=== PATIENT | female | born 1935 | race African-American/Black ===

== ENCOUNTER 2016-11-02 11:40 | Emergency (ER) | payer MEDICARE ==
[~2016-11-02] VITALS: Ht 167.6 cm; Wt 65.0 kg
[~2016-11-02 11:40] MED LIST: CALTTAB PO; CARB0.5D16 EACH EYE; CLON.1 PO; DOCU1CAP39 PO; FERR324T4 PO; FURO20 PO; GABA600T PO; K-TA10TA5 PO; LEXA10TA PO; LISI-591 PO; OXYB5TAB33 PO; PERC5TAB12 PO; PRIL20CA PO
[2016-11-02 11:50] VITALS: BP 150/80; RESP 22; TEMP 99; O2SAT 94
[2016-11-02] MEDS ORDERED: SODIUM CHLORIDE 0.9% FLUSH 5 ML FLUSH IVF PRN (12:00)
--- NOTE | 2016-11-02 12:02 | PD ---
HPI Chief Complaint: Respiratory Symptoms Time Seen by Provider: 11:57 Travel History International Travel<30 days: No Contact w/Intl Traveler<30days: No Traveled to known affect area: No History of Present Illness HPI 81-year-old elderly female presents to the emergency department for evaluation of coughing and shortness of breath. The patient states she lives with her daughter. She arrived via EMS. The patient stated she started coughing this morning around 4:30 AM. She started coughing so hard that it made her short of breath. She denies any shortness of breath at this time. She states that she feels tired, but otherwise okay at this time. She denies any chest pain. No abdominal pain. She reports one episode of vomiting. No diarrhea or constipation. Patient states she saw her doctor this morning and stated her temperature was 99.5. She does not have a history of COPD or asthma. She denies any previous smoking history. No recent travel or surgeries. Patient has a PMH of HTN, SIL, diastolic dysfunction. PFSH Past Medical History Arthritis: Yes Asthma: No Anxiety: Yes Depression: No Heart Rhythm Problems: No Cancer: No Cardiovascular Problems: Yes High Cholesterol: No Chemotherapy: No Chest Pain: No Congestive Heart Failure: No COPD: No Cerebrovascular Accident: No Diabetes: No Diminished Hearing: Yes Endocrine: No Gastrointestinal Disorders: Yes GERD: Yes Genitourinary: Yes (INCONTINENCE) Headaches: No Hepatitis: No Hiatal Hernia: Yes Hypertension: Yes Immune Disorder: No Implanted Vascular Access Dvce: Yes Kidney Stones: No Musculoskeletal: Yes (SPINAL STENOSIS, OSTEOPOROSIS) Neurologic: Yes ("TIA'S") Psychiatric: Yes (CLAUSTROPHOBIA) Reproductive: No Respiratory: Yes Migraines: No Radiation Therapy: No Renal Failure: No Seizures: No Sickle Cell Disease: No Sleep Apnea: Yes (does not use cpap at home currently ) Thyroid Disease: No Ulcer: Yes : 6 Para: 6 Past Surgical History Abdominal Surgery: Yes (CHOLECYSTECTOMY, INSERTION NERVE STIMULATOR) AICD: No Arteriovenous Shunt: No Body Medical Devices: RT. ABD NERVE STIM, HARDWARE LEFT ARM/ RIGHT FEMUR, LEFT COCHLEAR IMPL. Cardiac Surgery: No Cholecystectomy: Yes Ear Surgery: Yes (COCHLEAR IMPLANT LEFT EAR) Endocrine Surgery: No Eye Surgery: No Gynecologic Surgery: Yes (HYSTERECTOMY) Hysterectomy: Yes Insulin Pump: No Joint Replacement: No Neurologic Surgery: No Oral Surgery: No Pacemaker: No Thoracic Surgery: No Other Surgery: Yes Social History Alcohol Use: No Tobacco Use: No Substance Use: No Allergies-Medications (Allergen,Severity, Reaction): Coded Allergies: Cymbalta (Unverified Adverse Reaction, Severe, NAUSEA, 03/26/16) Sinemet 10/100 (Unverified Adverse Reaction, Severe, HYPERTENSIOIN, LETHARGY, 03/26/16) Reported Meds & Prescriptions Reported Meds & Active Scripts Active Percocet 5-325 mg (Oxycodone/Acetaminophen) Oxycodone 5/325 Acetaminophen Tab 1 Tab PO Q6HR PRN hold for sedation Reported Prilosec 20 mg (Omeprazole) 20 Mg Cap 20 Mg PO BID K-Tabs (Potassium Chloride) 10 Meq Tab 10 Meq PO DAILY Catapres 0.1 mg (Clonidine HCl) 0.1 Mg Tab 1 Tab PO SBP>170 Colace 100 Mg Cap (Docusate Sodium) 100 Mg Cap 100 Mg PO DAILY Tears Naturale (Artificial Tears) 15 Ml Soln 1 Drop EACH EYE DAILY Gabapentin 600 Mg Tab 600 Mg PO QID Ferrous Sulfate 325 Mg Tab 325 Mg PO DAILY Lasix 20 Mg Tab (Furosemide) 20 Mg Tab 20 Mg PO DAILY Ditropan (Oxybutynin Chloride) 5 Mg Tab 5 Mg PO DAILY Caltrate 600+D (Calcium Carbonate/Cholecalciferol) + Tab 1 Tab PO DAILY Zestril 20 mg (Lisinopril) 20 Mg Tab 20 Mg PO DAILY Lexapro (Escitalopram Oxalate) 10 Mg Tab 10 Mg PO DAILY Review of Systems Except as stated in HPI: all other systems reviewed are Neg Physical Exam Narrative GENERAL: Well-developed well-nourished elderly female patient, afebrile. SKIN: Warm and dry. HEAD: Normocephalic. Atraumatic. EYES: No scleral icterus. No injection or drainage. NECK: Supple, trachea midline. No JVD or lymphadenopathy. CARDIOVASCULAR: Regular rate and rhythm without murmurs, gallops, or rubs. RESPIRATORY: Breath sounds equal bilaterally. No accessory muscle use. Lungs sounds clear to auscultation. GASTROINTESTINAL: Abdomen soft, non-tender, nondistended. MUSCULOSKELETAL: No cyanosis, or edema. BACK: Nontender without obvious deformity. No CVA tenderness. Data Data Last Documented VS Vital Signs Date Time Temp Pulse Resp B/P Pulse Ox O2 Delivery O2 Flow Rate FiO2 11/02/16 13:38 89 164/73 11/02/16 13:38 97 Room Air 11/02/16 11:54 2 11/02/16 11:50 99.0 22 Orders Complete Blood Count With Diff (11/02/16 11:52) Basic Metabolic Panel (Bmp) (11/02/16 11:52) B-Type Natriuretic Peptide (11/02/16 11:52) Magnesium (Mg) (11/02/16 11:52) Influenzae A/B Antigen (11/02/16 11:52) Iv Access Insert/Monitor (11/02/16 11:52) Electrocardiogram (11/02/16 11:52) Ecg Monitoring (11/02/16 11:52) Oximetry (11/02/16 11:52) Oxygen Administration (11/02/16 11:52) Chest, Single Ap (11/02/16 11:52) Sodium Chloride 0.9% Flush (Ns Flush) (11/02/16 12:00) Creatine Kinase (Cpk) (11/02/16 13:39) Troponin I (11/02/16 13:39) Labs Laboratory Tests Test 11/02/16 12:20 White Blood Count 14.4 TH/MM3 Red Blood Count 3.95 MIL/MM3 Hemoglobin 12.4 GM/DL Hematocrit 36.6 % Mean Corpuscular Volume 92.7 FL Mean Corpuscular Hemoglobin 31.4 PG Mean Corpuscular Hemoglobin 33.9 % Concent Red Cell Distribution Width 14.4 % Platelet Count 261 TH/MM3 Mean Platelet Volume 9.9 FL Neutrophils (%) (Auto) 78.3 % Lymphocytes (%) (Auto) 11.9 % Monocytes (%) (Auto) 8.0 % Eosinophils (%) (Auto) 1.2 % Basophils (%) (Auto) 0.6 % Neutrophils # (Auto) 11.3 TH/MM3 Lymphocytes # (Auto) 1.7 TH/MM3 Monocytes # (Auto) 1.2 TH/MM3 Eosinophils # (Auto) 0.2 TH/MM3 Basophils # (Auto) 0.1 TH/MM3 CBC Comment DIFF FINAL Differential Comment Sodium Level 139 MEQ/L Potassium Level 4.0 MEQ/L Chloride Level 105 MEQ/L Carbon Dioxide Level 24.8 MEQ/L Anion Gap 9 MEQ/L Blood Urea Nitrogen 8 MG/DL Creatinine 0.74 MG/DL Estimat Glomerular Filtration 91 ML/MIN Rate Random Glucose 99 MG/DL Calcium Level 8.2 MG/DL Magnesium Level 2.0 MG/DL Total Creatine Kinase 65 U/L Troponin I 0.02 NG/ML B-Type Natriuretic Peptide 86 PG/ML MDM Medical Decision Making Medical Screen Exam Complete: Yes Emergency Medical Condition: Yes Medical Record Reviewed: Yes Interpretation(s) chest x-ray - CONCLUSION: 1. No acute cardiopulmonary disease. Differential Diagnosis URI versus influenza versus pneumonia versus CHF Narrative Course 81-year-old elderly female presents to the emergency department for evaluation of cough and shortness of breath that started this morning. Patient does appear well on exam. EKG, CBC, BMP, CK, Troponin, BNP, magnesium, influenza, chest x-ray ordered and pending. EKG shows sinus rhythm, heart rate 95, no acute ST changes. CBC shows leukocytosis of 14.4, neutrophilia 78.3. BMP shows no acute abnormality. CK is 65. Troponin is 0.02. BNP is 86. Magnesium is 2. all. Influenza is negative. Chest x-ray shows no acute cardiopulmonary disease. Upon reexamination, patient states that she feels "pretty good". She states she was recently on a Z-Chris approximately 1-2 weeks ago for a URI. Therefore, patient will be started on Levaquin. She is instructed to follow-up with her primary care physician. She is instructed to return immediately for any acute worsening of symptoms. Patient is agreeable to this plan. Diagnosis Primary Impression: Upper respiratory infection Qualified Code: J06.9 - Upper respiratory tract infection, unspecified type Referrals: Primary Care Physician call for appointment Patient Instructions: General Instructions, Upper Respiratory Infection (ED) Additional Instructions: Take antibiotic as directed until gone. Take benzonatate capsules as needed as directed for cough. Follow up with your primary care physician. Return to the emergency department for any acute, worsening of symptoms. Med/Other Pt SpecificInfo: Prescription(s) given Scripts Benzonatate 200 Mg [id number] Mg PO TID PRN (COUGH) #21 CAP Ref 0 Prov:Leanna Manrique 11/02/16 Levofloxacin (Levaquin)500 Mg [id number] Mg PO DAILY 7 Days Ref 0 Prov:Leanna Manrique 11/02/16 Disposition: 01 DISCHARGE HOME Condition: Stable Burton,Leanna NATHAN Nov 02, 2016 12:02
[2016-11-02 12:42] LABS: AUTOMATED NEUTROPHIL # 11.3 TH/MM3 (1.8-7.7); BASOPHIL # 0.1 TH/MM3 (0-0.2); BASOPHIL % 0.6 % (0.0-2.0); EOSINOPHIL # 0.2 TH/MM3 (0-0.4); EOSINOPHIL % 1.2 % (0.0-4.0); HEMATOCRIT 36.6 % (35.0-46.0); HEMO FLAGS DIFF FINAL; LYMPH % 11.9 % (9.0-44.0); LYMPHOCYTE # 1.7 TH/MM3 (1.0-4.8); MEAN CELL VOLUME 92.7 FL (80.0-100.0); MEAN CORPUSCULAR HEMOGLOBIN 31.4 PG (27.0-34.0); MEAN CORPUSCULAR HGB CONC 33.9 % (32.0-36.0); NEUT % 78.3 % (16.0-70.0); PLATELET COUNT 261 TH/MM3 (150-450); RED BLOOD COUNT 3.95 MIL/MM3 (4.00-5.30); RED CELL DISTRIBUTION WIDTH 14.4 % (11.6-17.2); WHITE BLOOD COUNT 14.4 TH/MM3 (4.0-11.0)
[2016-11-02 13:12] LABS: BICARBONATE 24.8 MEQ/L (21.0-32.0)
--- NOTE | 2016-11-02 13:36 | RADRPT ---
EXAM DATE/TIME: 11/02/2016 13:08 [facility] COMPARISON: CHEST SINGLE AP, August 23, 2015, 13:02. INDICATIONS : Short of breath. Cough. MEDICAL HISTORY : Hypertension. Cerebrovascular disease. Sleep apnea. SURGICAL HISTORY : Left shoulder repair. Spinal stimulator. ENCOUNTER: Initial ACUITY: 2 weeks PAIN SCORE: 0/10 LOCATION: Bilateral chest FINDINGS: The heart and mediastinal structures are stable. The pulmonary vascular pattern is normal. The lung s are clear. Spinal stimulator is noted within the mid thoracic spine. Degenerative changes are not ed throughout the thoracic and upper lumbar spine. Hardware is noted within the left proximal humeru s. The heart is stable. CONCLUSION: 1. No acute cardiopulmonary disease. Guicho Garcia MD on November 02, 2016 at 13:28 Board Certified Radiologist. This report was verified electronically.
[2016-11-02 13:38] VITALS: BP 164/73; PULSE 89
[2016-11-02] MEDS ORDERED: LEVA500T PO (14:20)
[2016-11-02] MEDS ORDERED: BENZ1CAP34 PO (14:20)
[2016-11-02 14:27] VITALS: BP_SYST 145; BP_SYST 164; BP_DIAS 69; BP_DIAS 79
[2016-11-02] MEDS ORDERED: LEXA10TA PO (20:19)
[2016-11-02] MEDS ORDERED: CLON0.1T PO (20:19)
[2016-11-02] MEDS ORDERED: GABA600T PO (20:19)
[2016-11-02] MEDS ORDERED: OXYB5TAB10 PO (20:19)
[2016-11-02] MEDS ORDERED: FURO1TAB62 PO (20:19)
[2016-11-02] MEDS ORDERED: LISI-515 PO (20:19)
[2016-11-02] MEDS ORDERED: ARTI1SOL3 EACH EYE (20:19)
[2016-11-02] MEDS ORDERED: OXYC1TAB63 PO (20:19)
[2016-11-02] MEDS ORDERED: OMEP20TA PO (20:19)
[2016-11-02] MEDS ORDERED: POTA10TA8 PO (20:19)
--- NOTE | 2016-11-03 10:25 | EKG ---
Date Performed: 11/02/2016 Time Performed: 12:55:37 PTAGE: 81 years EKG: Sinus rhythm NONSPECIFIC T-WAVE ABNORMALITY BORDERLINE ECG PREVIOUS TRACING : 08/26/2015 19.10 DOCTOR: Good Ramirez Interpretating Date/Time 11/03/2016 10:21:17
== END 2016-11-02 14:56 | disposition home or self-care (01) ==
LOC: NEPA 11:40
DX: J06.9 Acute upper respiratory infection, unspecified (principal); I10 Essential (primary) hypertension; R94.31 Abnormal electrocardiogram [ECG] [EKG]; R05 Cough
CPT/HCPCS: 71010; 80048; 82550; 83735; 83880; 84484; 85025; 87804; 93005

== ENCOUNTER 2016-11-02 19:25 | Inpatient (IN) | payer MEDICARE ==
[~2016-11-02] VITALS: Ht 167.6 cm; Wt 61.0 kg
[~2016-11-02 19:25] MED LIST changes: +BENZ1CAP34 PO; +LEVA500T PO
[2016-11-02 19:28] VITALS: BP 144/80; PULSE 130; RESP 30; TEMP 98.5; O2SAT 98
[2016-11-02 19:37] VITALS: O2SAT 100
[2016-11-02] MEDS: NITROGLYCERIN 0.4 MG SL 25 TABS/BTL SL SCH ×3 (19:43→19:55)
[2016-11-02] MEDS ORDERED: ASPIRIN 325 MG TAB PO ONE (19:45)
[2016-11-02] MEDS: METOPROLOL TARTRATE 5 MG/5 ML VIAL IVS SCH ×3 (19:45→19:55)
--- NOTE | 2016-11-02 19:46 | PD ---
HPI Chief Complaint: Respiratory Distress Time Seen by Provider: 19:34 Travel History International Travel<30 days: No Contact w/Intl Traveler<30days: No Traveled to known affect area: No History of Present Illness HPI The patient is 81 years old and arrives by EMS due to shortness of breath. EMS reports wheezing and retraction on scene. Patient was able to speak in very short sentences on scene. The O2 sat was 96%. They gave 2 rounds of albuterol and 125 mg of Zofran. EMS reports wheezing improved after treatments. She has no history of asthma COPD. She denies history of CHF. She does take Lasix. In the ER she denies chest pain. She also denies fever. The patient has been short of breath throughout the course of the day. She was seen here earlier today and diagnosed with a URI and discharged with Levaquin which she took aspirin prescribed. She reports coughing quite a bit over the past few days and completed a Z-maria elena prescribed last week. On scene EMS reports a blood pressure of 160/96, heart rate 123 and tachypnea at 30 breaths per minute. The daughter provides additional information noting that the nausea and vomiting started prior to EMS arrival. She was also diaphoretic prior to EMS arrival. Coughing up white phlegm was observed at home prior to EMS arrival. PFSH Past Medical History Arthritis: Yes Asthma: No Anxiety: Yes Depression: No Heart Rhythm Problems: No Cancer: No Cardiovascular Problems: Yes High Cholesterol: No Chemotherapy: No Chest Pain: No Congestive Heart Failure: No COPD: No Cerebrovascular Accident: No Diabetes: No Diminished Hearing: Yes Endocrine: No Gastrointestinal Disorders: Yes (ESOPHAGEAL DIL/ BOTOX, GERD, CONSTIPATION) GERD: Yes Genitourinary: Yes (INCONTINENCE) Headaches: No Hepatitis: No Hiatal Hernia: Yes Heparin Induced Thrombocytopen: No Hypertension: Yes Immune Disorder: No Implanted Vascular Access Dvce: Yes Kidney Stones: No Musculoskeletal: Yes (SPINAL STENOSIS, OSTEOPOROSIS) Neurologic: Yes ("TIA'S") Psychiatric: Yes (CLAUSTROPHOBIA) Reproductive: No Respiratory: Yes Migraines: No Radiation Therapy: No Renal Failure: No Seizures: No Sickle Cell Disease: No Sleep Apnea: Yes (does not use cpap at home currently ) Thyroid Disease: No Ulcer: Yes Influenza Vaccination: No : 6 Para: 6 Past Surgical History Abdominal Surgery: Yes (CHOLECYSTECTOMY, INSERTION NERVE STIMULATOR) AICD: No Arteriovenous Shunt: No Body Medical Devices: RT. ABD NERVE STIM, HARDWARE LEFT ARM/ RIGHT FEMUR, LEFT COCHLEAR IMPL. Cardiac Surgery: No Cholecystectomy: Yes Ear Surgery: Yes (COCHLEAR IMPLANT LEFT EAR) Endocrine Surgery: No Eye Surgery: No Gynecologic Surgery: Yes (HYSTERECTOMY) Hysterectomy: Yes Insulin Pump: No Joint Replacement: No Neurologic Surgery: No Oral Surgery: No Pacemaker: No Thoracic Surgery: No Other Surgery: Yes Social History Alcohol Use: No Tobacco Use: No Substance Use: No Allergies-Medications (Allergen,Severity, Reaction): Coded Allergies: Cymbalta (Unverified Adverse Reaction, Severe, NAUSEA, 11/02/16) Sinemet 10/100 (Unverified Adverse Reaction, Severe, HYPERTENSIOIN, LETHARGY, 11/02/16) Reported Meds & Prescriptions Reported Meds & Active Scripts Active Benzonatate 200 Mg Cap 200 Mg PO TID PRN Levaquin (Levofloxacin) 500 Mg Tab 500 Mg PO DAILY 7 Days Reported Potassium Chloride CR (Potassium Chloride) 10 Meq Tab 10 Meq PO DAILY Oxycodone-Acetaminophen 5-325 mg Tab 1 Tab PO Q6H PRN Ditropan (Oxybutynin Chloride) 5 Mg Tab 5 Mg PO DAILY Omeprazole 20 Mg Tab 20 Mg PO BID Lisinopril 20 Mg Tab 20 Mg PO DAILY Gabapentin 600 Mg Tab 600 Mg PO QID Lasix (Furosemide) 20 Mg Tab 20 Mg PO DAILY Lexapro (Escitalopram Oxalate) 10 Mg Tab 10 Mg PO DAILY Clonidine (Clonidine HCl) 0.1 Mg Tab 0.1 Mg PO DAILY PRN Genteal Tears Opth Drops (Artificial Tears Opth Drops) 0.1-0.2-0.3% Soln 1 Drop EACH EYE DAILY Review of Systems Except as stated in HPI: all other systems reviewed are Neg Physical Exam Narrative GENERAL: 81-year-old female pleasant well-nourished well-developed speaking in short sentences mild to moderate distress SKIN: Warm and dry. HEAD: Atraumatic. Normocephalic. EYES: Pupils equal and round. No scleral icterus. No injection or drainage. ENT: No nasal bleeding or discharge. Mucous membranes pink and moist. NECK: Trachea midline. No JVD. CARDIOVASCULAR: Tachycardia. Regular rhythm. RESPIRATORY: Minimal dyspnea. Expiratory wheezes present. GASTROINTESTINAL: Abdomen soft, non-tender, nondistended. Hepatic and splenic margins not palpable. MUSCULOSKELETAL: No obvious deformities. No clubbing. No cyanosis. No edema. NEUROLOGICAL: Awake and alert. No obvious cranial nerve deficits. Motor grossly within normal limits. Normal speech. PSYCHIATRIC: Appropriate mood and affect; insight and judgment normal. Data Data Last Documented VS Vital Signs Date Time Temp Pulse Resp B/P Pulse Ox O2 Delivery O2 Flow Rate FiO2 11/02/16 19:37 100 Nasal Cannula 2 11/02/16 19:28 98.5 130 30 144/80 Orders Complete Blood Count With Diff (11/02/16 19:34) Basic Metabolic Panel (Bmp) (11/02/16 19:34) B-Type Natriuretic Peptide (11/02/16 19:34) Act Partial Throm Time (Ptt) (11/02/16 19:34) Prothrombin Time / Inr (Pt) (11/02/16 19:34) Magnesium (Mg) (11/02/16 19:34) Ckmb (Isoenzyme) Profile (11/02/16 19:34) Troponin I (11/02/16 19:34) Urinalysis - C+S If Indicated (11/02/16 19:34) Iv Access Insert/Monitor (11/02/16 19:34) Electrocardiogram (11/02/16 19:34) Ecg Monitoring (11/02/16 19:34) Oximetry (11/02/16 19:34) Oxygen Administration (11/02/16 19:34) Chest, Single Ap (11/02/16 19:34) Sodium Chloride 0.9% Flush (Ns Flush) (11/02/16 19:45) Aspirin (Aspirin) (11/02/16 19:45) Nitroglycerin Sl (Nitrostat Sl) (11/02/16 19:45) Metoprolol Tartrate Inj (Lopressor Inj) (11/02/16 19:45) Electrocardiogram (11/02/16 ) Urine Culture (11/02/16 19:45) Albuterol-Ipratropium Neb (Duoneb Neb) (11/03/16 08:00) Troponin I (11/02/16 20:33) Troponin I (11/03/16 04:33) Troponin I (11/03/16 12:33) Troponin I (11/03/16 20:33) Electrocardiogram (11/03/16 06:00) Ceftriaxone Inj (Rocephin Inj) (11/02/16 20:45) Heparin Infusion FLORECITA.Q1H (11/02/16 20:47) Heparin Inj (Heparin Inj) (11/02/16 21:00) Heparin-D5w Inj (Heparin-D5w Inj) (11/02/16 21:00) Cbc No Diff, Includes Plts (11/05/16 06:00) Act Partial Throm Time (Ptt) (11/03/16 03:47) Occult Blood (Hemoccult) Stool (11/02/16 20:47) Admit Order (Ed Use Only) (11/02/16 21:03) Labs Laboratory Tests Test 11/02/16 19:45 White Blood Count 15.0 TH/MM3 Red Blood Count 4.19 MIL/MM3 Hemoglobin 12.7 GM/DL Hematocrit 39.4 % Mean Corpuscular Volume 93.9 FL Mean Corpuscular Hemoglobin 30.3 PG Mean Corpuscular Hemoglobin 32.2 % Concent Red Cell Distribution Width 14.2 % Platelet Count 288 TH/MM3 Mean Platelet Volume 10.0 FL Neutrophils (%) (Auto) 64.1 % Lymphocytes (%) (Auto) 26.6 % Monocytes (%) (Auto) 8.1 % Eosinophils (%) (Auto) 0.7 % Basophils (%) (Auto) 0.5 % Neutrophils # (Auto) 9.6 TH/MM3 Lymphocytes # (Auto) 4.0 TH/MM3 Monocytes # (Auto) 1.2 TH/MM3 Eosinophils # (Auto) 0.1 TH/MM3 Basophils # (Auto) 0.1 TH/MM3 CBC Comment DIFF FINAL Differential Comment Prothrombin Time 11.5 SEC Prothromb Time International 1.0 RATIO Ratio Activated Partial 24.3 SEC Thromboplast Time Urine Color YELLOW Urine Turbidity HAZY Urine pH 6.0 Urine Specific [place] 1.013 Urine Protein 30 mg/dL Urine Glucose (UA) NEG mg/dL Urine Ketones NEG mg/dL Urine Occult Blood SMALL Urine Nitrite POS Urine Bilirubin NEG Urine Urobilinogen LESS THAN 2.0 MG/DL Urine Leukocyte Esterase LARGE Urine RBC 2 /hpf Urine WBC 97 /hpf Urine Squamous Epithelial 1 /hpf Cells Urine Bacteria RARE /hpf Urine Mucus FEW /lpf Microscopic Urinalysis Comment CULTURE INDICATED Sodium Level 141 MEQ/L Potassium Level 3.5 MEQ/L Chloride Level 105 MEQ/L Carbon Dioxide Level 26.4 MEQ/L Anion Gap 10 MEQ/L Blood Urea Nitrogen 7 MG/DL Creatinine 0.80 MG/DL Estimat Glomerular Filtration 83 ML/MIN Rate Random Glucose 120 MG/DL Calcium Level 8.5 MG/DL Magnesium Level 2.0 MG/DL Total Creatine Kinase 56 U/L Troponin I 0.16 NG/ML B-Type Natriuretic Peptide 130 PG/ML MDM Medical Decision Making Medical Screen Exam Complete: Yes Emergency Medical Condition: Yes Differential Diagnosis NSTEMI, unstable angina, coronary vasospasm, PE, PTX, aortic dissection, pericarditis, myocarditis, endocarditis, PNA, esophageal disease, aneurysm, musculoskeletal etiologies, anxiety, cocaine/sympathomimetic abuse Narrative Course EKG reveals a left bundle branch block pattern with a rate of 130 which appears new Second EKG reveals a sinus rhythm at a rate of about 85 with normal axis intervals The patient received metoprolol in the interval between EKGs. CBC & BMP Diagram 11/02/16 19:45 Troponin is 0.16 BNP 130 Urinalysis reveals a UTI INR 1.0 CXR: NACPD Patient reassessed just prior to admission and reports feeling better. She does appear somewhat weak. VS normal. O2 sat 100% on 2L without dyspnea/ tachypnea. Case discussed with Dr. Gusman evaluated the patient at the bedside. Serial enzymes. Elevated initial troponin is of some concern especially with a bundle- branch block. Heparin started. Case discussed Dr Fernandez for [facility], admission to [facility]. Diagnosis Primary Impression: Dyspnea Qualified Code: R06.00 - Dyspnea, unspecified type Additional Impressions: Cystitis LBBB (left bundle branch block) Elevated troponin I level Admitting Information Admitting Physician Requests: Admit Jh Ott MD Nov 02, 2016 19:46
[2016-11-02] MEDS: SODIUM CHLORIDE 0.9% FLUSH 5 ML FLUSH IVF PRN (19:47)
[2016-11-02 20:00] VITALS: BP 139/63; PULSE 91; RESP 22; O2SAT 97
--- NOTE | 2016-11-02 20:07 | RADRPT ---
EXAM DATE/TIME: 11/02/2016 19:43 [facility] COMPARISON: CHEST SINGLE AP, November 02, 2016, 13:08. INDICATIONS : Short of breath. Cough. MEDICAL HISTORY : Hypertension. Cerebrovascular disease. Sleep apnea. SURGICAL HISTORY : Left shoulder repair. Spinal stimulator. ENCOUNTER: Subsequent ACUITY: 1 day PAIN SCORE: Non-responsive. LOCATION: Bilateral chest FINDINGS: A single view of the chest demonstrates the lungs to be symmetrically aerated without evidence of mas s, infiltrate or effusion. The cardiomediastinal contours are unremarkable. Osseous structures are intact and stable. There is a spinal stimulator along the midthoracic spine area. This is unchanged i n position compared to the prior study.. CONCLUSION: No acute disease. No significant change has occurred. Alex White MD on November 02, 2016 at 20:05 Board Certified Radiologist. This report was verified electronically.
[2016-11-02 20:19] LABS: AUTOMATED NEUTROPHIL # 9.6 TH/MM3 (1.8-7.7); BASOPHIL # 0.1 TH/MM3 (0-0.2); BASOPHIL % 0.5 % (0.0-2.0); EOSINOPHIL # 0.1 TH/MM3 (0-0.4); EOSINOPHIL % 0.7 % (0.0-4.0); HEMATOCRIT 39.4 % (35.0-46.0); HEMO FLAGS DIFF FINAL; LYMPH % 26.6 % (9.0-44.0); MEAN CELL VOLUME 93.9 FL (80.0-100.0); MEAN CORPUSCULAR HEMOGLOBIN 30.3 PG (27.0-34.0); MEAN CORPUSCULAR HGB CONC 32.2 % (32.0-36.0); MONO % 8.1 % (0.0-8.0); NEUT % 64.1 % (16.0-70.0); PLATELET COUNT 288 TH/MM3 (150-450); RED BLOOD COUNT 4.19 MIL/MM3 (4.00-5.30); RED CELL DISTRIBUTION WIDTH 14.2 % (11.6-17.2)
[2016-11-02] MEDS ORDERED: CLON0.1T PO (20:19)
[2016-11-02] MEDS ORDERED: POTA10TA8 PO (20:19)
[2016-11-02] MEDS ORDERED: OXYB5TAB10 PO (20:19)
[2016-11-02] MEDS ORDERED: GABA600T PO (20:19)
[2016-11-02] MEDS ORDERED: OMEP20TA PO (20:19)
[2016-11-02] MEDS ORDERED: FURO1TAB62 PO (20:19)
[2016-11-02] MEDS ORDERED: LEXA10TA PO (20:19)
[2016-11-02] MEDS ORDERED: LISI-515 PO (20:19)
[2016-11-02] MEDS ORDERED: OXYC1TAB63 PO (20:19)
[2016-11-02] MEDS ORDERED: ARTI1SOL3 EACH EYE (20:19)
[2016-11-02 20:22] LABS: BACTERIA, URINE RARE /hpf; BLOOD, URINE SMALL (NEG); COMMENT (UR) CULTURE INDICATED; CULTURE IF INDICATED CULTURE INDICATED; GLUCOSE,URINE NEG (NEG); KETONE, URINE NEG (NEG); MUCUS URINE FEW /lpf (OCC); SQUAMOUS EPITHELIAL CELL URINE 1 /hpf (0-5); URINE COLOR YELLOW (YELLW/STRAW)
[2016-11-02 20:23] LABS: NITRITE,URINE POS (NEG)
[2016-11-02 20:29] LABS: APTT (PATIENT) 24.3 SEC (24.3-30.1); PROTHROMBIN TIME - PATIENT 11.5 SEC (9.8-11.6)
[2016-11-02 20:33] LABS: BICARBONATE 26.4 MEQ/L (21.0-32.0); POTASSIUM 3.5 MEQ/L (3.5-5.1)
[2016-11-02] MEDS ORDERED: cefTRIAXone INJ 1,000 MG in SODIUM CHLORIDE 0.9% INJ 100 ML IV ONE (20:45)
[2016-11-02] MEDS ORDERED: HEPARIN SODIUM - IV 10,000 UNITS/10 ML VIAL IV ONE (21:00)
[2016-11-02 22:14] VITALS: O2SAT 98
[2016-11-02] MEDS: RESP: ALBUTEROL 2.5 MG/IPRATROPIUM 0.5 MG NEB (PRN) NEB (22:14)
--- NOTE | 2016-11-02 22:16 | HHI.HP ---
HPI Service [facility] Hospitalists Primary Care Physician Rosendo Dougherty Admission Diagnosis Dyspnea, Elevated Tn, UTI, N/V Chief Complaint: Shortness of breath, cough, elevated heart rate Travel History International Travel<30 Days: No Contact w/Intl Traveler <30 Da: No Traveled to Known Affected Are: No Sepsis Criteria SIRS Criteria (2 or more): Heart rate over 90, WBC > 20610, < 4000 or > 10% bands Criteria Outcome: Meets SIRS criteria History of Present Illness The patient is 81 years old and arrives by EMS due to shortness of breath. EMS reports wheezing and retraction on scene. Patient was able to speak in very short sentences on scene. The O2 sat was 96%. They gave 2 rounds of albuterol and 125 mg of Solu-Medrol. EMS reports wheezing improved after treatments. She has no history of asthma or COPD per family report. She denies history of CHF. She does take Lasix. In the ER she denies chest pain. She also denies fever. The patient has been short of breath throughout the course of the day. She was seen here in the ER earlier today and diagnosed with a URI and discharged with Levaquin which she took as prescribed. She reports coughing quite a bit over the past few days and completed a Z-maria elena prescribed last week. Cough has been generally nonproductive with the exception of some white frothy discharge earlier today per family member. On scene EMS reports a blood pressure of 160/96, heart rate 123 and tachypnea at 30 breaths per minute. The daughter provides additional information noting that the nausea and vomiting started prior to EMS arrival. She was also diaphoretic prior to EMS arrival. No hemoptysis or hematemesis. She was noted to have a left bundle branch block initially per ER physician which resolved with metoprolol administration. She has been evaluated by Dr. Gusman from cardiology and serial enzymes have been ordered. Review of Systems Constitutional: COMPLAINS OF: Fatigue Ears, nose, mouth, throat: COMPLAINS OF: Hearing loss Respiratory: COMPLAINS OF: Cough, Wheezing, Sputum production, Shortness of breath Cardiovascular: DENIES: Chest pain, Palpitations, Syncope, Dyspnea on Exertion , PND, Lower Extremity Edema, Orthopnea, Claudication Gastrointestinal: COMPLAINS OF: Nausea, Vomiting, DENIES: Abdominal pain, Black stools, Bloody stools, BRB per rectum, Constipation, Diarrhea, GERD, Reflux, Difficulty Swallowing, Anorexia, See HPI Musculoskeletal: COMPLAINS OF: Joint pain Neurologic: COMPLAINS OF: Abnormal gait Psychiatric: COMPLAINS OF: Anxiety Past Family Social History Past Medical History HTN Spinal stenosis GERD LVH SIL on CPAP at night Depression Chronic back pain 2D echo (03/09/2011): - LV with mild concentric hypertrophy - EF 55-60% - Diastolic dysfunction - Mild thickening of the aortic valve leaflets and mitral valve leaflets Past Surgical History ORIF of left arm fracture 04/27/15 Cholecystectomy BRIAN with BSO L3-5 laminectomy/microdiskectomy Cochlear implant EGD with dilatation Reported Medications Benzonatate 200 Mg Cap 200 Mg PO TID PRN Levaquin (Levofloxacin) 500 Mg Tab 500 Mg PO DAILY 7 Days- started today. Potassium Chloride CR (Potassium Chloride) 10 Meq Tab 10 Meq PO DAILY Oxycodone-Acetaminophen 5-325 mg Tab 1 Tab PO Q6H PRN Ditropan (Oxybutynin Chloride) 5 Mg Tab 5 Mg PO DAILY Omeprazole 20 Mg Tab 20 Mg PO BID Lisinopril 20 Mg Tab 20 Mg PO DAILY Gabapentin 600 Mg Tab 600 Mg PO QID Lasix (Furosemide) 20 Mg Tab 20 Mg PO DAILY Lexapro (Escitalopram Oxalate) 10 Mg Tab 10 Mg PO DAILY Clonidine (Clonidine HCl) 0.1 Mg Tab 0.1 Mg PO DAILY PRN Genteal Tears Opth Drops (Artificial Tears Opth Drops) 0.1-0.2-0.3% Soln 1 Drop EACH EYE DAILY Allergies: Coded Allergies: Cymbalta (Unverified Adverse Reaction, Severe, NAUSEA, 11/02/16) Sinemet 10/100 (Unverified Adverse Reaction, Severe, HYPERTENSIOIN, LETHARGY, 11/02/16) Family History Noncontributory Social History Denies alcohol, tobacco or illicit drugs Her daughter lives with her and has done so for the last 1-1/2 years due to her general decline in patient's health 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 Physical Exam Vital Signs Vital Signs Date Time Temp Pulse Resp B/P Pulse Ox O2 Delivery O2 Flow Rate FiO2 11/02/16 19:37 100 Nasal Cannula 2 11/02/16 19:37 100 Nasal Cannula 2 11/02/16 19:32 100 Nasal Cannula 2 11/02/16 19:28 98.5 130 30 144/80 98 Physical Exam GENERAL: This is a well-nourished, well-developed patient, in no apparent distress. Somewhat hard of hearing. SKIN: Slightly xerotic.. Cool and dry. HEAD: Atraumatic. Normocephalic. No temporal or scalp tenderness. EYES: Pupils equal round and reactive. Extraocular motions intact. No scleral icterus. No injection or drainage. ENT: Nose without bleeding, purulent drainage or septal hematoma. Airway patent. NECK: Trachea midline. No JVD or lymphadenopathy. Supple, nontender, no meningeal signs. CARDIOVASCULAR: Regular rate and rhythm, 2/6 systolic ejection murmur best heard in aortic space. No gallop or rub. RESPIRATORY: Coarse breath sounds bilaterally with occasional expiratory wheeze particularly in right mid lung. No fine crackles. Fair air movement. GASTROINTESTINAL: Abdomen soft, non-tender, nondistended. No hepato-splenomegaly , or palpable masses. No guarding. MUSCULOSKELETAL: Extremities without clubbing, cyanosis, or edema. No calf tenderness. Moves all extremities. NEUROLOGICAL: Awake and alert. Cranial nerves II through XII intact. Five out of 4.5-5/5 muscle strength in all muscle groups. Normal speech. Laboratory Laboratory Tests Test 11/02/16 19:45 White Blood Count 15.0 Red Blood Count 4.19 Hemoglobin 12.7 Hematocrit 39.4 Mean Corpuscular Volume 93.9 Mean Corpuscular Hemoglobin 30.3 Mean Corpuscular Hemoglobin 32.2 Concent Red Cell Distribution Width 14.2 Platelet Count 288 Mean Platelet Volume 10.0 Neutrophils (%) (Auto) 64.1 Lymphocytes (%) (Auto) 26.6 Monocytes (%) (Auto) 8.1 Eosinophils (%) (Auto) 0.7 Basophils (%) (Auto) 0.5 Neutrophils # (Auto) 9.6 Lymphocytes # (Auto) 4.0 Monocytes # (Auto) 1.2 Eosinophils # (Auto) 0.1 Basophils # (Auto) 0.1 CBC Comment DIFF FINAL Differential Comment Prothrombin Time 11.5 Prothromb Time International 1.0 Ratio Activated Partial 24.3 Thromboplast Time Urine Color YELLOW Urine Turbidity HAZY Urine pH 6.0 Urine Specific [place] 1.013 Urine Protein 30 Urine Glucose (UA) NEG Urine Ketones NEG Urine Occult Blood SMALL Urine Nitrite POS Urine Bilirubin NEG Urine Urobilinogen LESS THAN 2.0 Urine Leukocyte Esterase LARGE Urine RBC 2 Urine WBC 97 Urine Squamous Epithelial 1 Cells Urine Bacteria RARE Urine Mucus FEW Microscopic Urinalysis Comment CULTURE INDICATED Sodium Level 141 Potassium Level 3.5 Chloride Level 105 Carbon Dioxide Level 26.4 Anion Gap 10 Blood Urea Nitrogen 7 Creatinine 0.80 Estimat Glomerular Filtration 83 Rate Random Glucose 120 Calcium Level 8.5 Magnesium Level 2.0 Total Creatine Kinase 56 Troponin I 0.16 B-Type Natriuretic Peptide 130 Date/Time Procedure Status Source Growth 11/02/16 19:45 Urine Culture Received Urine Clean Catch Pending Result Diagram: 11/02/16194411/02/161944 Imaging Last 72 hours Impressions Chest X-Ray 11/02/161933 Signed Impressions: Service Date/Time: Wednesday, November 02, 2016 19:43 - CONCLUSION: No acute disease. No significant change has occurred. Alex White MD Assessment and Plan Problem List: (1) Dyspnea Status: Acute Plan: Questionable etiology. She does have some evidence of reactive airway with some spasm noted. He also has some ongoing rhonchi does it appears. We'll provide ceftriaxone, DuoNeb and Solu-Medrol. She may have some underlying coronary disease given her left bundle branch and slightly elevated troponin. Dr. Gusman has seen the patient and given some orders. (2) Hypertension Status: Chronic Plan: Relatively well controlled currently. We'll continue to follow. (3) Elevated troponin I level Status: Acute Plan: Possibly demand mediated due to the elevated heart rate and dyspnea. As noted above, cardiology has seen the patient. Code Status Full Discussed Condition With Patient, her daughter, ER physician. Physician Certification 2 Midnight Certification Type: Admission for Inpatient Services Order for Inpatient Services The services are ordered in accordance with Medicare regulations or non- Medicare payer requirements, as applicable. In the case of services not specified as inpatient-only, they are appropriately provided as inpatient services in accordance with the 2-midnight benchmark. Estimated LOS (days): 2 days is the estimated time the patient will need to remain in the hospital, assuming treatment plan goals are met and no additional complications. Post-Hospital Plan: Not yet determined Problem Qualifiers (1) Dyspnea: Qualified Code: R06.00 - Dyspnea, unspecified type Mitchell Fernandez MD PhD Nov 02, 2016 22:16
[2016-11-02] MEDS: HEPARIN-D5W INJ 250 ML IV SCH (22:36)
[2016-11-02 23:00] VITALS: BP 158/69; PULSE 96; RESP 22; O2SAT 99
[2016-11-03] VITALS (26 sets, daily range): BP systolic 112–152; BP diastolic 62–74; PULSE 84–118; RESP 14–18; TEMP 97–99; O2SAT 97–100
[2016-11-03] MEDS ORDERED: GABAPENTIN 300 MG CAP PO ONE (00:15)
[2016-11-03] MEDS: oxyCODONE/ACETAMINOPHEN 5 MG/325 MG TAB PO SCH ×4 (00:33→18:13)
[2016-11-03 05:54] LABS: APTT (PATIENT) 68.5 SEC (24.3-30.1)
[2016-11-03 06:06] LABS: ALT (GPT) 11 U/L (10-53); AST (GOT) 10 U/L (15-37); BICARBONATE 24.7 MEQ/L (21.0-32.0); BLOOD UREA NITROGEN 8 MG/DL (7-18); CHLORIDE 106 MEQ/L (98-107); GLOMERULAR FILTRATION RATE 95 ML/MIN (>89); POTASSIUM 3.8 MEQ/L (3.5-5.1); SODIUM (NA) 140 MEQ/L (136-145)
[2016-11-03 06:07] LABS: ANION GAP 9 MEQ/L (5-15)
[2016-11-03 06:10] LABS: ALKALINE PHOSPHATASE 100 U/L (45-117); TOTAL BILIRUBIN ADULT 0.2 MG/DL (0.2-1.0)
--- NOTE | 2016-11-03 08:09 | MB ---
cc: ANN KILLIAN MD DATE OF CONSULTATION 11/02/2016 HISTORY OF PRESENT ILLNESS This is an 81-year-old woman who presents to the hospital with shortness of breath which actually began this morning at 4:30 with production of white phlegm. She came to the emergency department where she was seen, given an initial DuoNeb treatment and Levaquin and discharged. At home she became more short of breath with some nausea and vomiting and came back to the emergency department. On presentation to the emergency department her heart rate was quite elevated at 130 with a presentation of a new onset of a left bundle branch block. We have been asked to see her for that. Since she has been in the hospital her breathing has improved, heart rate has returned to normal and electrocardiogram now shows normal conduction with no acute ST or T-wave changes. She still has some shortness of breath, although it has been improved, no change in sputum production has been present. She has noted over the past two weeks, according to her daughter, chest discomfort which started in her anterior chest with radiation into her right side. This lasts for approximately 10-20 minutes, some onset is at rest and relieves spontaneously. No exertional discomfort has been present. She has had no prior history of heart problems. Denies any orthopnea, PND or ankle edema. RISK FACTORS FOR CORONARY DISEASE History of hypertension. She is a never smoker. She has no history of diabetes or hyperlipidemia. PAST MEDICAL HISTORY 1. Otherwise has been significant for some GERD and constipation in the past. 2. She has had problems with us spinal stenosis. 3. She has a history of sleep apnea but does not use her C-PAP at home. SOCIAL HISTORY The patient does not smoke, drink or use recreational drugs. ALLERGIES 1. Cymbalta. 2. Sinemet. CURRENT MEDICATIONS Levaquin 500 mg daily. REVIEW OF SYSTEMS Apart from above, is significant only for problems hearing and has a cochlear implant. PHYSICAL EXAMINATION GENERAL: On physical exam she is awake and alert and in no acute distress. VITAL SIGNS: Her blood pressure is 140/80, pulse is 80 and regular. NECK: There is no neck vein distension. LUNGS: Scattered rhonchi with coarse breath sounds. Expiratory wheezes are noted. CARDIOVASCULAR: Exam reveals a regular rate and rhythm. There is a 1/6 systolic murmur heard best at the left sternal border. No diastolic murmur is present. ABDOMEN: Soft without tenderness. EXTREMITIES: Reveal no edema. ELECTROCARDIOGRAM Sinus rhythm with nonspecific T-wave flattening but no acute ST or T-wave changes are noted. ASSESSMENT The patient has evidence probably for acute exacerbation of URI or COPD. Chest x-ray reveals no evidence for heart failure and there is no evidence to suggest acute infarct or ischemia at this point in time. PLAN We will get a follow-up troponin in view of her complaints of chest pain over the past two weeks and institute DuoNeb treatments. MD KIERSTEN Otto/LUIS /8:38 PM /7:57 AM
--- NOTE | 2016-11-03 08:17 | HHI.PR ---
Subjective Remarks feels better. hard of hearing. Objective Vitals heart lung improved air entry some rhonci bilaterally abd s/nt ext no edema Vital Signs Date Time Temp Pulse Resp B/P Pulse Ox O2 Delivery O2 Flow Rate FiO2 11/03/16 08:08 84 11/03/16 08:08 84 11/03/16 06:20 92 11/03/16 05:01 89 11/03/16 04:01 99.0 85 18 152/74 100 11/03/16 04:01 84 11/03/16 03:01 95 11/03/16 02:01 88 11/03/16 02:01 95 11/02/16 23:00 96 22 158/69 99 Nasal Cannula 11/02/16 22:14 98 Nasal Cannula 2.00 11/02/16 20:00 91 22 139/63 97 Nasal Cannula 2 11/02/16 19:37 100 Nasal Cannula 2 11/02/16 19:37 100 Nasal Cannula 2 11/02/16 19:32 100 Nasal Cannula 2 11/02/16 19:28 98.5 130 30 144/80 98 11/02/16 11/02/16 11/03/16 15:00 23:00 07:00 Intake Total 59 ml Balance 59 ml Intake Oral 0 ml IV Total 59 ml # Voids 2 # Bowel Movements 0 Result Diagram: 11/02/16194411/03/16 0440 Imaging Last 72 hours Impressions Chest X-Ray 11/02/161933 Signed Impressions: Service Date/Time: Wednesday, November 02, 2016 19:43 - CONCLUSION: No acute disease. No significant change has occurred. Alex White MD A/P Problem List: (1) Dyspnea Status: Acute Plan: Pt admitted for reactive airways and respiratory infection/bronchitis. There was concern for elevated troponin and lbbb in ED last night. cardiology was consulted echo pending bb given last night and ED started heparin await cardiology reccs. cont abx/nebs/steroids (2) Hypertension Status: Chronic Plan: cont current rx (3) Elevated troponin I level Status: Acute Plan: see above Problem Qualifiers (1) Dyspnea: Qualified Code: R06.00 - Dyspnea, unspecified type Sanford Vee MD Nov 03, 2016 08:17
[2016-11-03] MEDS ORDERED: [UNRECOGNIZED DRUG - OTHER] EACH EYE SCH (09:00)
[2016-11-03] MEDS ORDERED: NON-FORMULARY DRUG (Omeprazole 20 MG) PO SCH (09:00)
[2016-11-03] MEDS: ESCITALOPRAM OXALATE 10 MG TAB PO SCH (09:00)
[2016-11-03] MEDS: CARBOXYMETHYLCELLULOSE EACH EYE SCH (09:00)
[2016-11-03] MEDS: HYPROMELLOSE EACH EYE SCH (09:00)
[2016-11-03] MEDS: RESP: ALBUTEROL 2.5 MG/IPRATROPIUM 0.5 MG NEB (SCH) NEB ×3 (09:31→20:16)
[2016-11-03] MEDS: OXYBUTYNIN CHLORIDE 5 MG TAB PO SCH (09:32)
[2016-11-03] MEDS: PANTOPRAZOLE SOD 20 MG DELAYED RELEASE TAB PO SCH ×2 (09:32→21:02)
[2016-11-03] MEDS: GABAPENTIN 300 MG CAP PO SCH ×4 (09:32→21:03)
[2016-11-03] MEDS: methylPREDNISolone SOD SUCC 40 MG/1 ML VIAL IV PUSH SCH ×2 (09:32→21:02)
--- NOTE | 2016-11-03 10:06 | EKG ---
Date Performed: 11/02/2016 Time Performed: 20:14:30 PTAGE: 81 years EKG: Sinus rhythm NONSPECIFIC T-WAVE ABNORMALITY BORDERLINE ECG PREVIOUS TRACING : 11/02/2016 19.32 DOCTOR: Good Ramirez Interpretating Date/Time 11/03/2016 10:04:57
--- NOTE | 2016-11-03 10:08 | EKG ---
Date Performed: 11/02/2016 Time Performed: 19:32:10 PTAGE: 81 years EKG: SINUS TACHYCARDIA LEFT BUNDLE BRANCH BLOCK ABNORMAL ECG INTERPRETATION BASED ON A DEFAULT A GE OF 40 YEARS PREVIOUS TRACING : 11/02/2016 12.55 DOCTOR: Good Ramirez Interpretating Date/Time 11/03/2016 10:06:16
--- NOTE | 2016-11-03 10:46 | EC ---
Study Study Date:11/03/2016 STUDY CONCLUSIONS SUMMARY - Procedure narrative: Transthoracic echocardiography. Image quality was poor. Scanning was performed from the parasternal, apical, and subcostal acoustic windows. - Left ventricle: The cavity size was normal. Wall thickness was normal. Systolic function was normal. The estimated ejection fraction was in the range of 50% to 55%. Regional wall motion abnormalities cannot be excluded. - Mitral valve: Mild regurgitation. - Tricuspid valve: Mild regurgitation. - Pulmonary arteries: PA peak pressure: 45mm Hg (S). If LV function is below 40, please consider prescribing an ACEI or ARB or document rationale for non-use. PROCEDURE DATA STUDY STATUS: Elective. Procedure: Transthoracic echocardiography. Image quality was poor. Scanning was performed from the parasternal, apical, and subcostal acoustic windows. Study completion: The patient tolerated the procedure well. Transthoracic echocardiography. M-mode, complete 2D, complete spectral Doppler, and color Doppler. Weight: Weight: 142.7lb. Patient status: Inpatient. CARDIAC ANATOMY LEFT VENTRICLE: The cavity size was normal. Wall thickness was normal. Systolic function was normal. The estimated ejection fraction was in the range of 50% to 55%. Regional wall motion abnormalities cannot be excluded. AORTIC VALVE: Trileaflet; normal thickness leaflets. Doppler: Transvalvular velocity was within the normal range. There was no stenosis. No regurgitation. Valve area: 2.14cm^2 (Vmax). Peak gradient: 11mm Hg (S). AORTA: Aortic root: The aortic root was normal in size. MITRAL VALVE: Structurally normal valve. Doppler: Transvalvular velocity was within the normal range. There was no evidence for stenosis. Mild regurgitation. Peak gradient: 2mm Hg (D). LEFT ATRIUM: The atrium was normal in size. RIGHT VENTRICLE: The cavity size was normal. Wall thickness was normal. PULMONIC VALVE: Doppler: Transvalvular velocity was within the normal range. There was no evidence for stenosis. No regurgitation. TRICUSPID VALVE: Structurally normal valve. Doppler: Transvalvular velocity was within the normal range. Mild regurgitation. PULMONARY ARTERY: The main pulmonary artery was normal-sized. Systolic pressure was within the normal range. RIGHT ATRIUM: The atrium was normal in size. PERICARDIUM: There was no pericardial effusion. SYSTEMIC VEINS: Inferior vena cava: The vessel was normal in size. Patient weight: 142.7lb _Ejection fraction:_ 65-75% _Fractional shortening:_ 32% up to 5Kg 5-11.5Kg 11.6-22.9Kg 23-45Kg 45-57Kg Aortic Root 7-13 <17 13-22 17-27 17-27 LA diam 6-13 <23 24-38 33-47 37-40 RVID 10-17 7-15 7-15 7-18 8-17 LVIDd 12-22 <32 24-38 33-47 37-40 LVPW 2-4 3-6 5-7 6-8 7-8 IVS 2-4 3-6 5-7 6-8 7-8 BASIC MEASUREMENTS ADULT NORMAL Left ventricle LV internal dimension, ED, chordal level, *35.6 mm 43-52 PLAX LV internal dimension, ES, chordal level, 29.2 mm 23-38 PLAX Fractional shortening, chordal level, PLAX *18 % >29 LV posterior wall thickness, ED 11.2 mm IVS/LVPW ratio, ED 1.06 <1.3 Ventricular septum Septal thickness, ED 11.9 mm Aortic valve Leaflet separation 16 mm 15-26 BASIC MEASUREMENTS ADULT NORMAL Aortic valve Leaflet separation 16 mm 15-26 Aorta Root diameter, ED 27 mm 20-37 Left atrium Anterior-posterior dimension, ES 40 mm 19-40 LA/aortic root ratio 1.48 DOPPLER MEASUREMENTS ADULT NORMAL Main pulmonary artery Pressure, S *45 mm Hg =30 Aortic valve Peak velocity, S 167 cm/s Peak gradient, S 11 mm Hg Valve area, Vmax 2.14 cm^2 Mitral valve Peak E-wave velocity 78.4 cm/s Peak A-wave velocity 164 cm/s Deceleration time *141 ms 150-230 Peak gradient, D 2 mm Hg Peak E/A ratio 0.5 Maximal regurgitant velocity 251 cm/s Tricuspid valve Regurgitant peak velocity 262 cm/s Peak RV-RA gradient, S 27 mm Hg Maximal regurgitant velocity 262 cm/s Systemic veins Estimated CVP 10 mm Hg Right ventricle RV pressure, S *60 mm Hg <30 Pulmonic valve Peak velocity, S 194 cm/s LEGEND: Mean values are shown as u=mean value. Asterisk (*) ford values outside specified normal range. Amended [place] [id number]
[2016-11-03 12:44] LABS: APTT (PATIENT) 59.5 SEC (24.3-30.1)
--- NOTE | 2016-11-03 14:32 | PD.CARD.PN ---
Subjective Subjective Remarks Feels better. Breathing much improved. No chest pain Objective Vital Signs / I&O Vital Signs Date Time Temp Pulse Resp B/P Pulse Ox O2 Delivery O2 Flow Rate FiO2 11/03/16 13:17 99 11/03/16 12:14 97.0 92 18 112/70 97 11/03/16 12:13 90 11/03/16 11:08 106 11/03/16 10:34 106 11/03/16 09:59 98.0 85 18 118/74 98 11/03/16 09:37 98 21 11/03/16 09:19 84 11/03/16 08:08 84 11/03/16 08:08 84 11/03/16 06:20 92 11/03/16 05:01 89 11/03/16 04:01 99.0 85 18 152/74 100 11/03/16 04:01 84 11/03/16 03:01 95 11/03/16 02:01 88 11/03/16 02:01 95 11/02/16 23:00 96 22 158/69 99 Nasal Cannula 11/02/16 22:14 98 Nasal Cannula 2.00 11/02/16 20:00 91 22 139/63 97 Nasal Cannula 2 11/02/16 19:37 100 Nasal Cannula 2 11/02/16 19:37 100 Nasal Cannula 2 11/02/16 19:32 100 Nasal Cannula 2 11/02/16 19:28 98.5 130 30 144/80 98 I/O 11/02/16 11/02/16 11/02/16 11/03/16 11/03/16 11/03/16 07:00 15:00 23:00 07:00 15:00 23:00 Intake Total 59 ml Balance 59 ml Intake Oral 0 ml IV Total 59 ml # Voids 2 # Bowel Movements 0 Physical Exam Lungs clear RRR no murmur Laboratory Laboratory Tests Test 11/02/16 11/02/16 11/03/16 11/03/16 19:45 22:42 04:40 12:18 Prothrombin Time 11.5 SEC Prothromb Time International 1.0 RATIO Ratio Activated Partial 24.3 SEC 68.5 SEC 59.5 SEC Thromboplast Time Sodium Level 141 MEQ/L 140 MEQ/L Potassium Level 3.5 MEQ/L 3.8 MEQ/L Chloride Level 105 MEQ/L 106 MEQ/L Carbon Dioxide Level 26.4 MEQ/L 24.7 MEQ/L Anion Gap 10 MEQ/L 9 MEQ/L Blood Urea Nitrogen 7 MG/DL 8 MG/DL Creatinine 0.80 MG/DL 0.71 MG/DL Estimat Glomerular Filtration 83 ML/MIN 95 ML/MIN Rate Random Glucose 120 MG/DL 137 MG/DL Calcium Level 8.5 MG/DL 8.9 MG/DL Magnesium Level 2.0 MG/DL Total Creatine Kinase 56 U/L Troponin I 0.16 NG/ML 0.24 NG/ML 0.24 NG/ML 0.18 NG/ML B-Type Natriuretic Peptide 130 PG/ML White Blood Count 15.0 TH/MM3 Red Blood Count 4.19 MIL/MM3 Hemoglobin 12.7 GM/DL Hematocrit 39.4 % Mean Corpuscular Volume 93.9 FL Mean Corpuscular Hemoglobin 30.3 PG Mean Corpuscular Hemoglobin 32.2 % Concent Red Cell Distribution Width 14.2 % Platelet Count 288 TH/MM3 Mean Platelet Volume 10.0 FL Neutrophils (%) (Auto) 64.1 % Lymphocytes (%) (Auto) 26.6 % Monocytes (%) (Auto) 8.1 % Eosinophils (%) (Auto) 0.7 % Basophils (%) (Auto) 0.5 % Neutrophils # (Auto) 9.6 TH/MM3 Lymphocytes # (Auto) 4.0 TH/MM3 Monocytes # (Auto) 1.2 TH/MM3 Eosinophils # (Auto) 0.1 TH/MM3 Basophils # (Auto) 0.1 TH/MM3 CBC Comment DIFF FINAL Differential Comment Urine Color YELLOW Urine Turbidity HAZY Urine pH 6.0 Urine Specific [place] 1.013 Urine Protein 30 mg/dL Urine Glucose (UA) NEG mg/dL Urine Ketones NEG mg/dL Urine Occult Blood SMALL Urine Nitrite POS Urine Bilirubin NEG Urine Urobilinogen LESS THAN 2.0 MG/DL Urine Leukocyte Esterase LARGE Urine RBC 2 /hpf Urine WBC 97 /hpf Urine Squamous Epithelial 1 /hpf Cells Urine Bacteria RARE /hpf Urine Mucus FEW /lpf Microscopic Urinalysis Comment CULTURE INDICATED Total Bilirubin 0.2 MG/DL Aspartate Amino Transf 10 U/L (AST/SGOT) Alanine Aminotransferase 11 U/L (ALT/SGPT) Alkaline Phosphatase 100 U/L Total Protein 7.3 GM/DL Albumin 2.7 GM/DL Assessment and Plan Assessment and Plan Bronchospasm resolved. Troponin elevation likely demand mediated. Await echo and consider lexiscan in AM. LBB resolved- likely rate related Seferino Gusman MD Nov 03, 2016 14:32
--- NOTE | 2016-11-03 15:49 | PD.CONS ---
HPI History of Present Illness This is a 81 year old female with a hx of achalasia who came to the ER for evaluation of shortness of breath and was admitted for evaluation of dyspnea, elevated troponin I and hypertension. She is being followed by cardiology, who feels that her elevated troponin I is most likely demand mediated and have ordered a 2D echo and a lexiscan in the am. Of note, she was started on a Heparin Gtt. GI has been consulted for her dysphagia. She has a hx of achalasia and underwent EGD with botox injection (08/27/15)----> spastic distal esophagus/GE junction s/p Botox injection 100 units, 25 units in every quadrants , retroflexed views revealed no abnormalities. She and her daughter report that she did very well with this and has not had any further issues with swallowing up until 1.5-2 weeks ago, when solids seemed to start getting lodged in her upper esophagus. She tried drinking to push this down, but states she started bringing up a large amount of "foam." She has had more frequent symptoms of heartburn. She has continued her prilosec and tried Tums, Faye Rosalia, and Gas- x but has not had any improvement. She is not having any nausea, vomiting, abdominal pain, or bowel changes. She is hoping to be able to have the botox injections again during this hospitalization. (Haritha Saab) PFSH Past Medical History HTN Spinal stenosis GERD LVH SIL on CPAP at night Depression Chronic back pain Achalasia Past Surgical History ORIF of left arm fracture 04/27/15 Cholecystectomy BRIAN with BSO L3-5 laminectomy/microdiskectomy Cochlear implant EGD with botox injections (Haritha Saab) Coded Allergies: Cymbalta (Unverified Adverse Reaction, Severe, NAUSEA, 11/02/16) Sinemet 10/100 (Unverified Adverse Reaction, Severe, HYPERTENSIOIN, LETHARGY, 11/02/16) Medications Allergies Coded Allergies Type Severity Reaction Last Updated Verified Cymbalta Adverse Reaction Severe NAUSEA 11/02/16 No Sinemet 10/100 Adverse Reaction Severe HYPERTENSIOIN, LETHARGY 11/02/16 No Active Scripts Medications Dose Route/Sig Days Date Category Potassium Chloride CR (Potassium Chloride) 10 Meq Tab 10 Meq PO DAILY 11/02/16 Reported Oxycodone-Acetaminophen 5-325 mg Tab 1 Tab PO Q6H PRN 11/02/16 Reported Ditropan (Oxybutynin Chloride) 5 Mg Tab 5 Mg PO DAILY 11/02/16 Reported Omeprazole 20 Mg Tab 20 Mg PO BID 11/02/16 Reported Lisinopril 20 Mg Tab 20 Mg PO DAILY 11/02/16 Reported Gabapentin 600 Mg Tab 600 Mg PO QID 11/02/16 Reported Lasix (Furosemide) 20 Mg Tab 20 Mg PO DAILY 11/02/16 Reported Lexapro (Escitalopram Oxalate) 10 Mg Tab 10 Mg PO DAILY 11/02/16 Reported Clonidine (Clonidine HCl) 0.1 Mg Tab 0.1 Mg PO DAILY PRN 11/02/16 Reported Genteal Tears Opth Drops (Artificial Tears Opth Drops) 0.1-0.2-0.3% Soln 1 Drop EACH EYE DAILY 11/02/16 Reported Benzonatate 200 Mg Cap 200 Mg PO TID PRN 11/02/16 Rx Levaquin (Levofloxacin) 500 Mg Tab 500 Mg PO DAILY 7 11/02/16 Rx Family History Noncontributory Social History Denies alcohol, tobacco or illicit drugs (Haritha Saab) Review of Systems Constitutional: COMPLAINS OF: Fatigue, Weight loss (over the past few weeks, can't quantify) Respiratory: COMPLAINS OF: Shortness of breath, DENIES: Cough Cardiovascular: DENIES: Chest pain Gastrointestinal: COMPLAINS OF: Difficulty Swallowing, Odynophagia, Heartburn, DENIES: Abdominal pain, Black stools, Bloody stools, Constipation, Diarrhea, Nausea, Vomiting Hematologic/lymphatic: DENIES: Bruising Psychiatric: DENIES: Confusion (Haritha Saab) GI Exam Vitals I&O Vital Signs Date Time Temp Pulse Resp B/P Pulse Ox O2 Delivery O2 Flow Rate FiO2 11/03/16 14:39 90 11/03/16 13:17 99 11/03/16 12:14 97.0 92 18 112/70 97 11/03/16 12:13 90 11/03/16 11:08 106 11/03/16 10:34 106 11/03/16 09:59 98.0 85 18 118/74 98 11/03/16 09:37 98 21 11/03/16 09:19 84 11/03/16 08:08 84 11/03/16 08:08 84 11/03/16 06:20 92 11/03/16 05:01 89 11/03/16 04:01 99.0 85 18 152/74 100 11/03/16 04:01 84 11/03/16 03:01 95 11/03/16 02:01 88 11/03/16 02:01 95 11/02/16 23:00 96 22 158/69 99 Nasal Cannula 11/02/16 22:14 98 Nasal Cannula 2.00 11/02/16 20:00 91 22 139/63 97 Nasal Cannula 2 11/02/16 19:37 100 Nasal Cannula 2 11/02/16 19:37 100 Nasal Cannula 2 11/02/16 19:32 100 Nasal Cannula 2 11/02/16 19:28 98.5 130 30 144/80 98 I/O 11/02/16 11/02/16 11/02/16 11/03/16 11/03/16 11/03/16 07:00 15:00 23:00 07:00 15:00 23:00 Intake Total 59 ml Balance 59 ml Intake Oral 0 ml IV Total 59 ml # Voids 2 # Bowel Movements 0 Imaging Last Impressions Chest X-Ray 11/02/161933 Signed Impressions: Service Date/Time: Wednesday, November 02, 2016 19:43 - CONCLUSION: No acute disease. No significant change has occurred. Alex White MD Laboratory Test 11/02/16 11/02/16 11/03/16 11/03/16 19:45 22:42 04:40 12:18 Prothrombin Time 11.5 SEC Prothromb Time International 1.0 RATIO Ratio Activated Partial 24.3 SEC 68.5 SEC 59.5 SEC Thromboplast Time Sodium Level 141 MEQ/L 140 MEQ/L Potassium Level 3.5 MEQ/L 3.8 MEQ/L Chloride Level 105 MEQ/L 106 MEQ/L Carbon Dioxide Level 26.4 MEQ/L 24.7 MEQ/L Anion Gap 10 MEQ/L 9 MEQ/L Blood Urea Nitrogen 7 MG/DL 8 MG/DL Creatinine 0.80 MG/DL 0.71 MG/DL Estimat Glomerular Filtration 83 ML/MIN 95 ML/MIN Rate Random Glucose 120 MG/DL 137 MG/DL Calcium Level 8.5 MG/DL 8.9 MG/DL Magnesium Level 2.0 MG/DL Total Creatine Kinase 56 U/L Troponin I 0.16 NG/ML 0.24 NG/ML 0.24 NG/ML 0.18 NG/ML B-Type Natriuretic Peptide 130 PG/ML White Blood Count 15.0 TH/MM3 Red Blood Count 4.19 MIL/MM3 Hemoglobin 12.7 GM/DL Hematocrit 39.4 % Mean Corpuscular Volume 93.9 FL Mean Corpuscular Hemoglobin 30.3 PG Mean Corpuscular Hemoglobin 32.2 % Concent Red Cell Distribution Width 14.2 % Platelet Count 288 TH/MM3 Mean Platelet Volume 10.0 FL Neutrophils (%) (Auto) 64.1 % Lymphocytes (%) (Auto) 26.6 % Monocytes (%) (Auto) 8.1 % Eosinophils (%) (Auto) 0.7 % Basophils (%) (Auto) 0.5 % Neutrophils # (Auto) 9.6 TH/MM3 Lymphocytes # (Auto) 4.0 TH/MM3 Monocytes # (Auto) 1.2 TH/MM3 Eosinophils # (Auto) 0.1 TH/MM3 Basophils # (Auto) 0.1 TH/MM3 CBC Comment DIFF FINAL Differential Comment Urine Color YELLOW Urine Turbidity HAZY Urine pH 6.0 Urine Specific [place] 1.013 Urine Protein 30 mg/dL Urine Glucose (UA) NEG mg/dL Urine Ketones NEG mg/dL Urine Occult Blood SMALL Urine Nitrite POS Urine Bilirubin NEG Urine Urobilinogen LESS THAN 2.0 MG/DL Urine Leukocyte Esterase LARGE Urine RBC 2 /hpf Urine WBC 97 /hpf Urine Squamous Epithelial 1 /hpf Cells Urine Bacteria RARE /hpf Urine Mucus FEW /lpf Microscopic Urinalysis Comment CULTURE INDICATED Total Bilirubin 0.2 MG/DL Aspartate Amino Transf 10 U/L (AST/SGOT) Alanine Aminotransferase 11 U/L (ALT/SGPT) Alkaline Phosphatase 100 U/L Total Protein 7.3 GM/DL Albumin 2.7 GM/DL Date/Time Procedure Status Source Growth 11/02/16 19:45 Urine Culture - Preliminary Resulted Urine Clean Catch Gram Negative Te Physical Examination HEENT: Normocephalic; atraumatic; no jaundice. CHEST: CTA CARDIAC: Regular, mildly tachycardic 102 ABDOMEN: Soft, nondistended, nontender; no hepatosplenomegaly; bowel sounds are present in all four quadrants. EXTREMITIES: No clubbing, cyanosis, or edema. SKIN: Normal; no rash; no jaundice. [employer]ER: No focal deficits; alert and oriented times three. (Haritha Saab) Assessment and Plan Plan ASSESSMENT: - Dysphagia with hx of achalasia. 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 She and her daughter report that she did very well with this and has not had any further issues with swallowing up until 1.5- 2 weeks ago, when solids seemed to start getting lodged in her upper esophagus/bringing up foam/increased heartburn. No improvement with PPI, TUMS, Faye Rosalia, Gas x. She and her daughter would like to repeat the botox during this hospitalization if possible. Soft diet. PPI. - Elevated troponin. On heparin gtt. Cardiology, who feels that her elevated troponin I is most likely demand mediated and have ordered a 2D echo and a lexiscan in the am - Shortness of breath, improved. Per primary. PLAN: - Possible EGD with botox once cleared from cardiology standpoint. - Obtain consents - NPO after MN - PPI - Pt is scheduled for Lexiscan tomorrow am. If this is negative and the heparin gtt is stopped and she is cleared from cardiology standpoint, her EGD could possibly be done tomorrow. Otherwise we will need to wait until cleared by cardiology - Pt seen and examined by Dr. Madera and myself and this note is written on her behalf (Haritha Saab) Physician Comments seen, examined agree with above (Milena Madera MD) Haritha Saab Nov 03, 2016 15:49 Milena Madera MD Nov 03, 2016 16:10
[2016-11-03] MEDS: SODIUM CHLORIDE 0.9% FLUSH 5 ML FLUSH IVF PRN (21:03)
[2016-11-03] MEDS ORDERED: cefTRIAXone INJ 1,000 MG in SODIUM CHLORIDE 0.9% INJ 100 ML IV SCH (22:00)
[2016-11-04] VITALS (27 sets, daily range): BP systolic 168–205; BP diastolic 77–104; PULSE 90–136; RESP 16–20; TEMP 98.6–99.2; O2SAT 94–100
[2016-11-04] MEDS: HEPARIN-D5W INJ 250 ML IV SCH (02:39)
[2016-11-04] MEDS: oxyCODONE/ACETAMINOPHEN 5 MG/325 MG TAB PO SCH ×3 (04:19→08:59)
[2016-11-04] MEDS: RESP: ALBUTEROL 2.5 MG/IPRATROPIUM 0.5 MG NEB (PRN) NEB (04:45)
[2016-11-04 06:32] LABS: APTT (PATIENT) 46.6 SEC (24.3-30.1)
--- NOTE | 2016-11-04 07:50 | PD.CARD.PN ---
Subjective Subjective Remarks Had dysphagia last night. no chest pain. Breathing OK. Troponin flat Objective Vital Signs / I&O Vital Signs Date Time Temp Pulse Resp B/P Pulse Ox O2 Delivery O2 Flow Rate FiO2 11/04/16 07:40 98.8 113 18 185/91 100 11/04/16 07:30 113 11/04/16 06:00 114 11/04/16 05:00 110 11/04/16 04:45 100 11/04/16 04:18 98.7 11/04/16 04:09 98 18 168/79 94 11/04/16 04:00 95 11/04/16 03:00 94 11/04/16 02:02 94 169/77 11/04/16 02:00 98 11/04/16 01:53 99.0 98 16 172/79 98 11/04/16 01:00 112 11/04/16 00:00 99 11/03/16 23:00 102 11/03/16 22:00 112 11/03/16 21:00 118 11/03/16 20:54 98.9 112 14 142/62 98 11/03/16 20:00 96 11/03/16 19:00 102 11/03/16 18:42 103 11/03/16 17:15 95 11/03/16 16:22 97 11/03/16 15:43 98.0 94 18 120/74 98 11/03/16 15:39 94 11/03/16 15:39 94 11/03/16 14:39 90 11/03/16 13:17 99 11/03/16 12:14 97.0 92 18 112/70 97 11/03/16 12:13 90 11/03/16 11:08 106 11/03/16 10:34 106 11/03/16 09:59 98.0 85 18 118/74 98 11/03/16 09:37 98 21 11/03/16 09:19 84 11/03/16 08:08 84 11/03/16 08:08 84 I/O 11/03/16 11/03/16 11/03/16 11/04/16 11/04/16 11/04/16 07:00 15:00 23:00 07:00 15:00 23:00 Intake Total 59 ml 800 ml Balance 59 ml 800 ml Intake Oral 0 ml 720 ml IV Total 59 ml 80 ml # Voids 2 3 # Bowel Movements 0 Physical Exam Lungs clear RRR no murmur Laboratory Laboratory Tests Test 11/03/16 11/03/16 11/04/16 12:18 20:31 05:48 Activated Partial 59.5 SEC 46.6 SEC Thromboplast Time Troponin I 0.18 NG/ML 0.14 NG/ML Assessment and Plan Assessment and Plan Bronchospasm resolved. Troponin elevation likely demand mediated. Will get Seferino Santos MD Nov 04, 2016 07:50
[2016-11-04] MEDS: RESP: ALBUTEROL 2.5 MG/IPRATROPIUM 0.5 MG NEB (SCH) NEB ×3 (08:23→20:51)
--- NOTE | 2016-11-04 08:55 | HHI.PR ---
Subjective Remarks breathing better. c/o alot of phlegm in mouth and dysphagia. Objective Vitals heart reg lung diminished air entry abd s/nt ext no edema Vital Signs Date Time Temp Pulse Resp B/P Pulse Ox O2 Delivery O2 Flow Rate FiO2 11/04/16 08:24 98 21 11/04/16 08:20 110 11/04/16 07:40 98.8 113 18 185/91 100 11/04/16 07:30 113 11/04/16 06:00 114 11/04/16 05:00 110 11/04/16 04:45 100 11/04/16 04:18 98.7 11/04/16 04:09 98 18 168/79 94 11/04/16 04:00 95 11/04/16 03:00 94 11/04/16 02:02 94 169/77 11/04/16 02:00 98 11/04/16 01:53 99.0 98 16 172/79 98 11/04/16 01:00 112 11/04/16 00:00 99 11/03/16 23:00 102 11/03/16 22:00 112 11/03/16 21:00 118 11/03/16 20:54 98.9 112 14 142/62 98 11/03/16 20:00 96 11/03/16 19:00 102 11/03/16 18:42 103 11/03/16 17:15 95 11/03/16 16:22 97 11/03/16 15:43 98.0 94 18 120/74 98 11/03/16 15:39 94 11/03/16 15:39 94 11/03/16 14:39 90 11/03/16 13:17 99 11/03/16 12:14 97.0 92 18 112/70 97 11/03/16 12:13 90 11/03/16 11:08 106 11/03/16 10:34 106 11/03/16 09:59 98.0 85 18 118/74 98 11/03/16 09:37 98 21 11/03/16 09:19 84 11/03/16 11/03/16 11/04/16 15:00 23:00 07:00 Intake Total 800 ml Balance 800 ml Intake Oral 720 ml IV Total 80 ml # Voids 3 Result Diagram: 11/02/16 1945 11/03/16 0440 Imaging Last 72 hours Impressions Chest X-Ray 11/02/16 1934 Signed Impressions: Service Date/Time: Wednesday, November 02, 2016 19:43 - CONCLUSION: No acute disease. No significant change has occurred. Alex White MD A/P Problem List: (1) Dyspnea Status: Acute Plan: Pt admitted for reactive airways and respiratory infection/bronchitis. It is possible that her acute respiratory sx's may be aspiration related to her dysphagia and ?aspiration. There was concern for elevated troponin and lbbb in ED She also has chronic intermittent problems with esophageal stricture and dysphagia htn. bp elevated today. cardiology to do fermin today GI to do egd/dilation once cardiac testing completed cont abx/nebs/steroids..convert to po taper. family says at home she uses lisinipril/norvasc and prn clonidine for bp. check with ID for esbl klebsiella urine. (2) Hypertension Status: Chronic Plan: cont current rx (3) Elevated troponin I level Status: Acute Plan: see above Problem Qualifiers (1) Dyspnea: Qualified Code: R06.00 - Dyspnea, unspecified type Sanford Vee MD Nov 04, 2016 08:55
[2016-11-04] MEDS: GABAPENTIN 300 MG CAP PO SCH ×4 (08:57→21:00)
[2016-11-04] MEDS: ESCITALOPRAM OXALATE 10 MG TAB PO SCH (08:58)
[2016-11-04] MEDS: OXYBUTYNIN CHLORIDE 5 MG TAB PO SCH ×2 (08:59→09:00)
[2016-11-04] MEDS: PANTOPRAZOLE SOD 20 MG DELAYED RELEASE TAB PO SCH ×3 (08:59→21:00)
[2016-11-04] MEDS: SODIUM CHLORIDE 0.9% FLUSH 5 ML FLUSH IVF PRN (09:00)
[2016-11-04] MEDS: predniSONE 20 MG TAB PO SCH ×2 (09:00→21:00)
[2016-11-04] MEDS: LISINOPRIL 10 MG TAB PO SCH ×2 (09:00→21:00)
[2016-11-04] MEDS ORDERED: PNEUMOCOCCAL POLYVALENT INJ 25 MCG/0.5 ML SYR IM ONE (10:00)
[2016-11-04] MEDS: ENALAPRILAT 1.25 MG/ML VIAL IV PUSH PRN ×3 (10:08→21:00)
--- NOTE | 2016-11-04 10:55 | PD.CONS ---
History of Present Illness Service Infectious disease Consult Requested By Dr Adrián Meier Reason for Consult Evaluate patient with E coli ESBL+ UTI Primary Care Physician Rosendo oDugherty Diagnoses: History of Present Illness Patient seen and examined. Records reviewed. Patient is an 81-year-old female brought into the hospital for further evaluation of severe shortness of breath. Earlier on the day of admission she was brought into the hospital for shortness of breath. She had some wheezing and now significant breathing difficulty. Patient apparently has been having some cough and was given a prescription for Z-Chris which she completed. Her cough has been fairly dry. In the emergency room she was given Levaquin and she was discharged, but came back later that day with worsening symptoms. She had some nausea and vomiting prior to coming into the hospital. There is no fever or chills. On evaluation her chest x-ray was normal. She's afebrile. Her CBC was normal. Patient was seen by cardiology and has been undergoing cardiac workup. A urinalysis was done on admission it and it was abnormal. Urine culture is now reported as growing Escherichia coli ESBL positive. Patient has occasional urinary incontinence. She states she has some burning. No abdominal pain or any back pain. She's had previous episode of urinary tract infection. She has not had any urological evaluation. She is also haviong dyspagia and GI evaluating her. Patient has Hx of achalasia and has received botox injections in the past which helped her symptoms. Infectious disease consultations be requested to evaluate the patient. Review of Systems Constitutional: DENIES: Fever, Chills Eyes: DENIES: Eye pain Ears, nose, mouth, throat: DENIES: Nasal discharge, Oral lesions, Throat pain, Sinus Pain Respiratory: COMPLAINS OF: Cough, Wheezing, Shortness of breath Cardiovascular: DENIES: Chest pain, Syncope Gastrointestinal: COMPLAINS OF: Difficulty Swallowing, DENIES: Abdominal pain , Nausea, Vomiting Genitourinary: COMPLAINS OF: Urinary incontinence, Urgency, Dysuria Musculoskeletal: DENIES: Joint pain, Joint Swelling Integumentary: DENIES: Rash Neurologic: DENIES: Headache Psychiatric: DENIES: Confusion, Hallucinations Past Family Social History Allergies: Coded Allergies: Cymbalta (Unverified Adverse Reaction, Severe, NAUSEA, 11/02/16) Sinemet 10/100 (Unverified Adverse Reaction, Severe, HYPERTENSIOIN, LETHARGY, 3/20/17) Past Medical History HTN Spinal stenosis GERD LVH SIL on CPAP at night Depression Chronic back pain 2D echo (03/09/2011): - LV with mild concentric hypertrophy - EF 55-60% - Diastolic dysfunction - Mild thickening of the aortic valve leaflets and mitral valve leaflets Achalasia, previous botox injection Rx R meur fracture, and treatment Past Surgical History ORIF of left arm fracture 04/27/15 Cholecystectomy BRIAN with BSO L3-5 laminectomy/microdiskectomy Cochlear implant EGD with dilatation ORIF R femur fracture 07/2015 Active Ordered Medications Albuterol Rocephin Clonidine Vasotec Lexapro Neurontin Heparin Prinivil Ditropan Percocet Protonix Prednisone Social History Lives with daughter Walks using a walker No smoking No alcohol abuse No illicit drugs Physical Exam Vital Signs Vital Signs Date Time Temp Pulse Resp B/P Pulse Ox O2 Delivery O2 Flow Rate FiO2 11/04/16 09:17 136 11/04/16 08:24 98 21 11/04/16 08:20 110 11/04/16 07:40 98.8 113 18 185/91 100 11/04/16 07:30 113 11/04/16 06:00 114 11/04/16 05:00 110 11/04/16 04:45 100 11/04/16 04:18 98.7 11/04/16 04:09 98 18 168/79 94 11/04/16 04:00 95 11/04/16 03:00 94 11/04/16 02:02 94 169/77 11/04/16 02:00 98 11/04/16 01:53 99.0 98 16 172/79 98 11/04/16 01:00 112 11/04/16 00:00 99 11/03/16 23:00 102 11/03/16 22:00 112 11/03/16 21:00 118 11/03/16 20:54 98.9 112 14 142/62 98 11/03/16 20:00 96 11/03/16 19:00 102 11/03/16 18:42 103 11/03/16 17:15 95 11/03/16 16:22 97 11/03/16 15:43 98.0 94 18 120/74 98 11/03/16 15:39 94 11/03/16 15:39 94 11/03/16 14:39 90 11/03/16 13:17 99 11/03/16 12:14 97.0 92 18 112/70 97 11/03/16 12:13 90 11/03/16 11:08 106 Physical Exam GENERAL: This is a thin, frail looking, well-developed female, awake and alert, not in any distress. SKIN: Cool and dry. No generalized rash or ecchymoses HEAD: Atraumatic. Normocephalic. No temporal or scalp tenderness. EYES: Blyn conjunctiva. Pupils equal round and reactive. Extraocular motions intact. No scleral icterus. No injection or drainage. ENT: Nose without bleeding, or purulent drainage. Moist oral mucosa. Throat without erythema, or exudate. Uvula midline. Airway patent. NECK: Trachea midline. No JVD or lymphadenopathy. Supple, nontender, no meningeal signs. CARDIOVASCULAR: Regular rate and rhythm without murmurs, gallops, or rubs. RESPIRATORY: Clear to auscultation. Breath sounds equal bilaterally. No wheezes , rales, or rhonchi. GASTROINTESTINAL: Abdomen soft, nondistended. Has mild discomfort in suprapubic area. Bowel sounds are present and normoactive. No hepato- splenomegaly, or palpable masses. No guarding. MUSCULOSKELETAL: Extremities without clubbing, cyanosis, or edema. No joint tenderness, effusion, or edema noted. No calf tenderness. Negative Homans sign bilaterally. NEUROLOGICAL: Awake and alert. Cranial nerves II through XII intact. Five out of 5 muscle strength in all muscle groups. Normal speech. PSYCH: Calm and cooperative LINE: PIV with no evidence of infection Laboratory Laboratory Tests Test 11/03/16 11/03/16 11/04/16 12:18 20:31 05:48 Activated Partial 59.5 46.6 Thromboplast Time Troponin I 0.18 0.14 Date/Time Procedure Status Source Growth 11/02/16 19:45 Urine Culture - Final Complete Urine Clean Catch Klebsiella Pneumoniae Esbl Pos Result Diagram: 11/02/16194411/03/16 0440 Imaging RADIOLOGY STUDIES/FILMS REVIEWED Chest X-Ray 11/02/161933 Signed Impressions: Service Date/Time: Wednesday, November 02, 2016 19:43 - CONCLUSION: No acute disease. No significant change has occurred. Alex White MD Assessment and Plan Assessment and Plan IMPRESSION UTI with E coli ESBL + - ?not emptying bladder well SOB, CXR clear, due to COPD Hx achalasia, causing dysphagia RECOMMENDATION Straight cath to check volume and get urine specimen Will repeat UA and C/S before starting new Abx Stop Rocephin IV INvanz I will determine course of Abx icne repeat urine studies available I will follow along with you Thank you for this consultation Discussed Condition With D/W RN Explained plan to family members Amaya Goldberg MD Nov 04, 2016 10:55
[2016-11-04] MEDS ORDERED: ONABOTULINUMTOXINA INJ 100 UNITS/VIAL PRN (11:00)
[2016-11-04] MEDS ORDERED: REGADENOSON INJ 0.4 MG/5 ML SYR ONE (11:34)
--- NOTE | 2016-11-04 15:04 | RADRPT ---
EXAM DATE/TIME: 11/04/2016 11:59 [facility] COMPARISON: CT PULMONARY ANGIOGRAM, August 17, 2015, 17:04. LUNG VENTILATION & PERFUSION SCAN, October 04 5, 12:08. INDICATIONS : Anterior chest pain with dyspnea radiating to the right side. Coronary artery disease. DOSE: 27.1 mCi Tc99m Myoview at stress. 8.6 mCi Tc99m Myoview at rest. 0.4 mg Lexiscan STRESS SYMPTOMS: Dyspnea and Headache. EJECTION FRACTION: > 70% MEDICAL HISTORY : Hypertension. Hernia, hiatal. SURGICAL HISTORY : Hysterectomy. Cholecystectomy. ENCOUNTER: Initial ACUITY: 1 day PAIN SCALE: 4/10 LOCATION: chest TECHNIQUE: The patient underwent pharmacologic stress with infusion of prescribed dose. Continuous ECG tracing was monitored during stress. Gated SPECT imaging was performed after stress and conventional SPECT i maging was performed at rest. The examination was performed on a SPECT/CT scanner, both attenuation and non-corrected datasets were reviewed. FINDINGS: DISTRIBUTION: The maximum perfused segment at stress is in the septal wall. PERFUSION STUDY: The pattern of perfusion at stress is within normal limits. GATED STUDY: There is intact wall motion and thickening without hypokinetic or dyskinetic segments. CONCLUSION: 1. No reversible perfusion defect to suggest stress-induced myocardial ischemia. 2. Normal wall motion with normal ejection fraction. RISK CATEGORY: Low (<1% Annual Mortality Rate) Jh Ortiz MD on November 04, 2016 at 15:02 Board Certified Radiologist. This report was verified electronically.
[2016-11-04] MEDS ORDERED: ASP: Documented ESBL, MDR A baumannii or P. aeruginosa XX PRN (16:30)
[2016-11-04] MEDS ORDERED: MISCELLANEOUS PHARMACY INFORMATION XX PRN (16:30)
[2016-11-04] MEDS: MORPHINE SULFATE 4 MG/ML INJ IV PUSH PRN (16:36)
--- NOTE | 2016-11-04 16:39 | HHI.GIFU ---
GI Follow-up Note Consult Follow-up Subjective: Patient laying in bed comfortably,still having a lot of phlegm, lexiscan normal, still on heparin drip-cta pending Objective: PHYSICAL EXAMINATION: Vitals signs stable No fever Vital Signs Date Time Temp Pulse Resp B/P Pulse Ox O2 Delivery O2 Flow Rate FiO2 11/04/16 10:00 118 11/04/16 09:17 136 11/04/16 08:45 98.8 113 18 185/91 100 HEENT: Pupils round and reactive to light; normocephalic; atraumatic; no jaundice. Throat is clear. NECK: Neck is supple, no JVD, no lymphadenopathy. CHEST: Chest bilateral crackles CARDIAC: Regular rate and rhythm with no murmur gallop or rubs. ABDOMEN: Soft, nondistended, nontender; no hepatosplenomegaly; bowel sounds are present in all four quadrants. EXTREMITIES: No clubbing, cyanosis, or edema. SKIN: Normal; no rash; no jaundice. 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 Available Data (labs, X- Rays, Procedues) : Laboratory Tests Test 11/02/16 11/02/16 11/03/16 11/03/16 19:45 22:42 04:40 12:18 Prothrombin Time 11.5 SEC Prothromb Time International 1.0 RATIO Ratio Activated Partial 24.3 SEC 68.5 SEC 59.5 SEC Thromboplast Time Sodium Level 141 MEQ/L 140 MEQ/L Potassium Level 3.5 MEQ/L 3.8 MEQ/L Chloride Level 105 MEQ/L 106 MEQ/L Carbon Dioxide Level 26.4 MEQ/L 24.7 MEQ/L Anion Gap 10 MEQ/L 9 MEQ/L Blood Urea Nitrogen 7 MG/DL 8 MG/DL Creatinine 0.80 MG/DL 0.71 MG/DL Estimat Glomerular Filtration 83 ML/MIN 95 ML/MIN Rate Random Glucose 120 MG/DL 137 MG/DL Calcium Level 8.5 MG/DL 8.9 MG/DL Magnesium Level 2.0 MG/DL Total Creatine Kinase 56 U/L Troponin I 0.16 NG/ML 0.24 NG/ML 0.24 NG/ML 0.18 NG/ML B-Type Natriuretic Peptide 130 PG/ML White Blood Count 15.0 TH/MM3 Red Blood Count 4.19 MIL/MM3 Hemoglobin 12.7 GM/DL Hematocrit 39.4 % Mean Corpuscular Volume 93.9 FL Mean Corpuscular Hemoglobin 30.3 PG Mean Corpuscular Hemoglobin 32.2 % Concent Red Cell Distribution Width 14.2 % Platelet Count 288 TH/MM3 Mean Platelet Volume 10.0 FL Neutrophils (%) (Auto) 64.1 % Lymphocytes (%) (Auto) 26.6 % Monocytes (%) (Auto) 8.1 % Eosinophils (%) (Auto) 0.7 % Basophils (%) (Auto) 0.5 % Neutrophils # (Auto) 9.6 TH/MM3 Lymphocytes # (Auto) 4.0 TH/MM3 Monocytes # (Auto) 1.2 TH/MM3 Eosinophils # (Auto) 0.1 TH/MM3 Basophils # (Auto) 0.1 TH/MM3 CBC Comment DIFF FINAL Differential Comment Urine Color YELLOW Urine Turbidity HAZY Urine pH 6.0 Urine Specific [place] 1.013 Urine Protein 30 mg/dL Urine Glucose (UA) NEG mg/dL Urine Ketones NEG mg/dL Urine Occult Blood SMALL Urine Nitrite POS Urine Bilirubin NEG Urine Urobilinogen LESS THAN 2.0 MG/DL Urine Leukocyte Esterase LARGE Urine RBC 2 /hpf Urine WBC 97 /hpf Urine Squamous Epithelial 1 /hpf Cells Urine Bacteria RARE /hpf Urine Mucus FEW /lpf Microscopic Urinalysis Comment CULTURE INDICATED Total Bilirubin 0.2 MG/DL Aspartate Amino Transf 10 U/L (AST/SGOT) Alanine Aminotransferase 11 U/L (ALT/SGPT) Alkaline Phosphatase 100 U/L Total Protein 7.3 GM/DL Albumin 2.7 GM/DL Test 11/03/16 11/04/16 20:31 05:48 Troponin I 0.14 NG/ML Activated Partial 46.6 SEC Thromboplast Time ASSESSMENT/PLAN: dysphagia , patient has a history of achalasia responded well to botox elevated troponin-stress jon negative still on heparin drip, cta in progress Recommendations egd/dil with Botox in am if cleared by cardiology and medical team and off heparin drip discussed with family and patient provide suction catheter It was a pleasure seeing Radha Coronado. Thank you for this consult. Entered by: Milena Barrios MD Nov 04, 2016 16:39
[2016-11-04] MEDS: ERTAPENEM INJ 1,000 MG in SODIUM CHLORIDE 0.9% INJ 100 ML IV SCH (18:00)
[2016-11-04 18:15] LABS: BACTERIA, URINE OCC /hpf; BLOOD, URINE TRACE (NEG); GLUCOSE,URINE NEG (NEG); KETONE, URINE 10 mg/dL (NEG); MUCUS URINE FEW /lpf (OCC); NITRITE,URINE NEG (NEG); PH, URINE 6.5 (5.0-8.5); SQUAMOUS EPITHELIAL CELL URINE 1 /hpf (0-5); URINE COLOR YELLOW (YELLW/STRAW)
[2016-11-04 18:16] LABS: COMMENT (UR) CATH-CULTURE IND; CULTURE IF INDICATED CATH CULTURE IND
[2016-11-04] MEDS ORDERED: IOHEXOL 350 MG/ML 10 ML VIAL (for RAD DIAG) IV ONE (18:20)
--- NOTE | 2016-11-04 18:32 | RADRPT ---
EXAM DATE/TIME: 11/04/2016 17:47 [facility] COMPARISON: CT PULMONARY ANGIOGRAM, August 17, 2015, 17:04. INDICATIONS : Reactive airway disease,dysphagia. IV CONTRAST: 50 cc Omnipaque 350 (iohexol) IV RADIATION DOSE: 9.78 CTDIvol (mGy) MEDICAL HISTORY : Cardiovascular disease. Hypertension. SURGICAL HISTORY : Cholecystectomy. Hysterectomy. ENCOUNTER: Initial ACUITY: 1 day PAIN SCALE: 7/10 LOCATION: chest TECHNIQUE: Volumetric scanning of the chest was performed using a pulmonary embolism protocol MIP images were re constructed. Using automated exposure control and adjustment of the mA and/or kV according to patien t size, radiation dose was kept as low as reasonably achievable to obtain optimal diagnostic quality images. FINDINGS: The lungs are clear without infiltrate, nodule, or mass except for scattered areas of scarring in the lungs. There is no pleural effusion. No appreciable pathological adenopathy is seen within the med iastinum. The esophagus is slightly dilated with ingested material within it not changed. There is a small benign-appearing lymph node in the right hilum and not changed. There are simple cysts in the v isualized liver the largest in the left hepatic lobe measures 4.4 cm in size and present previously. There is no evidence for PE for technique. There are atherosclerotic calcifications of the aorta due to chronic atherosclerotic disease. CONCLUSION: Chronic changes, otherwise unremarkable. Jim Palumbo MD on November 04, 2016 at 18:27 Board Certified Radiologist. This report was verified electronically.
[2016-11-05] VITALS (24 sets, daily range): BP systolic 156–184; BP diastolic 74–89; PULSE 70–104; RESP 16–19; TEMP 98.2–99.1; O2SAT 97–100
[2016-11-05] MEDS: cloNIDine HCL 0.1 MG TAB PO PRN ×2 (00:26→14:54)
[2016-11-05] MEDS: ENALAPRILAT 1.25 MG/ML VIAL IV PUSH PRN (00:27)
[2016-11-05] MEDS: LABETALOL HCL 100 MG/20 ML VIAL IV PRN ×3 (02:51→11:27)
[2016-11-05] MEDS: oxyCODONE/ACETAMINOPHEN 5 MG/325 MG TAB PO SCH ×4 (06:00→17:17)
[2016-11-05 06:46] LABS: HEMATOCRIT 36.9 % (35.0-46.0); MEAN CELL VOLUME 92.5 FL (80.0-100.0); MEAN CORPUSCULAR HEMOGLOBIN 29.7 PG (27.0-34.0); MEAN CORPUSCULAR HGB CONC 32.1 % (32.0-36.0); PLATELET COUNT 253 TH/MM3 (150-450); RED BLOOD COUNT 3.99 MIL/MM3 (4.00-5.30); RED CELL DISTRIBUTION WIDTH 14.3 % (11.6-17.2); REVIEW FLAG FINAL
[2016-11-05 07:04] LABS: APTT (PATIENT) 21.9 SEC (24.3-30.1)
[2016-11-05 07:07] LABS: BICARBONATE 25.3 MEQ/L (21.0-32.0); POTASSIUM 3.8 MEQ/L (3.5-5.1)
--- NOTE | 2016-11-05 07:16 | PD.CARD.PN ---
Subjective Subjective Remarks Feels well. no chest pain or dyspnea. Lexiscan normal. CTA shows no evidence of PE Objective Vital Signs / I&O Vital Signs Date Time Temp Pulse Resp B/P Pulse Ox O2 Delivery O2 Flow Rate FiO2 11/05/16 06:30 95 11/05/16 05:00 86 11/05/16 04:00 81 11/05/16 03:00 98.7 95 16 164/89 100 11/05/16 03:00 94 11/05/16 02:00 88 11/05/16 01:00 104 11/05/16 00:00 90 11/04/16 23:00 96 11/04/16 23:00 98.9 111 18 205/104 98 11/04/16 20:55 97 21 11/04/16 20:00 90 11/04/16 19:00 94 11/04/16 19:00 99.2 96 18 182/86 96 11/04/16 17:00 114 11/04/16 16:00 110 11/04/16 15:15 98.6 110 20 186/84 100 11/04/16 15:00 102 11/04/16 10:00 118 11/04/16 09:17 136 11/04/16 08:45 98.8 113 18 185/91 100 11/04/16 08:24 98 21 11/04/16 08:20 110 11/04/16 07:40 98.8 113 18 185/91 100 11/04/16 07:30 113 I/O 11/04/16 11/04/16 11/04/16 11/05/16 11/05/16 11/05/16 07:00 15:00 23:00 07:00 15:00 23:00 Intake Total 240 ml 240 ml Balance 240 ml 240 ml Intake Oral 240 ml 240 ml # Voids 2 2 # Bowel Movements 0 0 Physical Exam Lungs clear RRR no murmur Laboratory Laboratory Tests Test 11/04/16 11/05/16 17:15 06:26 Urine Color YELLOW Urine Turbidity CLEAR Urine pH 6.5 Urine Specific [place] 1.014 Urine Protein TRACE mg/dL Urine Glucose (UA) NEG mg/dL Urine Ketones 10 mg/dL Urine Occult Blood TRACE Urine Nitrite NEG Urine Bilirubin NEG Urine Urobilinogen LESS THAN 2.0 MG/DL Urine Leukocyte Esterase LARGE Urine RBC 4 /hpf Urine WBC 16 /hpf Urine WBC Clumps OCC Urine Squamous Epithelial 1 /hpf Cells Urine Bacteria OCC /hpf Urine Mucus FEW /lpf Microscopic Urinalysis Comment CATH-CULTURE IND White Blood Count 23.0 TH/MM3 Red Blood Count 3.99 MIL/MM3 Hemoglobin 11.9 GM/DL Hematocrit 36.9 % Mean Corpuscular Volume 92.5 FL Mean Corpuscular Hemoglobin 29.7 PG Mean Corpuscular Hemoglobin 32.1 % Concent Red Cell Distribution Width 14.3 % Platelet Count 253 TH/MM3 Mean Platelet Volume 10.0 FL Activated Partial 21.9 SEC Thromboplast Time Sodium Level 141 MEQ/L Potassium Level 3.8 MEQ/L Chloride Level 107 MEQ/L Carbon Dioxide Level 25.3 MEQ/L Anion Gap 9 MEQ/L Blood Urea Nitrogen 14 MG/DL Creatinine 0.55 MG/DL Estimat Glomerular Filtration 128 ML/MIN Rate Random Glucose 99 MG/DL Calcium Level 9.2 MG/DL Assessment and Plan Assessment and Plan Bronchospasm resolved. Troponin elevation likely demand mediated. Stable CV. OK from my standpoint to D/C home. Seferino Gusman MD Nov 05, 2016 07:16
[2016-11-05] MEDS: RESP: ALBUTEROL 2.5 MG/IPRATROPIUM 0.5 MG NEB (SCH) NEB ×3 (08:12→19:54)
--- NOTE | 2016-11-05 08:19 | HHI.PR ---
Subjective Remarks still with swallowing problems described dysuria Objective Vitals heart reg lung diminished bs cheryle abd s/nt ext no edema Vital Signs Date Time Temp Pulse Resp B/P Pulse Ox O2 Delivery O2 Flow Rate FiO2 11/05/16 08:13 97 21 11/05/16 06:30 95 11/05/16 05:00 86 11/05/16 04:00 81 11/05/16 03:00 98.7 95 16 164/89 100 11/05/16 03:00 94 11/05/16 02:00 88 11/05/16 01:00 104 11/05/16 00:00 90 11/04/16 23:00 96 11/04/16 23:00 98.9 111 18 205/104 98 11/04/16 20:55 97 21 11/04/16 20:00 90 11/04/16 19:00 94 11/04/16 19:00 99.2 96 18 182/86 96 11/04/16 17:00 114 11/04/16 16:00 110 11/04/16 15:15 98.6 110 20 186/84 100 11/04/16 15:00 102 11/04/16 10:00 118 11/04/16 09:17 136 11/04/16 08:45 98.8 113 18 185/91 100 11/04/16 08:24 98 21 11/04/16 08:20 110 11/04/16 11/04/16 11/05/16 15:00 23:00 07:00 Intake Total 240 ml 240 ml Balance 240 ml 240 ml Intake Oral 240 ml 240 ml # Voids 2 2 # Bowel Movements 0 0 Result Diagram: 11/05/1662511/05/16625 Imaging Last 72 hours Impressions Chest X-Ray 11/02/161933 Signed Impressions: Service Date/Time: Wednesday, November 02, 2016 19:43 - CONCLUSION: No acute disease. No significant change has occurred. Alex White MD A/P Problem List: (1) Dyspnea Status: Acute Plan: Pt admitted for reactive airways and respiratory infection It is possible that her acute respiratory sx's may be aspiration related to her dysphagia and ?aspiration. There was concern for elevated troponin and lbbb in ED . lexiscan neg for ischemia. She also has chronic intermittent problems with esophageal stricture and dysphagia htn. bp elevated due to inability to take bp meds and pain. sinus tach related to acute respiratory illness and then nebs/pain esbl klebsella uti stop heparin. ok to proceed with egd today GI to do egd/dilation today cont abx/nebs/steroids..converted to po taper. family says at home she uses lisinipril/norvasc and prn clonidine for bp. ertapenem for esbl klebsiella uti (2) Dysphagia Status: Acute Plan: see above (3) Hypertension Status: Chronic Plan: cont current rx (4) Elevated troponin I level Status: Acute Plan: see above (5) UTI (urinary tract infection) Status: Acute Plan: see above Problem Qualifiers (1) Dyspnea: Qualified Code: R06.00 - Dyspnea, unspecified type Sanford Vee MD Nov 05, 2016 08:19
[2016-11-05] MEDS: MORPHINE SULFATE 4 MG/ML INJ IV PUSH PRN ×3 (08:50→14:54)
[2016-11-05] MEDS: SODIUM CHLORIDE 0.9% FLUSH 5 ML FLUSH IVF PRN (08:50)
[2016-11-05] MEDS: predniSONE 20 MG TAB PO SCH ×2 (08:51→20:57)
[2016-11-05] MEDS: HYPROMELLOSE EACH EYE SCH (08:51)
[2016-11-05] MEDS: CARBOXYMETHYLCELLULOSE EACH EYE SCH (08:51)
[2016-11-05] MEDS: ESCITALOPRAM OXALATE 10 MG TAB PO SCH (08:51)
[2016-11-05] MEDS: LISINOPRIL 10 MG TAB PO SCH ×2 (08:51→20:56)
[2016-11-05] MEDS: GABAPENTIN 300 MG CAP PO SCH ×4 (08:51→20:56)
[2016-11-05] MEDS: PANTOPRAZOLE SOD 20 MG DELAYED RELEASE TAB PO SCH ×2 (08:51→20:56)
[2016-11-05] MEDS: OXYBUTYNIN CHLORIDE 5 MG TAB PO SCH (08:51)
[2016-11-05] MEDS ORDERED: PROPOFOL 200 MG/20 ML AMP IV ONE (12:56)
--- NOTE | 2016-11-05 13:17 | GIPROC ---
[facility] [address] [place] [address] EGD WITH DILATION PROCEDURE REPORT EXAM DATE: 11/05/2016 PATIENT NAME: Radha Coronado MR#: [id number] BIRTHDATE: 1935 ATTENDING: Milena Madera MD ORDER #: [id number] INTERNAL COMBUSTION ENGINEER: Theresa Cannon RN STATUS: inpatient INDICATIONS: The patient is a 81 yr old female here for an EGD with dilation due to achalasia dysphagia PROCEDURE PERFORMED: EGD w/ biopsy EGD w/ dilation of esophagus via guidewire EGD w/ directed submucosal injection(s), any substance MEDICATIONS: None and Per Anesthesia. TOPICAL ANESTHETIC: none CONSENT: The patient understands the risks and benefits of the procedure and understands that these risks include, but are not limited to: sedation, allergic reaction, infection, perforation and/or bleeding. Alternative means of evaluation and treatment include, among others: physical exam, x-rays, and/or surgical intervention. The patient elects to proceed with this endoscopic procedure. medical equipment was checked for proper function. Hand hygiene and appropriate measures for infection prevention was taken. After the risks, benefits and alternatives of the procedure were thoroughly explained, Informed consent was verified, confirmed and timeout was successfully executed by the treatment team. The patient was anesthetized with topical anesthesia and the Pentax [id number] endoscope was introduced through the mouth and advanced to the second portion of the duodenum. The instrument was slowly withdrawn as the mucosa was fully examined. Gastrtis antrum-biopsy esophagitis distal esophagus-biopsy white deposits in esophagus-retained food and jr white deposits in mouth BOTOX injected in diatal esophagus-100 units-25 units in each quadrant. Dilation was performed at gastroesophageal junction. DILATOR: SIZE(S): RESISTANCE: HEME: APPEARANCE: Dilator: Savary over guidewire Size(s): 16 COMMENT: Retroflexed views revealed a hiatal hernia ADVERSE EVENTS: There were no complications. IMPRESSIONS: 1. Gastrtis antrum-biopsy esophagitis distal esophagus-biopsy white deposits in esophagus-retained food and jr white deposits in mouth BOTOX injected in diatal esophagus-100 units-25 units in each quadrant 2. Retroflexed views revealed a hiatal hernia RECOMMENDATIONS: 1. Await biopsy results. Biopsy results will not be ready for 7-10 days. If you don't hear from us in two weeks, call our office for biopsy results. 2. Anti-reflux regimen 3. Continue PPI 4. Dilatations PRN REPEAT EXAM: EGD pending biopsy results Milena Madera MD eSigned: Milena Madera MD 11/05/2016 1:17 PM cc: PATIENT NAME: Radha Coronado MR#: [id number]
[2016-11-05] MEDS: FLUCONAZOLE 100 MG PREMIX BAG 50 ML IV SCH (14:54)
[2016-11-05] MEDS: ERTAPENEM INJ 1,000 MG in SODIUM CHLORIDE 0.9% INJ 100 ML IV SCH (17:17)
[2016-11-06] VITALS (21 sets, daily range): BP systolic 128–206; BP diastolic 70–95; PULSE 64–98; RESP 16–18; TEMP 97.7–99.6; O2SAT 96–99
[2016-11-06] MEDS: LABETALOL HCL 100 MG/20 ML VIAL IV PRN ×2 (00:40→11:52)
[2016-11-06] MEDS: SODIUM CHLORIDE 0.9% FLUSH 5 ML FLUSH IVF PRN ×2 (00:43→08:58)
[2016-11-06] MEDS: MORPHINE SULFATE 4 MG/ML INJ IV PUSH PRN ×3 (00:44→11:51)
[2016-11-06] MEDS: oxyCODONE/ACETAMINOPHEN 5 MG/325 MG TAB PO SCH ×6 (06:00→19:46)
[2016-11-06] MEDS: RESP: ALBUTEROL 2.5 MG/IPRATROPIUM 0.5 MG NEB (SCH) NEB (08:17)
[2016-11-06] MEDS: HYPROMELLOSE EACH EYE SCH (08:53)
[2016-11-06] MEDS: CARBOXYMETHYLCELLULOSE EACH EYE SCH (08:53)
[2016-11-06] MEDS: GABAPENTIN 300 MG CAP PO SCH ×4 (08:58→19:45)
[2016-11-06] MEDS: PANTOPRAZOLE SOD 20 MG DELAYED RELEASE TAB PO SCH ×2 (08:58→19:45)
[2016-11-06] MEDS: OXYBUTYNIN CHLORIDE 5 MG TAB PO SCH (08:58)
[2016-11-06] MEDS: LISINOPRIL 10 MG TAB PO SCH (08:58)
[2016-11-06] MEDS ORDERED: predniSONE 10 MG TAB PO SCH (09:00)
[2016-11-06] MEDS ORDERED: amLODIPine BESYLATE 5 MG TAB PO SCH (09:00)
--- NOTE | 2016-11-06 09:13 | HHI.PR ---
Subjective Remarks seems better. Objective Vitals nad oriented heart reg lung diminished bs abd s/nt ext no edema oral thrush. Vital Signs Date Time Temp Pulse Resp B/P Pulse Ox O2 Delivery O2 Flow Rate FiO2 11/06/16 09:07 18 11/06/16 06:00 67 11/06/16 05:00 68 11/06/16 04:00 66 11/06/16 04:00 99.3 68 18 163/71 99 11/06/16 03:35 64 11/06/16 02:55 64 11/06/16 02:39 99.2 85 18 191/89 99 11/06/16 01:00 73 11/06/16 00:00 64 11/05/16 23:00 91 11/05/16 23:00 72 11/05/16 20:00 82 11/05/16 20:00 99.1 86 18 156/89 99 11/05/16 19:54 99 21 11/05/16 19:00 82 11/05/16 18:19 16 11/05/16 18:00 88 11/05/16 17:00 70 11/05/16 16:00 79 11/05/16 16:00 98.2 79 16 163/74 97 11/05/16 15:00 84 11/05/16 14:00 75 11/05/16 13:30 88 16 173/78 98 11/05/16 13:30 89 11/05/16 13:20 87 16 157/81 99 11/05/16 13:10 98.9 95 16 142/76 100 11/05/16 12:00 88 11/05/16 12:00 98.3 87 16 173/80 99 11/05/16 11:00 86 11/05/16 10:00 88 11/05/16 11/05/16 11/06/16 15:00 23:00 07:00 Intake Total 100 ml 260 ml 150 ml Balance 100 ml 260 ml 150 ml Intake Oral 60 ml 150 ml IV Total 200 ml 0 ml Other 100 ml # Voids 4 2 # Bowel Movements 0 1 Result Diagram: 11/05/1662511/05/16625 Imaging Last 72 hours Impressions Chest X-Ray 11/02/16 1934 Signed Impressions: Service Date/Time: Wednesday, November 02, 2016 19:43 - CONCLUSION: No acute disease. No significant change has occurred. Alex White MD A/P Problem List: (1) Dyspnea Status: Acute Plan: Pt admitted for reactive airways and respiratory infection It is possible that her acute respiratory sx's may be aspiration related to her dysphagia and ?aspiration. There was concern for elevated troponin and lbbb in ED . lexiscan neg for ischemia. She also has chronic intermittent problems with esophageal stricture and dysphagia egd 11/05 shows oral/esophageal jr. botox injected distally. htn. bp elevated due to inability to take bp meds and pain. sinus tach related to acute respiratory illness and then nebs/pain esbl klebsella uti cont nebs. taper steroids quickly abx for uti diflucan for jr titrate bp meds back up advance diet as tolerated PT eval will plan for hhc/pt (2) Dysphagia Status: Acute Plan: see above (3) Hypertension Status: Chronic Plan: cont current rx (4) Elevated troponin I level Status: Acute Plan: see above (5) UTI (urinary tract infection) Status: Acute Plan: see above Problem Qualifiers (1) Dyspnea: Qualified Code: R06.00 - Dyspnea, unspecified type Sanford Vee MD Nov 06, 2016 09:12
--- NOTE | 2016-11-06 10:36 | HHI.IDPN ---
Subjective Subjective Remarks Notes reviewed Temps ok Had EGD and botox injection to distal esophagus Findings of jr esophagitis On Diflucan now Repeat UA with pyuria but UC negative - specimen was before patient got Invanz; was on Rocephin before Antibiotics Invanz Lines PIV Past Medical History HTN Spinal stenosis GERD LVH SIL on CPAP at night Depression Chronic back pain 2D echo (03/09/2011): - LV with mild concentric hypertrophy - EF 55-60% - Diastolic dysfunction - Mild thickening of the aortic valve leaflets and mitral valve leaflets Achalasia, previous botox injection Rx R meur fracture, and treatment Past Surgical History ORIF of left arm fracture 04/27/15 Cholecystectomy BRIAN with BSO L3-5 laminectomy/microdiskectomy Cochlear implant EGD with dilatation ORIF R femur fracture 07/2015 Allergies: Coded Allergies: Cymbalta (Unverified Adverse Reaction, Severe, NAUSEA, 11/02/16) Sinemet 10/100 (Unverified Adverse Reaction, Severe, HYPERTENSIOIN, LETHARGY, 11/02/16) *MDRO Multi-Drug Resistant Organism (Verified Adverse Reaction, Unknown, ) ESBL k.Pneumoniae (urine)-11/02/16 Objective . Vital Signs Date Time Temp Pulse Resp B/P Pulse Ox O2 Delivery O2 Flow Rate FiO2 11/06/16 09:07 18 11/06/16 08:00 98.5 83 16 206/95 99 11/06/16 08:00 80 11/06/16 06:00 67 11/06/16 05:00 68 11/06/16 04:00 66 11/06/16 04:00 99.3 68 18 163/71 99 11/06/16 03:35 64 11/06/16 02:55 64 11/06/16 02:39 99.2 85 18 191/89 99 11/06/16 01:00 73 11/06/16 00:00 64 11/05/16 23:00 91 11/05/16 23:00 72 11/05/16 20:00 82 11/05/16 20:00 99.1 86 18 156/89 99 11/05/16 19:54 99 21 11/05/16 19:00 82 11/05/16 18:19 16 11/05/16 18:00 88 11/05/16 17:00 70 11/05/16 16:00 79 11/05/16 16:00 98.2 79 16 163/74 97 11/05/16 15:00 84 11/05/16 14:00 75 11/05/16 13:30 88 16 173/78 98 11/05/16 13:30 89 11/05/16 13:20 87 16 157/81 99 11/05/16 13:10 98.9 95 16 142/76 100 11/05/16 12:00 88 11/05/16 12:00 98.3 87 16 173/80 99 11/05/16 11:00 86 11/05/16 11/05/16 11/06/16 15:00 23:00 07:00 Intake Total 100 ml 260 ml 150 ml Balance 100 ml 260 ml 150 ml Intake Oral 60 ml 150 ml IV Total 200 ml 0 ml Other 100 ml # Voids 4 2 # Bowel Movements 0 1 . Laboratory Tests Test 11/05/16 06:26 White Blood Count 23.0 TH/MM3 Red Blood Count 3.99 MIL/MM3 Hemoglobin 11.9 GM/DL Hematocrit 36.9 % Mean Corpuscular Volume 92.5 FL Mean Corpuscular Hemoglobin 29.7 PG Mean Corpuscular Hemoglobin 32.1 % Concent Red Cell Distribution Width 14.3 % Platelet Count 253 TH/MM3 Mean Platelet Volume 10.0 FL Laboratory Tests Test 11/05/16 06:26 Sodium Level 141 MEQ/L Potassium Level 3.8 MEQ/L Chloride Level 107 MEQ/L Carbon Dioxide Level 25.3 MEQ/L Anion Gap 9 MEQ/L Blood Urea Nitrogen 14 MG/DL Creatinine 0.55 MG/DL Estimat Glomerular Filtration 128 ML/MIN Rate Random Glucose 99 MG/DL Calcium Level 9.2 MG/DL Microbiology Date/Time Procedure Status Source Growth 11/04/16 17:15 Urine Culture - Final Complete Urine Catheterized Urine NO GROWTH IN 48 HOURS. Imaging Myocardial Perfusion Scan Nuc Med 11/04/16 0000 Signed Impressions: Service Date/Time: Friday, November 04, 2016 11:59 - CONCLUSION: 1. No reversible perfusion defect to suggest stress-induced myocardial ischemia. 2. Normal wall motion with normal ejection fraction. RISK CATEGORY: Low (<1% % Annual Mortality Rate) Jh Ortiz MD CT Angiography 11/04/16 0000 Signed Impressions: Service Date/Time: Friday, November 04, 2016 17:47 - CONCLUSION: Chronic changes, otherwise unremarkable. Jim Palumbo MD Chest X-Ray 11/02/16 1934 Signed Impressions: Service Date/Time: Wednesday, November 02, 2016 19:43 - CONCLUSION: No acute disease. No significant change has occurred. Alex White MD Physical Exam GENERAL: This is a thin, frail looking female, awake and alert, not in any distress. SKIN: Cool and dry. No generalized rash or ecchymoses HEENT: [place] conjunctiva. No scleral icterus. No injection or drainage. Moist oral mucosa. Throat without erythema, or exudate NECK: Trachea midline. No JVD or lymphadenopathy. Supple, nontender, no meningeal signs. CARDIOVASCULAR: Regular rate and rhythm without murmurs, gallops, or rubs. RESPIRATORY: Clear to auscultation. Breath sounds equal bilaterally. No wheezes , rales, or rhonchi. GASTROINTESTINAL: Abdomen soft, nondistended. Not tender. Bowel sounds are present and normoactive. No hepato-splenomegaly, or palpable masses. No guarding. MUSCULOSKELETAL: Extremities without clubbing, cyanosis, or edema. No joint tenderness, effusion, or edema noted. No calf tenderness. Negative Homans sign bilaterally. NEUROLOGICAL: Non-focal. PSYCH: Calm and cooperative LINE: PIV with no evidence of infection Assessment & Plan Remarks IMPRESSION UTI with E coli ESBL + - ?not emptying bladder well - repeat UC negative before Invanz was started SOB, CXR clear, due to COPD Hx achalasia, causing dysphagia Jr esophagitis Leukocytosis, ? RECOMMENDATION Reorder bladder scan - check PVR - D/W RN Will use Cipro to complete Rx of UTI Stop Invanz Plan 10 days Cipro On Diflucan per GI Follow CBC Amaya Goldberg MD Nov 06, 2016 10:36
[2016-11-06] MEDS: CIPROFLOXACIN 500 MG TAB PO SCH ×2 (10:45→19:45)
[2016-11-06] MEDS ORDERED: DEXT 5%-NACL 0.9% 1000 ML INJ 1,000 ML IV ONE (13:30)
[2016-11-06] MEDS: cloNIDine HCL 0.2 MG/24 HR PATCH TD SCH (14:55)
[2016-11-06] MEDS: FLUCONAZOLE 100 MG PREMIX BAG 50 ML IV SCH (14:55)
--- NOTE | 2016-11-06 15:38 | RADRPT ---
EXAM DATE/TIME: 11/06/2016 00:00 [facility] COMPARISON: BA SWALLOW W/SPEECH PATHOLOGY, August 26, 2015, 0:00. INDICATIONS : Dysphagia. FLUORO TIME: 1.6 minutes IMAGE COUNT: 0 CONTRAST: Dose as prescribed by speech pathologist. MEDICAL HISTORY : Hypertension. Hernia, hiatal. SURGICAL HISTORY : Hysterectomy. Cholecystectomy ENCOUNTER: Subsequent ACUITY: 4 - 6 days PAIN SCORE: 0/10 LOCATION: esophagus FINDINGS: A modified barium swallow was performed with speech pathology. Patient was given a variety of liquids to swallow. Patient showed immediate laryngeal penetration and gema aspiration with both the liquid and honey th ick barium contrast. For a full detailed report, see report by the speech pathologist. CONCLUSION: Aspiration with both liquid and honey thick barium contrast consistencies Philip Chaney MD on November 06, 2016 at 15:35 Board Certified Radiologist. This report was verified electronically.
--- NOTE | 2016-11-06 16:26 | HHI.GIFU ---
Subjective Remarks Resting in bed. States she is still having issues swallowing. She states she feels like food is not going down. According to nurse, she failed MBS and was made NPO. (Haritha Saab) Objective Vitals I&O Vital Signs Date Time Temp Pulse Resp B/P Pulse Ox O2 Delivery O2 Flow Rate FiO2 11/06/16 15:00 80 11/06/16 14:00 84 11/06/16 13:00 72 11/06/16 12:00 98.9 80 16 172/85 96 11/06/16 12:00 80 11/06/16 11:59 16 11/06/16 11:00 98 11/06/16 09:00 80 11/06/16 08:00 98.5 83 16 206/95 99 11/06/16 08:00 80 11/06/16 07:00 80 11/06/16 06:00 67 11/06/16 05:00 68 11/06/16 04:00 66 11/06/16 04:00 99.3 68 18 163/71 99 11/06/16 03:35 64 11/06/16 02:55 64 11/06/16 02:39 99.2 85 18 191/89 99 11/06/16 01:00 73 11/06/16 00:00 64 11/05/16 23:00 91 11/05/16 23:00 72 11/05/16 20:00 82 11/05/16 20:00 99.1 86 18 156/89 99 11/05/16 19:54 99 21 11/05/16 19:00 82 11/05/16 18:19 16 11/05/16 18:00 88 11/05/16 17:00 70 I/O 11/05/16 11/05/16 11/05/16 11/06/16 11/06/16 11/06/16 07:00 15:00 23:00 07:00 15:00 23:00 Intake Total 240 ml 100 ml 260 ml 150 ml Balance 240 ml 100 ml 260 ml 150 ml Intake Oral 240 ml 60 ml 150 ml IV Total 200 ml 0 ml Other 100 ml Bladder Scan Volume Amount 147 ml # Voids 2 4 2 # Bowel Movements 0 0 1 Laboratory Date/Time Procedure Status Source Growth 11/04/16 17:15 Urine Culture - Final Complete Urine Catheterized Urine NO GROWTH IN 48 HOURS. Imaging Last Impressions Modified Barium Swallow 11/06/16 0000 Signed Impressions: Service Date/Time: Sunday, November 06, 2016 00:00 - CONCLUSION: Aspiration with both liquid and honey thick barium contrast consistencies Philip Chaney MD Myocardial Perfusion Scan [facility] 11/04/16 0000 Signed Impressions: Service Date/Time: Friday, November 04, 2016 11:59 - CONCLUSION: 1. No reversible perfusion defect to suggest stress-induced myocardial ischemia. 2. Normal wall motion with normal ejection fraction. RISK CATEGORY: Low (<1% % Annual Mortality Rate) Jh Ortiz MD CT Angiography 11/04/16 0000 Signed Impressions: Service Date/Time: Friday, November 04, 2016 17:47 - CONCLUSION: Chronic changes, otherwise unremarkable. Jim Palumbo MD Chest X-Ray 11/02/16 193 Signed Impressions: Service Date/Time: Wednesday, November 02, 2016 19:43 - CONCLUSION: No acute disease. No significant change has occurred. Alex White MD Physical Exam HEENT: Normocephalic; atraumatic; no jaundice. CHEST: CTA CARDIAC: Regular ABDOMEN: Soft, nondistended, nontender; no hepatosplenomegaly; bowel sounds are present in all four quadrants. EXTREMITIES: No clubbing, cyanosis, or edema. SKIN: Normal; no rash; no jaundice. 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 (Haritha Saab [facility]) Assessment and Plan Plan ASSESSMENT: - Dysphagia with hx of achalasia. 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 She and her daughter report that she did very well with this and has not had any further issues with swallowing up until 1.5- 2 weeks ago, when solids seemed to start getting lodged in her upper esophagus/bringing up foam/increased heartburn. No improvement with PPI, TUMS, Faye [place], Gas x. S/P EGD with dilatation, botox injections (11/05/16)----> 1. Gastritis antrum-biopsy, esophagitis distal esophagus- biopsy, white deposits in esophagus-retained food and jr, white deposits in mouth BOTOX injected in diatal esophagus-100 units-25 units in each quadrant, 2. Retroflexed views revealed a hiatal hernia. S/P MBS (11/06/16)---> gema aspiration for all consistencies presented, a chin tuck did not eliminate aspiration. Recommended NPO with consideration for bypass feedings. Soft diet. PPI. - Elevated troponin. On heparin gtt. Cardiology, who feels that her elevated troponin I is most likely demand mediated and have ordered a 2D echo and a lexiscan in the am - Shortness of breath, improved. Per primary. PLAN: - NPO - PPI - ST - ? Need for PEG tube, will see how she does over the weekend with ST - Further recommendations to follow based on results of above - Pt seen and examined by Dr. Madera and myself and this note is written on her behalf (Haritha Saab) Physician Comments seen, examined agree with above (Milena Madera MD) Haritha Saab Nov 06, 2016 16:26 Milena Madera MD Nov 06, 2016 16:42
[2016-11-07] VITALS (17 sets, daily range): BP systolic 158–200; BP diastolic 66–98; PULSE 76–100; RESP 16–18; TEMP 98.2–99.5; O2SAT 99–100
[2016-11-07] MEDS: LABETALOL HCL 100 MG/20 ML VIAL IV PRN (00:15)
[2016-11-07 06:04] LABS: AUTOMATED NEUTROPHIL # 8.5 TH/MM3 (1.8-7.7); BASOPHIL % 0.2 % (0.0-2.0); EOSINOPHIL # 0.1 TH/MM3 (0-0.4); EOSINOPHIL % 0.6 % (0.0-4.0); HEMATOCRIT 38.9 % (35.0-46.0); LYMPH % 17.4 % (9.0-44.0); LYMPHOCYTE # 2.1 TH/MM3 (1.0-4.8); MEAN CELL VOLUME 92.9 FL (80.0-100.0); MEAN CORPUSCULAR HEMOGLOBIN 29.9 PG (27.0-34.0); MEAN CORPUSCULAR HGB CONC 32.2 % (32.0-36.0); MONO % 10.2 % (0.0-8.0); NEUT % 71.6 % (16.0-70.0); PLATELET COUNT 194 TH/MM3 (150-450); RED BLOOD COUNT 4.19 MIL/MM3 (4.00-5.30); RED CELL DISTRIBUTION WIDTH 14.1 % (11.6-17.2); WHITE BLOOD COUNT 11.9 TH/MM3 (4.0-11.0)
[2016-11-07 06:07] LABS: HEMO FLAGS AUTO DIFF
[2016-11-07] MEDS: CIPROFLOXACIN 200 MG PREMIX 100 ML IV SCH ×2 (08:00→20:20)
[2016-11-07] MEDS ORDERED: hydrALAZINE HCL 20 MG/ML VIAL IV PUSH ONE (08:00)
--- NOTE | 2016-11-07 08:00 | HHI.PR ---
Subjective Remarks painful swallowing Objective Vitals heart reg lung diminished bs abd s/nt ext no edema Vital Signs Date Time Temp Pulse Resp B/P Pulse Ox O2 Delivery O2 Flow Rate FiO2 11/07/16 04:00 99.5 76 16 195/88 99 11/07/16 04:00 76 11/07/16 00:08 98.9 80 16 193/88 99 11/07/16 00:00 80 11/06/16 20:00 87 11/06/16 19:20 99.6 87 16 190/88 99 11/06/16 18:00 80 11/06/16 17:00 80 11/06/16 16:00 84 11/06/16 16:00 98.8 78 16 165/86 97 11/06/16 15:00 80 11/06/16 14:00 84 11/06/16 13:00 72 11/06/16 12:00 98.9 80 16 172/85 96 11/06/16 12:00 80 11/06/16 11:59 16 11/06/16 11:00 98 11/06/16 09:00 80 11/06/16 08:00 98.5 83 16 206/95 99 11/06/16 08:00 80 11/06/16 11/06/16 11/07/16 15:00 23:00 07:00 Intake Total 266 ml 500 ml Balance 266 ml 500 ml Intake Oral 60 ml 0 ml IV Total 206 ml 500 ml Bladder Scan Volume Amount 147 ml # Voids 2 2 # Bowel Movements 0 2 Result Diagram: 11/07/16 0557 11/05/16 0626 Imaging Last 72 hours Impressions Chest X-Ray 11/02/161933 Signed Impressions: Service Date/Time: Wednesday, November 02, 2016 19:43 - CONCLUSION: No acute disease. No significant change has occurred. Alex White MD A/P Problem List: (1) Dyspnea Status: Acute Plan: Pt admitted for reactive airways and respiratory infection It is possible that her acute respiratory sx's may be aspiration related to her dysphagia and ?aspiration. There was concern for elevated troponin and lbbb in ED . lexiscan neg for ischemia. She also has chronic intermittent problems with esophageal stricture and dysphagia egd 11/05 shows oral/esophageal jr. botox injected distally. htn. bp elevated due to inability to take bp meds and pain. sinus tach related to acute respiratory illness and then nebs/pain esbl klebsella uti cont nebs. stop prednisone abx for uti diflucan for jr titrate bp meds back up when able to swallow...for now prn iv bp meds and clonidine patch npo for now..aspiration on barium swallow. on ivf PT dvt prophylaxis will plan for hhc/pt (2) Dysphagia Status: Acute Plan: see above (3) Hypertension Status: Chronic Plan: cont current rx (4) Elevated troponin I level Status: Acute Plan: see above (5) UTI (urinary tract infection) Status: Acute Plan: see above Problem Qualifiers (1) Dyspnea: Qualified Code: R06.00 - Dyspnea, unspecified type Sanford Vee MD Nov 07, 2016 08:00
[2016-11-07] MEDS: OXYBUTYNIN CHLORIDE 5 MG TAB PO SCH (09:00)
[2016-11-07] MEDS: GABAPENTIN 300 MG CAP PO SCH ×5 (09:00→20:30)
[2016-11-07] MEDS: CARBOXYMETHYLCELLULOSE EACH EYE SCH (09:00)
[2016-11-07] MEDS: HYPROMELLOSE EACH EYE SCH (09:00)
[2016-11-07] MEDS: PANTOPRAZOLE SOD 20 MG DELAYED RELEASE TAB PO SCH ×3 (09:00→20:30)
[2016-11-07] MEDS: MORPHINE SULFATE 4 MG/ML INJ IV PUSH PRN ×2 (09:15→12:00)
[2016-11-07 09:23] LABS: OVALOCYTES 1+ (NORMAL); SCAN/DIFF AUTO DIFF CONFIRMED; TOXIC VACUOLATION PRESENT (NONE SEEN)
[2016-11-07 10:55] LABS: INTERNATIONAL NORMALIZED RATIO 1.1 RATIO; PROTHROMBIN TIME - PATIENT 12.7 SEC (9.8-11.6)
[2016-11-07 11:20] LABS: ANION GAP 10 MEQ/L (5-15); AST (GOT) 27 U/L (15-37); BICARBONATE 23.7 MEQ/L (21.0-32.0); BLOOD UREA NITROGEN 10 MG/DL (7-18); CHLORIDE 107 MEQ/L (98-107); GLOMERULAR FILTRATION RATE 208 ML/MIN (>89); MAGNESIUM 2.3 MG/DL (1.5-2.5); POTASSIUM 3.3 MEQ/L (3.5-5.1); SODIUM (NA) 141 MEQ/L (136-145)
[2016-11-07 11:22] LABS: ALKALINE PHOSPHATASE 75 U/L (45-117); ALT (GPT) 41 U/L (10-53); TOTAL BILIRUBIN ADULT 0.5 MG/DL (0.2-1.0)
[2016-11-07] MEDS: oxyCODONE/ACETAMINOPHEN 5 MG/325 MG TAB PO SCH (12:00)
[2016-11-07] MEDS ORDERED: ACETAMINOPHEN 1000 MG/100 ML VIAL IV PRN (12:15)
[2016-11-07] MEDS ORDERED: ONDANSETRON HCL 4 MG/2 ML VIAL IV PUSH PRN (12:15)
[2016-11-07] MEDS ORDERED: ACETAMINOPHEN 1000 MG/100 ML VIAL IV ONE (12:15)
[2016-11-07] MEDS: hydrALAZINE HCL 20 MG/ML VIAL IV PUSH PRN ×2 (12:15→20:34)
[2016-11-07] MEDS: FLUCONAZOLE 100 MG PREMIX BAG 50 ML IV SCH (15:00)
[2016-11-07] MEDS ORDERED: niCARdipine 25 MG/NS 250 ML Vial2Bag or IV room IV SCH ×2 (17:30)
[2016-11-07] MEDS: NITROGLYCERIN 2% OINT 1 GM PACKET TOPICAL SCH (18:00)
[2016-11-07] MEDS: SODIUM CHLORIDE 0.9% FLUSH 5 ML FLUSH IVF PRN (20:20)
[2016-11-07] MEDS: cloNIDine HCL 0.1 MG TAB PO PRN (20:24)
[2016-11-07] MEDS ORDERED: CHLORHEXIDINE GLUCONATE 2 % 1 PACK (2 CLOTHS)(extra cloths) TOP PRN (22:45)
[2016-11-07] MEDS: CLINIMIX E 4.25/5 2000 mL- >42 mls/hr IV SCH ×3 (23:05)
[2016-11-07] MEDS: niCARdipine 25 MG/NS 250 ML Vial2Bag or IV room IV SCH ×2 (23:06)
[2016-11-08] VITALS (12 sets, daily range): BP systolic 126–167; BP diastolic 59–70; PULSE 86–102; RESP 15–20; TEMP 98.4–98.9; O2SAT 98–100
[2016-11-08] MEDS: NITROGLYCERIN 2% OINT 1 GM PACKET TOPICAL SCH ×5 (03:25→23:05)
[2016-11-08] MEDS: CHLORHEXIDINE GLUCONATE 2 % 1 PACK (2 CLOTHS)(taper/protocol) TOP SCH (04:00)
[2016-11-08] MEDS: CIPROFLOXACIN 200 MG PREMIX 100 ML IV SCH ×2 (07:36→20:25)
[2016-11-08] MEDS: OXYBUTYNIN CHLORIDE 5 MG TAB PO SCH (07:41)
[2016-11-08] MEDS: GABAPENTIN 300 MG CAP PO SCH (07:42)
[2016-11-08] MEDS: PANTOPRAZOLE SOD 20 MG DELAYED RELEASE TAB PO SCH (07:43)
[2016-11-08] MEDS: HYPROMELLOSE EACH EYE SCH (08:30)
[2016-11-08] MEDS: CARBOXYMETHYLCELLULOSE EACH EYE SCH (08:30)
--- NOTE | 2016-11-08 09:30 | HHI.PR ---
Subjective Remarks moved to icu for bp control no cp. Objective Vitals heart reg. systolic m lsb lung diminished bs abd s/nt ext no edema Vital Signs Date Time Temp Pulse Resp B/P Pulse Ox O2 Delivery O2 Flow Rate FiO2 11/08/16 06:00 93 11/08/16 04:00 89 11/08/16 04:00 98.5 89 20 154/70 98 11/08/16 02:00 94 11/08/16 00:00 98.9 99 18 167/70 98 11/08/16 00:00 Room Air 11/07/16 22:00 94 11/07/16 21:46 158/66 11/07/16 21:00 100 11/07/16 20:00 Room Air 11/07/16 20:00 98.2 91 18 188/77 100 11/07/16 20:00 94 11/07/16 19:00 86 11/07/16 16:00 99.3 87 18 184/83 99 11/07/16 14:00 82 11/07/16 12:00 99.0 87 18 181/90 99 11/07/16 12:00 90 11/07/16 11:00 86 11/07/16 10:00 80 11/07/16 11/07/16 11/08/16 15:00 23:00 07:00 Intake Total 500 ml 630 ml Balance 500 ml 630 ml Intake Oral 0 ml IV Total 500 ml 630 ml # Voids 3 3 # Bowel Movements 2 1 Result Diagram: 11/07/16 0557 11/07/16 1035 Imaging Last 72 hours Impressions Chest X-Ray 11/02/16 1934 Signed Impressions: Service Date/Time: Wednesday, November 02, 2016 19:43 - CONCLUSION: No acute disease. No significant change has occurred. Alex White MD A/P Problem List: (1) Aspiration into airway Status: Acute Plan: --Pt admitted for reactive airways and respiratory distress related to dysphagia and aspiration. --There was concern for elevated troponin and lbbb in ED . lexiscan neg for ischemia. and CTA chest neg for PE or pna ---She also has chronic intermittent problems with esophageal stricture and dysphagia and follows with GI ---egd 11/05 shows oral/esophageal jr. botox injected distally. and barium swallow shows aspiration as well. --- severe htn. bp elevated due to inability to take bp meds and pain. ---sinus tach related to acute respiratory illness and then nebs/pain ---esbl klebsella uti cont nebs. stop prednisone abx for uti diflucan for jr npo and all meds to iv. long talk with family about peg if unable to pass swallow eval. ppn for now moved to icu for cardene gtt. currently sbp 120s. also on clonidine patch and topical ntg. PT dvt prophylaxis will plan for hhc/pt (2) Dyspnea Status: Acute Plan: see above (3) Dysphagia Status: Acute Plan: see above (4) Hypertension Status: Chronic Plan: see above (5) Elevated troponin I level Status: Acute Plan: see above (6) UTI (urinary tract infection) Status: Acute Plan: see above Problem Qualifiers (1) Dyspnea: Qualified Code: R06.00 - Dyspnea, unspecified type Sanford Vee MD Nov 08, 2016 09:30
[2016-11-08 09:31] LABS: HEMATOCRIT 39.8 % (35.0-46.0); MEAN CELL VOLUME 91.9 FL (80.0-100.0); MEAN CORPUSCULAR HEMOGLOBIN 29.4 PG (27.0-34.0); PLATELET COUNT 234 TH/MM3 (150-450); RED BLOOD COUNT 4.33 MIL/MM3 (4.00-5.30); REVIEW FLAG FINAL; WHITE BLOOD COUNT 16.2 TH/MM3 (4.0-11.0)
[2016-11-08 09:45] LABS: BICARBONATE 26.3 MEQ/L (21.0-32.0); POTASSIUM 3.2 MEQ/L (3.5-5.1)
[2016-11-08] MEDS: FAT EMULSION 20% INJ 250 ML (@10 mls/hr) IV SCH (10:00)
[2016-11-08] MEDS: PANTOPRAZOLE SODIUM 40 MG VIAL IV PUSH SCH ×2 (10:01→22:00)
[2016-11-08] MEDS: INSULIN ASPART SUPPLEMENTAL SCALE SQ SCH ×4 (10:15→22:15)
[2016-11-08] MEDS: POTASSIUM CHLOR 20 MEQ PREMIX 100 ML IV SCH ×2 (10:23→12:28)
[2016-11-08] MEDS: niCARdipine 25 MG/NS 250 ML Vial2Bag or IV room IV SCH ×6 (12:29→23:05)
[2016-11-08] MEDS: FLUCONAZOLE 100 MG PREMIX BAG 50 ML IV SCH (14:39)
[2016-11-08] MEDS: CLINIMIX E 4.25/5 2000 mL- >42 mls/hr IV SCH ×3 (20:25)
[2016-11-09] VITALS (13 sets, daily range): BP systolic 124–159; BP diastolic 58–72; PULSE 79–106; RESP 12–29; TEMP 97.6–98.8; O2SAT 97–100
[2016-11-09] MEDS: INSULIN ASPART SUPPLEMENTAL SCALE SQ SCH ×6 (02:15→20:18)
[2016-11-09] MEDS: CHLORHEXIDINE GLUCONATE 2 % 1 PACK (2 CLOTHS)(taper/protocol) TOP SCH (03:28)
[2016-11-09] MEDS: NITROGLYCERIN 2% OINT 1 GM PACKET TOPICAL SCH ×3 (04:47→18:31)
[2016-11-09] MEDS: niCARdipine 25 MG/NS 250 ML Vial2Bag or IV room IV SCH ×8 (04:47→21:47)
[2016-11-09 07:47] LABS: BICARBONATE 25.2 MEQ/L (21.0-32.0); POTASSIUM 3.6 MEQ/L (3.5-5.1)
[2016-11-09] MEDS: CIPROFLOXACIN 200 MG PREMIX 100 ML IV SCH ×2 (09:10→20:18)
[2016-11-09] MEDS: PANTOPRAZOLE SODIUM 40 MG VIAL IV PUSH SCH ×2 (09:10→20:18)
[2016-11-09] MEDS: FAT EMULSION 20% INJ 250 ML (@10 mls/hr) IV SCH (09:10)
--- NOTE | 2016-11-09 09:53 | HHI.IDPN ---
Subjective Subjective Remarks Notes reviewed [place] ok Transferred to ICU for BP control Problem with swallowing on NPO and TPN Bladder scan less than 200 ml Had EGD and botox injection to distal esophagus last week Findings of jr esophagitis, on Diflucan Antibiotics Cipro Lines PIV Past Medical History HTN Spinal stenosis GERD LVH SIL on CPAP at night Depression Chronic back pain 2D echo (03/09/2011): - LV with mild concentric hypertrophy - EF 55-60% - Diastolic dysfunction - Mild thickening of the aortic valve leaflets and mitral valve leaflets Achalasia, previous botox injection Rx R meur fracture, and treatment Past Surgical History ORIF of left arm fracture 04/27/15 Cholecystectomy BRIAN with BSO L3-5 laminectomy/microdiskectomy Cochlear implant EGD with dilatation ORIF R femur fracture 07/2015 Allergies: Coded Allergies: Cymbalta (Unverified Adverse Reaction, Severe, NAUSEA, 11/02/16) Sinemet 10/100 (Unverified Adverse Reaction, Severe, HYPERTENSIOIN, LETHARGY, 11/02/16) *MDRO Multi-Drug Resistant Organism (Verified Adverse Reaction, Unknown, ) ESBL k.Pneumoniae (urine)-11/02/16 Objective . Vital Signs Date Time Temp Pulse Resp B/P Pulse Ox O2 Delivery O2 Flow Rate FiO2 11/09/16 06:00 79 11/09/16 04:00 106 11/09/16 04:00 98.8 106 24 133/60 99 11/09/16 02:00 93 11/09/16 00:00 98.5 86 20 124/58 98 11/09/16 00:00 86 11/08/16 22:00 93 11/08/16 20:00 102 11/08/16 20:00 98.7 102 15 140/62 99 11/08/16 19:00 Room Air 11/08/16 18:00 101 11/08/16 16:00 98.6 100 20 135/62 100 11/08/16 16:00 100 11/08/16 14:00 100 11/08/16 12:52 98.4 96 18 126/59 99 11/08/16 12:52 96 11/08/16 10:00 86 11/08/16 11/08/16 11/09/16 15:00 23:00 07:00 Intake Total 1528 ml 955 ml 952 ml Output Total 1 ml Balance 1528 ml 955 ml 951 ml Intake Oral 0 ml IV Total 1528 ml 955 ml 952 ml Output Stool Total 1 ml # Voids 3 2 2 # Bowel Movements 2 . Laboratory Tests Test 11/08/16 08:53 White Blood Count 16.2 TH/MM3 Red Blood Count 4.33 MIL/MM3 Hemoglobin 12.8 GM/DL Hematocrit 39.8 % Mean Corpuscular Volume 91.9 FL Mean Corpuscular Hemoglobin 29.4 PG Mean Corpuscular Hemoglobin 32.0 % Concent Red Cell Distribution Width 14.0 % Platelet Count 234 TH/MM3 Mean Platelet Volume 10.1 FL Laboratory Tests Test 11/07/16 11/08/16 11/09/16 10:35 08:53 06:28 Sodium Level 141 MEQ/L 139 MEQ/L 139 MEQ/L Potassium Level 3.3 MEQ/L 3.2 MEQ/L 3.6 MEQ/L Chloride Level 107 MEQ/L 105 MEQ/L 105 MEQ/L Carbon Dioxide Level 23.7 MEQ/L 26.3 MEQ/L 25.2 MEQ/L Anion Gap 10 MEQ/L 8 MEQ/L 9 MEQ/L Blood Urea Nitrogen 10 MG/DL 18 MG/DL 18 MG/DL Creatinine 0.36 MG/DL 0.56 MG/DL 0.38 MG/DL Estimat Glomerular Filtration 208 ML/MIN 125 ML/MIN 196 ML/MIN Rate Random Glucose 88 MG/DL 153 MG/DL 111 MG/DL Calcium Level 8.8 MG/DL 8.7 MG/DL 8.4 MG/DL Magnesium Level 2.3 MG/DL Total Bilirubin 0.5 MG/DL Aspartate Amino Transf 27 U/L (AST/SGOT) Alanine Aminotransferase 41 U/L (ALT/SGPT) Alkaline Phosphatase 75 U/L Total Protein 7.0 GM/DL Albumin 3.0 GM/DL Triglycerides Level 83 MG/DL Imaging Myocardial Perfusion Scan Nuc Med 11/04/16 0000 Signed Impressions: Service Date/Time: Friday, November 04, 2016 11:59 - CONCLUSION: 1. No reversible perfusion defect to suggest stress-induced myocardial ischemia. 2. Normal wall motion with normal ejection fraction. RISK CATEGORY: Low (<1% % Annual Mortality Rate) Jh Ortiz MD CT Angiography 11/04/16 0000 Signed Impressions: Service Date/Time: Friday, November 04, 2016 17:47 - CONCLUSION: Chronic changes, otherwise unremarkable. Jim Palumbo MD Chest X-Ray 11/02/161933 Signed Impressions: Service Date/Time: Wednesday, November 02, 2016 19:43 - CONCLUSION: No acute disease. No significant change has occurred. Alex White MD Physical Exam GENERAL: awake and alert, not in any distress. SKIN: Cool and dry. No generalized rash or ecchymoses HEENT: [place] conjunctiva. No scleral icterus. No injection or drainage. Moist oral mucosa. Throat without erythema, or exudate NECK: Trachea midline. No JVD or lymphadenopathy. Supple, nontender, no meningeal signs. CARDIOVASCULAR: Regular rate and rhythm without murmurs, gallops, or rubs. RESPIRATORY: Clear to auscultation. Breath sounds equal bilaterally. No wheezes , rales, or rhonchi. GASTROINTESTINAL: Abdomen soft, nondistended. Not tender. Bowel sounds are present and normoactive. No hepato-splenomegaly, or palpable masses. No guarding. MUSCULOSKELETAL: Extremities without clubbing, cyanosis, or edema. No calf tenderness. NEUROLOGICAL: Non-focal. PSYCH: Calm and cooperative LINE: PIV with no evidence of infection Assessment & Plan Remarks IMPRESSION UTI with E coli ESBL + - ?not emptying bladder well - repeat UC negative before Invanz was started SOB, CXR clear, due to COPD Hx achalasia, causing dysphagia Jr esophagitis Leukocytosis, ? RECOMMENDATION On IV Cipro - switch to po when able to Give Abx until November 16 On Diflucan per GI for jr esophagitis Follow CBC D/W Amaya Hall MD Nov 09, 2016 09:53
--- NOTE | 2016-11-09 15:05 | HHI.GIFU ---
Subjective Remarks Resting in bed. ST came in today while patient was getting PT and therefore they were going to try to come back later today. No n/v. (Haritha Saab) Objective Vitals I&O Vital Signs Date Time Temp Pulse Resp B/P Pulse Ox O2 Delivery O2 Flow Rate FiO2 11/09/16 12:00 98.4 104 27 159/72 100 11/09/16 12:00 104 11/09/16 10:00 94 11/09/16 08:00 97.6 92 27 135/65 97 11/09/16 08:00 97 11/09/16 07:00 Room Air 11/09/16 06:00 79 11/09/16 04:00 106 11/09/16 04:00 98.8 106 24 133/60 99 11/09/16 02:00 93 11/09/16 00:00 98.5 86 20 124/58 98 11/09/16 00:00 86 11/08/16 22:00 93 11/08/16 20:00 102 11/08/16 20:00 98.7 102 15 140/62 99 11/08/16 19:00 Room Air 11/08/16 18:00 101 11/08/16 16:00 98.6 100 20 135/62 100 11/08/16 16:00 100 I/O 11/08/16 11/08/16 11/08/16 11/09/16 11/09/16 11/09/16 07:00 15:00 23:00 07:00 15:00 23:00 Intake Total 630 ml 1528 ml 955 ml 952 ml 1423 ml Output Total 1 ml Balance 630 ml 1528 ml 955 ml 951 ml 1423 ml Intake Oral 0 ml IV Total 630 ml 1528 ml 955 ml 952 ml 540 ml TPN/PPN 789 ml Lipid 94 ml Output Stool Total 1 ml # Voids 3 3 2 2 4 # Bowel Movements 1 2 4 Laboratory Laboratory Tests Test 11/09/16 06:28 Sodium Level 139 Potassium Level 3.6 Chloride Level 105 Carbon Dioxide Level 25.2 Anion Gap 9 Blood Urea Nitrogen 18 Creatinine 0.38 Estimat Glomerular Filtration 196 Rate Random Glucose 111 Calcium Level 8.4 Date/Time Procedure Status Source Growth 11/04/16 17:15 Urine Culture - Final Complete Urine Catheterized Urine NO GROWTH IN 48 HOURS. Imaging Last Impressions Modified Barium Swallow 11/06/16 0000 Signed Impressions: Service Date/Time: Sunday, November 06, 2016 00:00 - CONCLUSION: Aspiration with both liquid and honey thick barium contrast consistencies Philip Chaney MD Myocardial Perfusion Scan [facility] [place] 11/04/16 0000 Signed Impressions: Service Date/Time: Friday, November 04, 2016 11:59 - CONCLUSION: 1. No reversible perfusion defect to suggest stress-induced myocardial ischemia. 2. Normal wall motion with normal ejection fraction. RISK CATEGORY: Low (<1% % Annual Mortality Rate) Jh Ortiz MD CT Angiography 11/04/16 0000 Signed Impressions: Service Date/Time: Friday, November 04, 2016 17:47 - CONCLUSION: Chronic changes, otherwise unremarkable. Jim Palumbo MD Chest X-Ray 11/02/161933 Signed Impressions: Service Date/Time: Wednesday, November 02, 2016 19:43 - CONCLUSION: No acute disease. No significant change has occurred. Alex White MD Physical Exam HEENT: Normocephalic; atraumatic; no jaundice. CHEST: CTA CARDIAC: Regular ABDOMEN: Soft, nondistended, nontender; no hepatosplenomegaly; bowel sounds are present in all four quadrants. EXTREMITIES: No clubbing, cyanosis, or edema. SKIN: Normal; no rash; no jaundice. 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 (Haritha Saab [facility]) Assessment and Plan Plan ASSESSMENT: - Dysphagia with hx of achalasia. 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 She and her daughter report that she did very well with this and has not had any further issues with swallowing up until 1.5-2 weeks ago, when solids seemed to start getting lodged in her upper esophagus/bringing up foam/increased heartburn. No improvement with PPI, TUMS, Faye [place], Gas x. S/P EGD with dilatation, botox injections (11/05/16)----> 1. Gastritis antrum-biopsy, esophagitis distal esophagus- biopsy, white deposits in esophagus-retained food and jr, white deposits in mouth BOTOX injected in diatal esophagus-100 units-25 units in each quadrant, 2. Retroflexed views revealed a hiatal hernia. Pathology moderately active chronic antral gastritis, no H. Pylori, superficial squamous epithelium with acute inflammation and numerous fungal organisms, distal esophagus biopsy with gastric type mucosa with moderately active chronic inflammation, keratotic debris with mixed inflammation and numerous fungal organisms. S/P MBS (11/06/16)---> gema aspiration for all consistencies presented, a chin tuck did not eliminate aspiration. Recommended NPO with consideration for bypass feedings. Pt was started on Diflucan, on PPI. Plan was to repeat ST early this week to see if any improvement. They came in today, but was getting PT so they are going to try to come back. She is on TPN. NPO. Await ST evaluation, if still not passing, will need to consider PEG. D/W patient and family at bedside. Of note, she is on a Cardene gtt right now. - Elevated troponin. On heparin gtt. Cardiology, who feels that her elevated troponin I is most likely demand mediated. S/P Lexiscan, no reversible perfusion defect to suggest stress induced myocardial ischemia, normal wall motion with normal ejection fraction. - Shortness of breath, improved. Per primary. PLAN: - NPO - PPI - Diflucan - ST - ? Need for PEG tube, will await repeat ST - Further recommendations to follow based on results of above - Pt seen and examined by Dr. Andrews and myself and this note is written on his behalf (Haritha Saab) Physician Comments Patient seen and examined Agree with above Continue with current supportive care Monitor labs Await speech therapy for decision regarding PEG tube placement (Arvind Andrews MD) Haritha Saab Nov 09, 2016 15:05 Arvind Andrews MD Nov 09, 2016 22:26
[2016-11-09] MEDS: FLUCONAZOLE 100 MG PREMIX BAG 50 ML IV SCH (15:35)
--- NOTE | 2016-11-09 16:37 | HHI.PR ---
Subjective Remarks No new complaints. Objective Vitals Vital Signs Date Time Temp Pulse Resp B/P Pulse Ox O2 Delivery O2 Flow Rate FiO2 11/09/16 16:00 98.6 103 29 144/66 97 11/09/16 16:00 103 11/09/16 14:00 101 11/09/16 12:00 98.4 104 27 159/72 100 11/09/16 12:00 104 11/09/16 10:00 94 11/09/16 08:00 97.6 92 27 135/65 97 11/09/16 08:00 97 11/09/16 07:00 Room Air 11/09/16 06:00 79 11/09/16 04:00 106 11/09/16 04:00 98.8 106 24 133/60 99 11/09/16 02:00 93 11/09/16 00:00 98.5 86 20 124/58 98 11/09/16 00:00 86 11/08/16 22:00 93 11/08/16 20:00 102 11/08/16 20:00 98.7 102 15 140/62 99 11/08/16 19:00 Room Air 11/08/16 18:00 101 11/08/16 11/08/16 11/09/16 15:00 23:00 07:00 Intake Total 1528 ml 955 ml 952 ml Output Total 1 ml Balance 1528 ml 955 ml 951 ml Intake Oral 0 ml IV Total 1528 ml 955 ml 952 ml Output Stool Total 1 ml # Voids 3 2 2 # Bowel Movements 2 Result Diagram: 11/08/16 0853 11/09/16 0628 Imaging Last 72 hours Impressions Chest X-Ray 11/02/16 193 Signed Impressions: Service Date/Time: Wednesday, November 02, 2016 19:43 - CONCLUSION: No acute disease. No significant change has occurred. Alex White MD Objective Remarks GENERAL: This is a well-nourished, well-developed patient, in no apparent distress. CARDIOVASCULAR: Regular rate and rhythm without murmurs, gallops, or rubs. RESPIRATORY: Clear to auscultation. Breath sounds equal bilaterally. No wheezes , rales, or rhonchi. GASTROINTESTINAL: Abdomen soft, non-tender, nondistended. Normal active bowel sounds MUSCULOSKELETAL: Extremities without clubbing, cyanosis, or edema. NEURO: Alert & Oriented x2. LIU A/P Problem List: (1) Aspiration into airway Status: Acute Plan: --Pt admitted for reactive airways and respiratory distress related to dysphagia and aspiration. --There was concern for elevated troponin and lbbb in ED . lexiscan neg for ischemia. and CTA chest neg for PE or pna ---She also has chronic intermittent problems with esophageal stricture and dysphagia and follows with GI ---egd 11/05 shows oral/esophageal jr. botox injected distally. and barium swallow shows aspiration as well. --- severe htn. bp elevated due to inability to take bp meds and pain. ---sinus tach related to acute respiratory illness and then nebs/pain ---esbl klebsella uti - duonebs - abx for uti - diflucan for jr - still NPO, anticipate will need PEG - awaiting repeat evaluation by ST Elsi robles for now - cardene gtt, clonidine patch and topical ntg. PT dvt prophylaxis will plan for hhc/pt (2) Dyspnea Status: Acute Plan: see above (3) Dysphagia Status: Acute Plan: see above (4) Hypertension Status: Chronic Plan: see above (5) Elevated troponin I level Status: Acute Plan: see above (6) UTI (urinary tract infection) Status: Acute Plan: see above Problem Qualifiers (1) Dyspnea: Qualified Code: R06.00 - Dyspnea, unspecified type Akbar Balderas DO Nov 09, 2016 16:37
[2016-11-09] MEDS: CLINIMIX E 4.25/5 2000 mL- >42 mls/hr IV SCH ×3 (20:18)
[2016-11-09] MEDS: MORPHINE SULFATE 4 MG/ML INJ IV PRN (20:23)
[2016-11-10] VITALS (11 sets, daily range): BP systolic 132–177; BP diastolic 61–70; PULSE 83–105; RESP 17–31; TEMP 97.5–98.8; O2SAT 95–100
[2016-11-10] MEDS: NITROGLYCERIN 2% OINT 1 GM PACKET TOPICAL SCH ×2 (00:30→06:01)
[2016-11-10] MEDS: MORPHINE SULFATE 4 MG/ML INJ IV PRN ×5 (01:47→19:06)
[2016-11-10] MEDS: INSULIN ASPART SUPPLEMENTAL SCALE SQ SCH ×5 (01:58→21:50)
[2016-11-10] MEDS: CHLORHEXIDINE GLUCONATE 2 % 1 PACK (2 CLOTHS)(taper/protocol) TOP SCH (04:00)
[2016-11-10] MEDS: CIPROFLOXACIN 200 MG PREMIX 100 ML IV SCH (08:26)
[2016-11-10] MEDS: PANTOPRAZOLE SODIUM 40 MG VIAL IV PUSH SCH ×2 (09:17→21:36)
[2016-11-10] MEDS: FAT EMULSION 20% INJ 250 ML (@10 mls/hr) IV SCH (09:17)
--- NOTE | 2016-11-10 10:44 | HHI.GIFU ---
Subjective Remarks Resting in bed. More alert today. Passed her swallow evaluation this am with ST. No n/v. (Haritha SaabP) Objective Vitals I&O Vital Signs Date Time Temp Pulse Resp B/P Pulse Ox O2 Delivery O2 Flow Rate FiO2 11/10/16 06:00 96 11/10/16 04:00 105 11/10/16 04:00 98.5 86 31 132/61 99 11/10/16 02:00 93 11/10/16 01:54 22 11/10/16 00:00 97 11/10/16 00:00 98.8 97 23 138/63 99 11/09/16 22:00 92 11/09/16 20:00 97 11/09/16 20:00 98.7 97 12 131/61 97 11/09/16 19:32 97 21 11/09/16 19:00 Room Air 11/09/16 18:00 91 11/09/16 16:00 98.6 103 29 144/66 97 11/09/16 16:00 103 11/09/16 14:00 101 11/09/16 12:00 98.4 104 27 159/72 100 11/09/16 12:00 104 I/O 11/09/16 11/09/16 11/09/16 11/10/16 11/10/16 11/10/16 07:00 15:00 23:00 07:00 15:00 23:00 Intake Total 952 ml 1423 ml 1017 ml 933 ml Output Total 1 ml Balance 951 ml 1423 ml 1017 ml 933 ml IV Total 952 ml 540 ml 202 ml 164 ml TPN/PPN 789 ml 731 ml 686 ml Lipid 94 ml 84 ml 83 ml Output Stool Total 1 ml # Voids 2 4 3 2 # Bowel Movements 4 3 2 Imaging Last Impressions Modified Barium Swallow 11/06/16 0000 Signed Impressions: Service Date/Time: Sunday, November 06, 2016 00:00 - CONCLUSION: Aspiration with both liquid and honey thick barium contrast consistencies Philip Chaney MD Myocardial Perfusion Scan Nuc Med 11/04/16 0000 Signed Impressions: Service Date/Time: Friday, November 04, 2016 11:59 - CONCLUSION: 1. No reversible perfusion defect to suggest stress-induced myocardial ischemia. 2. Normal wall motion with normal ejection fraction. RISK CATEGORY: Low (<1% % Annual Mortality Rate) Jh Ortiz MD CT Angiography 11/04/16 0000 Signed Impressions: Service Date/Time: Friday, November 04, 2016 17:47 - CONCLUSION: Chronic changes, otherwise unremarkable. Jim Palumbo MD Chest X-Ray 11/02/16 1934 Signed Impressions: Service Date/Time: Wednesday, November 02, 2016 19:43 - CONCLUSION: No acute disease. No significant change has occurred. Alex White MD Physical Exam HEENT: Normocephalic; atraumatic; no jaundice. CHEST: CTA CARDIAC: Regular ABDOMEN: Soft, nondistended, nontender; no hepatosplenomegaly; bowel sounds are present in all four quadrants. EXTREMITIES: No clubbing, cyanosis, or edema. SKIN: Normal; no rash; no jaundice. TECHNICAL SOURCING RECRUITER: No focal deficits; alert and oriented times three. (Haritha Saab [facility]) Assessment and Plan Plan ASSESSMENT: - Dysphagia with hx of achalasia. 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 She and her daughter report that she did very well with this and has not had any further issues with swallowing up until 1.5-2 weeks ago, when solids seemed to start getting lodged in her upper esophagus/bringing up foam/increased heartburn. No improvement with PPI, TUMS, [place], Gas x. S/P EGD with dilatation, botox injections (11/05/16)----> 1. Gastritis antrum-biopsy, esophagitis distal esophagus- biopsy, white deposits in esophagus-retained food and jr, white deposits in mouth BOTOX injected in diatal esophagus-100 units-25 units in each quadrant, 2. Retroflexed views revealed a hiatal hernia. Pathology moderately active chronic antral gastritis, no H. Pylori, superficial squamous epithelium with acute inflammation and numerous fungal organisms, distal esophagus biopsy with gastric type mucosa with moderately active chronic inflammation, keratotic debris with mixed inflammation and numerous fungal organisms. S/P MBS (11/06/16)---> gema aspiration for all consistencies presented, a chin tuck did not eliminate aspiration. Recommended NPO with consideration for bypass feedings. Pt was started on Diflucan, on PPI. ST was in this am, passed swallow evaluation- puree with honey thickened liquids. Will consult motorcycle delivery driver for calorie count and add ensure to diet. - Elevated troponin. Cardiology, who feels that her elevated troponin I is most likely demand mediated. S/P Lexiscan, no reversible perfusion defect to suggest stress induced myocardial ischemia, normal wall motion with normal ejection fraction. - Shortness of breath, improved. Per primary. PLAN: - Puree diet with honey thickened liquids, add ensure TID - Consult Seafood Processor for 3 day calorie count - PPI - Diflucan - Cont. ST - ? Need for PEG tube, passed swallow evaluation, but will need to also make sure she is meeting her nutritional requirements. - Further recommendations to follow based on results of above - Pt seen and examined by Dr. Andrews and myself and this note is written on his behalf (Haritha Saab) Physician Comments Patient seen and examined Agree with above Continue with current supportive care Monitor labs Calorie count to commence And until this determines that the patient requires PEG tube there is no need for it at this point GI will sign off and please reconsult as needed (Arvind Andrews MD) Haritha Saab Nov 10, 2016 10:44 Arvind Andrews MD Nov 10, 2016 21:51
--- NOTE | 2016-11-10 12:11 | HHI.PR ---
Subjective Remarks Pt passed swallow evaluation with ST this AM. Pt has NO new complaints. Objective Vitals Vital Signs Date Time Temp Pulse Resp B/P Pulse Ox O2 Delivery O2 Flow Rate FiO2 11/10/16 08:00 83 11/10/16 08:00 98.5 100 27 149/68 99 11/10/16 07:00 99 Room Air 11/10/16 06:00 96 11/10/16 04:00 105 11/10/16 04:00 98.5 86 31 132/61 99 11/10/16 02:00 93 11/10/16 01:54 22 11/10/16 00:00 97 11/10/16 00:00 98.8 97 23 138/63 99 11/09/16 22:00 92 11/09/16 20:00 97 11/09/16 20:00 98.7 97 12 131/61 97 11/09/16 19:32 97 21 11/09/16 19:00 Room Air 11/09/16 18:00 91 11/09/16 16:00 98.6 103 29 144/66 97 11/09/16 16:00 103 11/09/16 14:00 101 11/09/16 11/09/16 11/10/16 15:00 23:00 07:00 Intake Total 1423 ml 1017 ml 933 ml Balance 1423 ml 1017 ml 933 ml IV Total 540 ml 202 ml 164 ml TPN/PPN 789 ml 731 ml 686 ml Lipid 94 ml 84 ml 83 ml # Voids 4 3 2 # Bowel Movements 4 3 2 Result Diagram: 11/08/16 0853 11/09/16 0628 Imaging Last 72 hours Impressions Chest X-Ray 11/02/16 193 Signed Impressions: Service Date/Time: Wednesday, November 02, 2016 19:43 - CONCLUSION: No acute disease. No significant change has occurred. Alex White MD Objective Remarks GENERAL: This is a well-nourished, well-developed patient, in no apparent distress. CARDIOVASCULAR: Regular rate and rhythm without murmurs, gallops, or rubs. RESPIRATORY: Clear to auscultation. Breath sounds equal bilaterally. No wheezes , rales, or rhonchi. GASTROINTESTINAL: Abdomen soft, non-tender, nondistended. Normal active bowel sounds MUSCULOSKELETAL: Extremities without clubbing, cyanosis, or edema. NEURO: Alert & Oriented x2. LIU A/P Problem List: (1) Aspiration into airway Status: Acute Plan: - Pt admitted for reactive airways and respiratory distress related to dysphagia and aspiration. - There was concern for elevated troponin and lbbb in ED - lexiscan neg for ischemia. - CTA chest neg for PE or pna - Pt also has chronic intermittent problems with esophageal stricture and dysphagia and follows with GI - egd 11/05 shows oral/esophageal jr. botox injected distally. and barium swallow shows aspiration as well. - Pt weaned off of IV cardene - Pt now able to swallow, lisinopril restarted, NTG patch stopped, clonidine patch ---esbl klebsella uti --> cipro - diflucan for jr - continue ppn for now PT dvt prophylaxis will plan for hhc/pt (2) Dysphagia Status: Acute Plan: - comgmt with GI - Pt passed swallow eval & diet resumed - continue PPN for now - calorie count ordered by GI - await results calorie count, possible PEG (3) Hypertension Status: Chronic Plan: - off cardene drip - NTG patch stopped - lisinopril resumed - transdermal catapress (4) Elevated troponin I level Status: Acute Plan: - negative lexiscan, see above (5) UTI (urinary tract infection) Status: Acute Plan: - E. Coli ESBL - comgmt with Infectious Disease - IV Ciprofloxin (11/07 - present), change cipro to PO Problem Qualifiers (1) Hypertension: Qualified Code: I10 - Essential hypertension (2) UTI (urinary tract infection): Qualified Code: N30.00 - Acute cystitis without hematuria Akbar Balderas DO Nov 10, 2016 12:11
[2016-11-10] MEDS: CIPROFLOXACIN 250 MG TAB PO SCH (21:36)
[2016-11-10] MEDS: CLINIMIX E 4.25/5 2000 mL- >42 mls/hr IV SCH ×3 (21:36)
[2016-11-11] MEDS: MORPHINE SULFATE 4 MG/ML INJ IV PRN (00:03)
[2016-11-11 00:43] VITALS: BP 173/72; PULSE 98; RESP 17; TEMP 97.5; O2SAT 96
[2016-11-11] MEDS: INSULIN ASPART SUPPLEMENTAL SCALE SQ SCH ×6 (02:13→23:00)
[2016-11-11 04:33] VITALS: BP 161/72; PULSE 101; RESP 17; TEMP 98; O2SAT 100
[2016-11-11 07:19] LABS: HEMATOCRIT 39.8 % (35.0-46.0); MEAN CORPUSCULAR HEMOGLOBIN 30.8 PG (27.0-34.0); MEAN CORPUSCULAR HGB CONC 33.5 % (32.0-36.0); PLATELET COUNT 205 TH/MM3 (150-450); RED BLOOD COUNT 4.33 MIL/MM3 (4.00-5.30); RED CELL DISTRIBUTION WIDTH 14.1 % (11.6-17.2); REVIEW FLAG FINAL; WHITE BLOOD COUNT 11.6 TH/MM3 (4.0-11.0)
[2016-11-11 08:00] VITALS: BP 165/76; PULSE 101; RESP 21; TEMP 97.2; O2SAT 100
[2016-11-11] MEDS: CIPROFLOXACIN 250 MG TAB PO SCH ×2 (08:47→20:57)
[2016-11-11] MEDS: PANTOPRAZOLE SODIUM 40 MG VIAL IV PUSH SCH ×2 (08:47→22:00)
[2016-11-11] MEDS: LISINOPRIL 20 MG TAB PO SCH (08:47)
[2016-11-11] MEDS: FLUCONAZOLE 100 MG TAB PO SCH (08:47)
[2016-11-11] MEDS: FAT EMULSION 20% INJ 250 ML (@10 mls/hr) IV SCH (08:52)
[2016-11-11 12:00] VITALS: BP 177/83; PULSE 103; RESP 20; TEMP 95.8; O2SAT 100
[2016-11-11 16:00] VITALS: BP 176/68; PULSE 108; RESP 20; TEMP 98.5; O2SAT 99
[2016-11-11] MEDS ORDERED: cloNIDine HCL 0.2 MG TAB PO PRN (17:45)
[2016-11-11] MEDS ORDERED: ENALAPRILAT 1.25 MG/ML VIAL IV PRN (17:45)
--- NOTE | 2016-11-11 17:47 | HHI.PR ---
Subjective Remarks No new complaints. Still with poor PO intake. Objective Vitals Vital Signs Date Time Temp Pulse Resp B/P Pulse Ox O2 Delivery O2 Flow Rate FiO2 11/11/16 16:00 98.5 108 20 176/68 99 11/11/16 12:00 95.8 103 20 177/83 100 11/11/16 08:00 97.2 101 21 165/76 100 11/11/16 04:33 98.0 101 17 161/72 100 11/11/16 00:43 97.5 98 17 173/72 96 11/10/16 23:06 Room Air 11/10/16 20:04 97.5 102 17 177/69 95 11/10/16 17:52 97.8 101 18 154/70 100 11/10/16 11/10/16 11/11/16 15:00 23:00 07:00 Intake Total 1159 ml 280 ml 60 ml Balance 1159 ml 280 ml 60 ml Intake Oral 222 ml 120 ml 60 ml IV Total 116 ml TPN/PPN 734 ml 143 ml Lipid 87 ml 17 ml # Voids 4 6 3 # Bowel Movements 1 Result Diagram: 11/11/16 0647 11/09/16 0628 Imaging Last 72 hours Impressions Chest X-Ray 11/02/16 193 Signed Impressions: Service Date/Time: Wednesday, November 02, 2016 19:43 - CONCLUSION: No acute disease. No significant change has occurred. Alex White MD Objective Remarks GENERAL: This is a well-nourished, well-developed patient, in no apparent distress. CARDIOVASCULAR: Regular rate and rhythm without murmurs, gallops, or rubs. RESPIRATORY: Clear to auscultation. Breath sounds equal bilaterally. No wheezes , rales, or rhonchi. GASTROINTESTINAL: Abdomen soft, non-tender, nondistended. Normal active bowel sounds MUSCULOSKELETAL: Extremities without clubbing, cyanosis, or edema. NEURO: Alert & Oriented x2. LIU A/P Problem List: (1) Dysphagia Status: Acute Plan: - comgmt with GI - Pt passed swallow eval & diet resumed - continue PPN for now - calorie count ordered by GI - await results calorie count, possible PEG 11/11/16 - continue calorie count per GI, await results. (2) Aspiration into airway Status: Acute Plan: - Pt admitted for reactive airways and respiratory distress related to dysphagia and aspiration. - There was concern for elevated troponin and lbbb in ED - lexiscan neg for ischemia. - CTA chest neg for PE or pna - Pt also has chronic intermittent problems with esophageal stricture and dysphagia and follows with GI - egd 11/05 shows oral/esophageal jr. botox injected distally. and barium swallow shows aspiration as well. - Pt weaned off of IV cardene - Pt now able to swallow, lisinopril restarted, NTG patch stopped, clonidine patch ---esbl klebsella uti --> cipro - diflucan for jr - continue ppn for now PT dvt prophylaxis will plan for hhc/pt (3) Hypertension Status: Chronic Plan: - off cardene drip - NTG patch stopped - lisinopril resumed - transdermal catapress - start procardia xl 60mg daily (4) Elevated troponin I level Status: Acute Plan: - negative lexiscan, see above (5) UTI (urinary tract infection) Status: Acute Plan: - E. Coli ESBL - comgmt with Infectious Disease - IV Ciprofloxin (11/07 - present), change cipro to PO Problem Qualifiers (1) Hypertension: Qualified Code: I10 - Essential hypertension (2) UTI (urinary tract infection): Qualified Code: N30.00 - Acute cystitis without hematuria Akbar Balderas DO Nov 11, 2016 17:47
[2016-11-11] MEDS: oxyCODONE/ACETAMINOPHEN 5 MG/325 MG TAB PO PRN (18:13)
[2016-11-11] MEDS: NIFEdipine 60 MG SUSTAINED RELEASE TAB PO SCH (18:13)
[2016-11-11 20:00] VITALS: BP 113/53; PULSE 105; RESP 16; TEMP 98.3; O2SAT 98
[2016-11-11] MEDS: CLINIMIX E 4.25/5 2000 mL- >42 mls/hr IV SCH ×3 (23:01)
[2016-11-12] VITALS (7 sets, daily range): BP systolic 104–134; BP diastolic 55–62; PULSE 80–114; RESP 16–20; TEMP 95.3–98.7; O2SAT 96–98
[2016-11-12] MEDS: INSULIN ASPART SUPPLEMENTAL SCALE SQ SCH ×5 (05:42→20:51)
[2016-11-12] MEDS: oxyCODONE/ACETAMINOPHEN 5 MG/325 MG TAB PO PRN ×3 (05:57→18:36)
[2016-11-12] MEDS: CIPROFLOXACIN 250 MG TAB PO SCH ×2 (08:45→20:51)
[2016-11-12] MEDS: FLUCONAZOLE 100 MG TAB PO SCH (08:45)
[2016-11-12] MEDS: LISINOPRIL 20 MG TAB PO SCH (08:45)
[2016-11-12] MEDS: NIFEdipine 60 MG SUSTAINED RELEASE TAB PO SCH (08:46)
[2016-11-12] MEDS: PANTOPRAZOLE SODIUM 40 MG VIAL IV PUSH SCH ×2 (10:49→20:51)
[2016-11-12] MEDS: FAT EMULSION 20% INJ 250 ML (@10 mls/hr) IV SCH (10:49)
--- NOTE | 2016-11-12 15:06 | HHI.PR ---
Subjective Remarks Nursing reports that pt is consuming at least 50% of her meals. Objective Vitals Vital Signs Date Time Temp Pulse Resp B/P Pulse Ox O2 Delivery O2 Flow Rate FiO2 11/12/16 12:00 98.0 111 18 134/62 96 11/12/16 09:39 Room Air 11/12/16 08:00 97.3 99 18 121/59 96 11/12/16 04:00 95.3 105 16 111/55 96 11/12/16 02:19 114 11/12/16 00:00 96.4 104 18 117/58 98 11/11/16 21:00 Room Air 11/11/16 20:00 98.3 105 16 113/53 98 11/11/16 16:00 98.5 108 20 176/68 99 11/11/16 11/11/16 11/12/16 15:00 23:00 07:00 Intake Total 240 ml 357 ml Balance 240 ml 357 ml Intake Oral 240 ml TPN/PPN 314 ml Lipid 43 ml # Voids 2 2 # Bowel Movements 1 2 Result Diagram: 11/11/16 0647 11/09/16 0628 Imaging Last 72 hours Impressions Chest X-Ray 11/02/161933 Signed Impressions: Service Date/Time: Wednesday, November 02, 2016 19:43 - CONCLUSION: No acute disease. No significant change has occurred. Alex White MD Objective Remarks GENERAL: This is a well-nourished, well-developed patient, in no apparent distress. CARDIOVASCULAR: Regular rate and rhythm without murmurs, gallops, or rubs. RESPIRATORY: Clear to auscultation. Breath sounds equal bilaterally. No wheezes , rales, or rhonchi. GASTROINTESTINAL: Abdomen soft, non-tender, nondistended. Normal active bowel sounds MUSCULOSKELETAL: Extremities without clubbing, cyanosis, or edema. NEURO: Alert & Oriented x2. LIU A/P Problem List: (1) Dysphagia Status: Acute Plan: - comgmt with GI - Pt passed swallow eval & diet resumed, now consuming 50% of her meals - stop PPN - calorie count ordered by GI - hold off on PEG at this time - anticipate d/c to SNF 11/13/16 (2) Aspiration into airway Status: Acute Plan: - Pt admitted for reactive airways and respiratory distress related to dysphagia and aspiration. - There was concern for elevated troponin and lbbb in ED - lexiscan neg for ischemia. - CTA chest neg for PE or pna - Pt also has chronic intermittent problems with esophageal stricture and dysphagia and follows with GI - egd 11/05 shows oral/esophageal jr. botox injected distally. and barium swallow shows aspiration as well. - Pt weaned off of IV cardene - Pt now able to swallow, lisinopril restarted, NTG patch stopped, clonidine patch ---esbl klebsella uti --> cipro - diflucan for jr PT dvt prophylaxis - plan d/c to SNF (3) Hypertension Status: Chronic Plan: - off cardene drip - NTG patch stopped - lisinopril resumed - transdermal catapress - start procardia xl 60mg daily (4) Elevated troponin I level Status: Acute Plan: - negative lexiscan, see above (5) UTI (urinary tract infection) Status: Acute Plan: - E. Coli ESBL - comgmt with Infectious Disease - IV Ciprofloxin (11/07 - present), change cipro to PO Problem Qualifiers (1) Hypertension: Qualified Code: I10 - Essential hypertension (2) UTI (urinary tract infection): Qualified Code: N30.00 - Acute cystitis without hematuria Akbar Balderas DO Nov 12, 2016 15:06
[2016-11-13] VITALS (7 sets, daily range): BP systolic 101–121; BP diastolic 50–60; PULSE 68–112; RESP 16–18; TEMP 96.7–97.9; O2SAT 96–100
[2016-11-13] MEDS: oxyCODONE/ACETAMINOPHEN 5 MG/325 MG TAB PO PRN ×3 (00:17→14:24)
[2016-11-13] MEDS: INSULIN ASPART SUPPLEMENTAL SCALE SQ SCH ×5 (02:11→18:15)
[2016-11-13] MEDS: FLUCONAZOLE 100 MG TAB PO SCH (08:17)
[2016-11-13] MEDS: CIPROFLOXACIN 250 MG TAB PO SCH (08:17)
[2016-11-13] MEDS: NIFEdipine 60 MG SUSTAINED RELEASE TAB PO SCH (08:17)
[2016-11-13] MEDS: LISINOPRIL 20 MG TAB PO SCH (08:17)
[2016-11-13] MEDS: PANTOPRAZOLE SODIUM 40 MG VIAL IV PUSH SCH (11:02)
[2016-11-13] MEDS: cloNIDine HCL 0.2 MG/24 HR PATCH TD SCH (14:25)
[2016-11-13] MEDS ORDERED: REMOVE OLD PATCH T-DERMAL SCH (15:00)
[2016-11-13] MEDS ORDERED: CLON.2 PO (16:02)
[2016-11-13] MEDS ORDERED: NIFE1TAB85 PO (16:02)
[2016-11-13] MEDS ORDERED: OXYC1TAB63 PO (16:02)
[2016-11-13] MEDS ORDERED: IPRASOL NEB (16:02)
[2016-11-13] MEDS ORDERED: DIFL100T PO (16:02)
[2016-11-13] MEDS ORDERED: GABA100C4 PO (16:02)
[2016-11-13] MEDS ORDERED: CLON.2T TD (16:02)
[2016-11-13] MEDS ORDERED: CIPR250T52 PO (16:02)
--- NOTE | 2016-11-13 16:08 | HHI.DCPOC ---
Discharge Care Plan Diagnosis: (1) Hypertension (2) Aspiration into airway (3) Decubitus ulcer (4) UTI (urinary tract infection) (5) Dysphagia (6) Elevated troponin I level (7) Upper respiratory infection (8) HTN (hypertension), benign (9) Anorexia Goals to Promote Your Health * To prevent worsening of your condition and complications * To maintain your health at the optimal level Directions to Meet Your Goals Take your medications as prescribed Follow your dietary instruction Follow activity as directed Keep your appointments as scheduled Take your immunizations and boosters as scheduled If your symptoms worsen call your PCP, if no PCP go to Urgent Care Center or Emergency Room Smoking is Dangerous to Your Health. Avoid second hand smoke Call the 24-hour hour crisis hotline for domestic abuse at Akbar Balderas DO Nov 13, 2016 16:08
--- NOTE | 2016-11-13 16:10 | HHI.DS ---
Discharge Summary Admission Date Nov 02, 2016 at 21:06 Admitting Diagnosis Dyspnea, Elevated Tn, UTI, N/V (1) Dysphagia Diagnosis: Principal (2) Aspiration into airway Diagnosis: Principal (3) UTI (urinary tract infection) Diagnosis: Principal (4) Hypertension Diagnosis: Secondary (5) Elevated troponin I level Diagnosis: Secondary Brief History The patient is 81 years old and arrives by EMS due to shortness of breath. EMS reports wheezing and retraction on scene. Patient was able to speak in very short sentences on scene. The O2 sat was 96%. They gave 2 rounds of albuterol and 125 mg of Solu-Medrol. EMS reports wheezing improved after treatments. She has no history of asthma or COPD per family report. She denies history of CHF. She does take Lasix. In the ER she denies chest pain. She also denies fever. The patient has been short of breath throughout the course of the day. She was seen here in the ER earlier today and diagnosed with a URI and discharged with Levaquin which she took as prescribed. She reports coughing quite a bit over the past few days and completed a Z-maria elena prescribed last week. Cough has been generally nonproductive with the exception of some white frothy discharge earlier today per family member. On scene EMS reports a blood pressure of 160/96, heart rate 123 and tachypnea at 30 breaths per minute. The daughter provides additional information noting that the nausea and vomiting started prior to EMS arrival. She was also diaphoretic prior to EMS arrival. No hemoptysis or hematemesis. She was noted to have a left bundle branch block initially per ER physician which resolved with metoprolol administration. She has been evaluated by Dr. Gusman from cardiology and serial enzymes have been ordered. CBC/BMP: 11/11/16 0647 11/09/16 0628 Significant Findings Laboratory Tests Test 11/11/16 06:47 White Blood Count 11.6 TH/MM3 (4.0-11.0) PE at Discharge GENERAL: This is a well-nourished, well-developed patient, in no apparent distress. CARDIOVASCULAR: Regular rate and rhythm without murmurs, gallops, or rubs. RESPIRATORY: Clear to auscultation. Breath sounds equal bilaterally. No wheezes , rales, or rhonchi. GASTROINTESTINAL: Abdomen soft, non-tender, nondistended. Normal active bowel sounds MUSCULOSKELETAL: Extremities without clubbing, cyanosis, or edema. NEURO: Alert & Oriented x2. LIU Hospital Course (1) Dysphagia Status: Acute Plan: - comgmt with GI - Pt passed swallow eval & diet resumed, - PPN stopped - NO PEG at this time - d/c to SNF 11/13/16 (2) Aspiration into airway Status: Acute Plan: - Pt admitted for reactive airways and respiratory distress related to dysphagia and aspiration. - There was concern for elevated troponin and lbbb in ED - lexiscan neg for ischemia. - CTA chest neg for PE or pna - Pt also has chronic intermittent problems with esophageal stricture and dysphagia and follows with GI - egd 11/05 shows oral/esophageal jr. botox injected distally. and barium swallow shows aspiration as well. - Pt weaned off of IV cardene - Pt able to swallow, lisinopril restarted, NTG patch stopped, clonidine patch - procardia XL initially 60mg but will discharge on 30mg with parameters since BPs trending low ---esbl klebsella uti --> cipro finish 11/16/16 - diflucan completed - discharge to SNF (3) Hypertension Status: Chronic Plan: - off cardene drip - NTG patch stopped - lisinopril resumed - transdermal catapress - start procardia xl 60mg daily, but BP trending too low procardia XL decreased to 30mg daily with parameters (4) Elevated troponin I level Status: Acute Plan: - negative lexiscan, see above (5) UTI (urinary tract infection) Status: Acute Plan: - E. Coli ESBL - comgmt with Infectious Disease - IV Ciprofloxin (11/07 - present), change cipro to PO and complete 3 additional days upon discharge per ID recommendations Pt Condition on Discharge: Stable Discharge Disposition: Discharge to SNF Discharge Instructions DIET: Follow Instructions for: Heart Healthy Diet Speech Therapy-Diet Recommends: Honey Thickened Liquids, Pureed Activities you can perform: Weight Bearing as Charissa Follow up Referrals: PCP Follow-up - [address] Rosendo Dougherty f/u with PCP, Dr. Rosendo Dougherty, one week after discharge from SNF New Medications: Gabapentin (Gabapentin) 100 Mg Cap 100 MG PO TID neuropathy Days 30 Ref 0 CAP Nifedipine ER 24 HR (Procardia XL) 30 Mg Tab 30 MG PO DAILY HOLD FOR SBP BELOW 130 HTN #30 Ref 0 TAB Ciprofloxacin (Cipro) 250 Mg Tab 250 MG PO Q12HR E. Coli ESBL Days 3 Ref 0 TAB Clonidine 168 HR Patch ([id number] 168 HR Patch) 0.2 Mg/24 Hr Patch 1 PATCH TD Q7D htn Days 30 Ref 0 PATCH Clonidine (Catapres) 0.2 Mg Tab 0.2 MG PO Q6H PRN SBP above 160 Days 30 Ref 0 TAB Fluconazole (Diflucan) 100 Mg Tab 100 MG PO DAILY yeast Days 2 Ref 0 TAB Ipratropium-Albuterol Neb (Duoneb) 0.5-2.5 Mg/3 Ml Neb 1 AMPULE NEB Q6HR PRN SOB, WHEEZE Days 30 ML Continued Medications: Artificial Tears Opth Drops (Genteal Tears Opth Drops) 0.1-0.2-0.3% Soln 1 DROP EACH EYE DAILY DRY EYE #15 ML Escitalopram (Lexapro) 10 Mg Tab 10 MG PO DAILY #30 Ref 0 TAB Lisinopril (Lisinopril) 20 Mg Tab 20 MG PO DAILY #30 Ref 0 TAB Omeprazole (Omeprazole) 20 Mg Tab 20 MG PO BID #30 Ref 0 TAB Oxybutynin (Ditropan) 5 Mg Tab 5 MG PO DAILY Urinary Symptom Managemen #60 Ref 0 TAB Oxycodone-Acetaminophen (Oxycodone-Acetaminophen) 5-325 mg Tab 1 TAB PO Q6H PRN PAIN #30 Ref 0 TAB (This prescription has been renewed) Discontinued Medications: Benzonatate (Benzonatate) 200 Mg Cap 200 MG PO TID PRN COUGH #21 Ref 0 CAP Clonidine (Clonidine) 0.1 Mg Tab 0.1 MG PO DAILY PRN Blood Pressure Management #60 Ref 0 TAB Furosemide (Lasix) 20 Mg Tab 20 MG PO DAILY #30 Ref 0 TAB Gabapentin (Gabapentin) 600 Mg Tab 600 MG PO QID #90 Ref 0 TAB Levofloxacin (Levaquin) 500 Mg Tab 500 MG PO DAILY Infection Days 7 Ref 0 TAB Potassium Chloride ER (Potassium Chloride CR) 10 Meq Tab 10 MEQ PO DAILY TAB Akbar Balderas DO Nov 13, 2016 16:10
== END 2016-11-13 19:00 | DRG 206 ==
LOC: NEPE 19:25 → NEDA 21:06 → HCIS 11-03 01:06 → HIMN 11-07 22:00 → N05A 11-10 17:30
PROVIDERS: ADMIT Hospitalist; ATTEND Hospitalist
PROC: 0DB38ZX Excision of Lower Esophagus, Via Natural or Artificial Opening Endoscopic, Diagnostic (ICD-10-PCS; 2016-11-05)
PROC: 0D738ZZ Dilation of Lower Esophagus, Via Natural or Artificial Opening Endoscopic (ICD-10-PCS; 2016-11-05)
PROC: 3E0G8GC Introduction of Other Therapeutic Substance into Upper GI, Via Natural or Artificial Opening Endoscopic (ICD-10-PCS; 2016-11-05)
PROC: 0DB68ZX Excision of Stomach, Via Natural or Artificial Opening Endoscopic, Diagnostic (ICD-10-PCS; principal; 2016-11-05 12:40)
DX: T17.820A Food in other parts of respiratory tract causing asphyxiation, initial encounter (principal); K22.0 Achalasia of cardia; B37.81 Candidal esophagitis; N30.00 Acute cystitis without hematuria; K22.2 Esophageal obstruction; R13.10 Dysphagia, unspecified; J98.01 Acute bronchospasm; J06.9 Acute upper respiratory infection, unspecified; I44.7 Left bundle-branch block, unspecified; I10 Essential (primary) hypertension; K21.9 Gastro-esophageal reflux disease without esophagitis; G47.33 Obstructive sleep apnea (adult) (pediatric); F41.9 Anxiety disorder, unspecified; G89.29 Other chronic pain; K29.60 Other gastritis without bleeding; K44.9 Diaphragmatic hernia without obstruction or gangrene; M19.90 Unspecified osteoarthritis, unspecified site; M48.00 Spinal stenosis, site unspecified; H91.90 Unspecified hearing loss, unspecified ear; B96.20 Unspecified Escherichia coli [E. coli] as the cause of diseases classified elsewhere; F32.9 Major depressive disorder, single episode, unspecified; Z16.12 Extended spectrum beta lactamase (ESBL) resistance; Z23 Encounter for immunization; Z86.73 Personal history of transient ischemic attack (TIA), and cerebral infarction without residual deficits
CPT/HCPCS: 71010; 71275; 74230; 76937; 78452; 80048; 80053; 81001; 82550; 82948; 83735; 83880; 84478; 84484; 85025; 85027; 85610; 85730; 87077; 87086; 87186; 87641; 87804; 88305; 88312; 90732; 93005; 93017; 93306; 94640; 94664; 96374; A9502; C1769; C9113; J0131; J0360; J0585; J0696; J0744; J1335; J1450; J1644; J2270; J2405; J2785; J2920; J3480; J7042; J7050; J7512; Q9967

== ENCOUNTER 2016-12-28 15:39 | Inpatient (IN) | payer MEDICARE ==
[~2016-12-28] VITALS: Ht 154.9 cm; Wt 75.0 kg
[~2016-12-28 15:39] MED LIST changes: +ARTI1SOL3 EACH EYE; -BENZ1CAP34 PO; -CALTTAB PO; -CARB0.5D16 EACH EYE; +CIPR250T52 PO; -CLON.1 PO; +CLON.2 PO; +CLON.2T TD; +DIFL100T PO; -DOCU1CAP39 PO; -FERR324T4 PO; -FURO20 PO; +GABA100C4 PO; -GABA600T PO; +IPRASOL NEB; -K-TA10TA5 PO; -LEVA500T PO; +LISI-515 PO; -LISI-591 PO; +NIFE1TAB85 PO; +OMEP20TA PO; +OXYB5TAB10 PO; -OXYB5TAB33 PO; +OXYC1TAB63 PO; -PERC5TAB12 PO; -PRIL20CA PO
[2016-12-28 16:14] VITALS: BP 150/79; PULSE 115; RESP 22; TEMP 98.5; O2SAT 99
--- NOTE | 2016-12-28 16:43 | PD ---
HPI Chief Complaint: Fever Time Seen by Provider: 16:39 Travel History International Travel<30 days: No Contact w/Intl Traveler<30days: No Traveled to known affect area: No History of Present Illness HPI 80-year-old female that presents to the ED for evaluation of shortness of breath. Patient came here by moves for evaluation of this. Patient states that today she had an episode where she couldn't catch her breath. She was put on oxygen and this improved but she still feels short of breath. She has no history of CHF or COPD but was recently admitted for similar episode. She denies any chest pain or any pain of any kind. No fevers chills or sweats. She was found to be tachycardic. She states that this only started today. History is somewhat limited as patient does appear to be somewhat of a poor historian. Most of the history is obtained from ED nurse and even back here patient denies any diarrhea. No cough or runny nose. Patient currently on oxygen and feels somewhat better was still short of breath. She was recently admitted about a month ago for similar. PFSH Past Medical History Arthritis: Yes Asthma: No Anxiety: No Depression: Yes Heart Rhythm Problems: No Cancer: No Cardiovascular Problems: Yes High Cholesterol: No Chemotherapy: No Chest Pain: No Congestive Heart Failure: No COPD: No Cerebrovascular Accident: No Diabetes: No Diminished Hearing: Yes Endocrine: No Gastrointestinal Disorders: Yes (ESOPHAGEAL DIL/ BOTOX, GERD, CONSTIPATION) GERD: No Genitourinary: Yes (Incontinence) Headaches: No Hepatitis: No Hiatal Hernia: Yes Heparin Induced Thrombocytopen: No Hypertension: Yes Immune Disorder: No Implanted Vascular Access Dvce: Yes Kidney Stones: No Musculoskeletal: Yes (Neuropathy, spinal stenosis, osteoporosis) Neurologic: Yes (TIA) Psychiatric: Yes (Claustrophobia) Reproductive: No Respiratory: Yes Migraines: No Radiation Therapy: No Renal Failure: No Seizures: No Sickle Cell Disease: No Sleep Apnea: Yes Thyroid Disease: No Ulcer: Yes : 6 Para: 6 Past Surgical History Abdominal Surgery: Yes (Cholecystecomy, insertion nerve stimulator (abdomen)) AICD: No Arteriovenous Shunt: No Body Medical Devices: Abdomen stimulator, cochlear implant Cardiac Surgery: No Cholecystectomy: Yes Ear Surgery: Yes (Cochlear left eat implant) Endocrine Surgery: No Eye Surgery: No Genitourinary Surgery: No Gynecologic Surgery: Yes (Hysterectomy) Hysterectomy: Yes Insulin Pump: No Joint Replacement: No Neurologic Surgery: No Oral Surgery: No Pacemaker: No Thoracic Surgery: No Other Surgery: Yes Social History Alcohol Use: No Tobacco Use: No Substance Use: No Allergies-Medications (Allergen,Severity, Reaction): Coded Allergies: Cymbalta (Unverified Adverse Reaction, Severe, NAUSEA, 11/02/16) Sinemet 10/100 (Unverified Adverse Reaction, Severe, HYPERTENSIOIN, LETHARGY, 11/02/16) *MDRO Multi-Drug Resistant Organism (Verified Adverse Reaction, Unknown, ) ESBL k.Pneumoniae (urine)-11/02/16 Reported Meds & Prescriptions Reported Meds & Active Scripts Active Procardia XL (Nifedipine) 30 Mg Tab 30 Mg PO DAILY HOLD FOR SBP BELOW 130 Duoneb (Ipratropium-Albuterol Neb) 0.5-2.5 Mg/3 Ml Neb 1 Ampule NEB Q6HR PRN 30 Days Diflucan (Fluconazole) 100 Mg Tab 100 Mg PO DAILY 2 Days Catapres (Clonidine) 0.2 Mg Tab 0.2 Mg PO Q6H PRN 30 Days [id number]-Vtp-3 168 HR Patch (Clonidine) 0.2 Mg/24 Hr Patch 1 Patch TD Q7D 30 Days Cipro (Ciprofloxacin HCl) 250 Mg Tab 250 Mg PO Q12HR 3 Days Gabapentin 100 Mg Cap 100 Mg PO TID 30 Days Oxycodone-Acetaminophen 5-325 mg Tab 1 Tab PO Q6H PRN Reported Ditropan (Oxybutynin Chloride) 5 Mg Tab 5 Mg PO DAILY Omeprazole 20 Mg Tab 20 Mg PO BID Lisinopril 20 Mg Tab 20 Mg PO DAILY Lexapro (Escitalopram Oxalate) 10 Mg Tab 10 Mg PO DAILY Genteal Tears Opth Drops (Artificial Tears Opth Drops) 0.1-0.2-0.3% Soln 1 Drop EACH EYE DAILY Review of Systems Except as stated in HPI: all other systems reviewed are Neg Physical Exam Narrative GENERAL: SKIN: Warm and dry. HEAD: Atraumatic. Normocephalic. EYES: Pupils equal and round 4 mm reactive to light and accommodation. No scleral icterus. No injection or drainage. ENT: No nasal bleeding or discharge. Mucous membranes pink and moist. Tongue is midline. No uvula deviation. NECK: Trachea midline. No JVD. CARDIOVASCULAR: Regular rate and rhythm. No murmurs, S3, S4. RESPIRATORY: No accessory muscle use. Clear to auscultation. Breath sounds equal bilaterally. GASTROINTESTINAL: Abdomen soft, non-tender, nondistended. Hepatic and splenic margins not palpable. MUSCULOSKELETAL: Extremities without clubbing, cyanosis, or edema. No obvious deformities. Full range of motion of the upper and lower extremities bilaterally. 2+ pulses bilaterally. NEUROLOGICAL: Awake and alert. No obvious cranial nerve deficits. Motor grossly within normal limits. Five out of 5 muscle strength in the arms and legs. Normal speech. PSYCHIATRIC: Appropriate mood and affect; insight and judgment normal. Data Data Last Documented VS Vital Signs Date Time Temp Pulse Resp B/P Pulse Ox O2 Delivery O2 Flow Rate FiO2 12/28/16 17:11 99 Nasal Cannula 3.00 12/28/16 16:14 98.5 115 22 150/79 Orders Electrocardiogram (12/28/16 16:32) Complete Blood Count With Diff (12/28/16 16:32) Comprehensive Metabolic Panel (12/28/16 16:32) Ckmb (Isoenzyme) Profile (12/28/16 16:32) Troponin I (12/28/16 16:32) Prothrombin Time / Inr (Pt) (12/28/16 16:32) Act Partial Throm Time (Ptt) (12/28/16 16:32) Urinalysis - C+S If Indicated (12/28/16 16:32) Cath For Specimen (12/28/16 16:32) Thyroid Stimulating Hormone (12/28/16 16:32) Chest, Single Ap (12/28/16 16:32) Iv Access Insert/Monitor (12/28/16 16:32) Ecg Monitoring (12/28/16 16:32) Oximetry (12/28/16 16:32) B-Type Natriuretic Peptide (12/28/16 16:38) Albuterol Neb (Albuterol Neb) (12/28/16 16:45) Blood Culture (12/28/16 17:38) Lactic Acid (12/28/16 17:38) Sodium Chlor 0.9% 1000 Ml Inj (Ns 1000 M (12/28/16 17:44) Azithromycin Inj (Zithromax Inj) (12/28/16 18:30) Ceftriaxone Inj (Rocephin Inj) (12/28/16 18:30) Admit Order (Ed Use Only) (12/28/16 18:29) Labs Laboratory Tests Test 12/28/16 12/28/16 17:00 18:00 White Blood Count 15.2 TH/MM3 Red Blood Count 4.68 MIL/MM3 Hemoglobin 13.3 GM/DL Hematocrit 42.5 % Mean Corpuscular Volume 90.8 FL Mean Corpuscular Hemoglobin 28.5 PG Mean Corpuscular Hemoglobin 31.3 % Concent Red Cell Distribution Width 14.1 % Platelet Count 283 TH/MM3 Mean Platelet Volume 10.7 FL Neutrophils (%) (Auto) 80.8 % Lymphocytes (%) (Auto) 10.3 % Monocytes (%) (Auto) 8.1 % Eosinophils (%) (Auto) 0.2 % Basophils (%) (Auto) 0.6 % Neutrophils # (Auto) 12.2 TH/MM3 Lymphocytes # (Auto) 1.6 TH/MM3 Monocytes # (Auto) 1.2 TH/MM3 Eosinophils # (Auto) 0.0 TH/MM3 Basophils # (Auto) 0.1 TH/MM3 CBC Comment DIFF FINAL Differential Comment Prothrombin Time 11.1 SEC Prothromb Time International 1.0 RATIO Ratio Activated Partial 22.6 SEC Thromboplast Time Sodium Level 139 MEQ/L Potassium Level 4.4 MEQ/L Chloride Level 104 MEQ/L Carbon Dioxide Level 25.8 MEQ/L Anion Gap 9 MEQ/L Blood Urea Nitrogen 7 MG/DL Creatinine 0.55 MG/DL Estimat Glomerular Filtration 128 ML/MIN Rate Random Glucose 93 MG/DL Calcium Level 8.6 MG/DL Total Bilirubin 0.4 MG/DL Aspartate Amino Transf 40 U/L (AST/SGOT) Alanine Aminotransferase 48 U/L (ALT/SGPT) Alkaline Phosphatase 229 U/L Total Creatine Kinase 94 U/L Troponin I LESS THAN 0.02 NG/ML Total Protein 7.2 GM/DL Albumin 2.6 GM/DL Thyroid Stimulating Hormone 1.510 uIU/ML 3rd Gen Lactic Acid Level 1.4 mmol/L MDM Medical Decision Making Medical Screen Exam Complete: Yes Emergency Medical Condition: Yes Medical Record Reviewed: Yes Interpretation(s) Last Impressions Chest X-Ray 12/28/16 1632 Signed Impressions: Service Date/Time: Wednesday, December 28, 2016 16:47 - CONCLUSION: No acute disease. No significant change has occurred. Alex White MD CBC & BMP Diagram 12/28/16 17:00 troponin negative EKG shows sinus tachycardia with no sign of acute ishemia or arrhythmia. Read by me and attending Differential Diagnosis Dyspnea versus CHF versus PE versus sepsis versus atrial fibrillation versus tachycardia Narrative Course 81-year-old female that presents to the ED for evaluation of shortness of breath. Patient was properly examined and was found to have signs and symptoms of unclear etiology at this time. Patient unsure of breath but has no pain. No obvious sign of acute disease other than tachycardia. At this time I recommend labs and imaging. Labs and imaging were positive for leukocytosis an active infection. No sign of pneumonia at this time but there is concern for it. Troponin and EKG were essentially unremarkable except for tachycardia. Patient does appear to have sepsis at this time. The recommend admission for IV antibiotics for possible pneumonia. This was discussed with my attending who agrees with plan. Dr. Fernandez was contacted who agrees with admission. Sepsis Criteria SIRS Criteria (2 or more): Heart rate over 90, WBC > 67814, < 4000 or > 10% bands Sepsis Criteria (SIRS+source): Infect source susp/known Diagnosis Primary Impression: Leukocytosis Qualified Code: D72.825 - Bandemia Additional Impression: Pneumonia Qualified Code: J18.9 - Pneumonia due to infectious organism, unspecified laterality, unspecified part of lung Admitting Information Admitting Physician Requests: Observation Uzair Schmidt December 28, 2016 16:43
[2016-12-28] MEDS ORDERED: RESP: ALBUTEROL 2.5 MG/3 ML NEB (SCH) INH ONE (16:45)
--- NOTE | 2016-12-28 16:53 | RADRPT ---
EXAM DATE/TIME: 12/28/2016 16:47 [facility] COMPARISON: CHEST SINGLE AP, November 02, 2016, 19:43. INDICATIONS : Shortness of breath. MEDICAL HISTORY : Hypertension. Cerebrovascular disease. Sleep apnea. SURGICAL HISTORY : Left shoulder repair. Spinal stimulator. ENCOUNTER: Initial ACUITY: 1 day PAIN SCORE: Non-responsive. LOCATION: Bilateral chest FINDINGS: A single view of the chest demonstrates the lungs to be symmetrically aerated without evidence of mas s, infiltrate or effusion. The cardiomediastinal contours are unremarkable. Osseous structures are intact. There is a stable spinal catheter projected over the mid thoracic spine. There is evidence of previous internal fixation of the left humerus. No significant changes. CONCLUSION: No acute disease. No significant change has occurred. Alex White MD on December 28, 2016 at 16:50 Board Certified Radiologist. This report was verified electronically.
[2016-12-28 17:11] VITALS: O2SAT 99
[2016-12-28 17:32] LABS: AUTOMATED NEUTROPHIL # 12.2 TH/MM3 (1.8-7.7); BASOPHIL # 0.1 TH/MM3 (0-0.2); BASOPHIL % 0.6 % (0.0-2.0); EOSINOPHIL % 0.2 % (0.0-4.0); HEMATOCRIT 42.5 % (35.0-46.0); HEMO FLAGS DIFF FINAL; LYMPH % 10.3 % (9.0-44.0); LYMPHOCYTE # 1.6 TH/MM3 (1.0-4.8); MEAN CELL VOLUME 90.8 FL (80.0-100.0); MEAN CORPUSCULAR HEMOGLOBIN 28.5 PG (27.0-34.0); MEAN CORPUSCULAR HGB CONC 31.3 % (32.0-36.0); MONO % 8.1 % (0.0-8.0); NEUT % 80.8 % (16.0-70.0); PLATELET COUNT 283 TH/MM3 (150-450); RED BLOOD COUNT 4.68 MIL/MM3 (4.00-5.30); RED CELL DISTRIBUTION WIDTH 14.1 % (11.6-17.2); WHITE BLOOD COUNT 15.2 TH/MM3 (4.0-11.0)
[2016-12-28] MEDS ORDERED: SODIUM CHLOR 0.9% 1000 ML INJ 1,000 ML IV SCH (17:44)
[2016-12-28 17:45] LABS: APTT (PATIENT) 22.6 SEC (24.3-30.1); PROTHROMBIN TIME - PATIENT 11.1 SEC (9.8-11.6)
[2016-12-28 17:56] LABS: ALKALINE PHOSPHATASE 229 U/L (45-117); ALT (GPT) 48 U/L (10-53); ANION GAP 9 MEQ/L (5-15); AST (GOT) 40 U/L (15-37); BICARBONATE 25.8 MEQ/L (21.0-32.0); BLOOD UREA NITROGEN 7 MG/DL (7-18); CHLORIDE 104 MEQ/L (98-107); CREATINE KINASE 94 U/L (26-192); GLOMERULAR FILTRATION RATE 128 ML/MIN (>89); POTASSIUM 4.4 MEQ/L (3.5-5.1); SODIUM (NA) 139 MEQ/L (136-145); TOTAL BILIRUBIN ADULT 0.4 MG/DL (0.2-1.0)
[2016-12-28] MEDS ORDERED: AZITHROMYCIN INJ 500 MG in SODIUM CHLOR 0.9% 250 ML INJ 250 ML IV ONE (18:30)
[2016-12-28] MEDS ORDERED: cefTRIAXone INJ 1,000 MG in SODIUM CHLORIDE 0.9% INJ 100 ML IV ONE (18:30)
[2016-12-28 19:05] LABS: BACTERIA, URINE RARE /hpf; BLOOD, URINE SMALL (NEG); COMMENT (UR) CULTURE INDICATED; CULTURE IF INDICATED CULTURE INDICATED; GLUCOSE,URINE NEG (NEG); KETONE, URINE TRACE mg/dL (NEG); MUCUS URINE MOD /lpf (OCC); NITRITE,URINE NEG (NEG); PH, URINE 5.5 (5.0-8.5); SQUAMOUS EPITHELIAL CELL URINE 2 /hpf (0-5); URINE COLOR YELLOW (YELLW/STRAW)
[2016-12-28 19:46] VITALS: BP 171/76; PULSE 109; RESP 20; O2SAT 99
--- NOTE | 2016-12-28 20:11 | HHI.HP ---
HPI Service [facility] Hospitalists Primary Care Physician Rosendo Dougherty Admission Diagnosis dyspnea, leukocytosis, CAP Chief Complaint: sob, sinus and chest congestion x 2 weeks Travel History International Travel<30 Days: No Contact w/Intl Traveler <30 Da: No Traveled to Known Affected Are: No History of Present Illness 80-year-old female with hypertension, hyperlipidemia, pulmonary hypertension and Parkinson's that presents to the ED for evaluation of shortness of breath. She is quite hard of hearing and much of the history is gathered from her daughter who is present during the exam. Patient states that today she had an episode where she couldn't catch her breath. She was put on oxygen and this improved but she still feels short of breath. When I asked her what she means by this she reportedly states that she doesn't feel like she can breathe through her nose. She reports actually had this for 2 weeks but worse over the last couple of days now accompanied by cough which is minimally productive of phlegm. She has no history of CHF or COPD but was recently admitted for similar episode. She denies any chest pain or any pain of any kind. No fevers chills or sweats. She was found to be tachycardic and remained slightly so. No cough or runny nose. Patient currently on oxygen and feels somewhat better was still a little short of breath. She was admitted in late October for dyspnea and dysphagia. She had an echo done at that time which revealed an EF of 55% with slightly elevated pulmonary pressure of 45 mmHg Review of Systems Constitutional: COMPLAINS OF: Fatigue Eyes: DENIES: Blurred vision, Diplopia, Eye inflammation, Eye pain, Vision loss , Photosensitivity, Double Vision Ears, nose, mouth, throat: COMPLAINS OF: Hearing loss, Nasal discharge, Sinus Pain Respiratory: COMPLAINS OF: Cough, Sputum production, Shortness of breath, DENIES: Apneas, Snoring, Wheezing, Hemoptysis Cardiovascular: DENIES: Chest pain, Palpitations, Syncope, Dyspnea on Exertion , PND, Lower Extremity Edema, Orthopnea, Claudication Gastrointestinal: DENIES: Abdominal pain, Black stools, Bloody stools, BRB per rectum, Constipation, Diarrhea, GERD, Nausea, Reflux, Vomiting, Difficulty Swallowing, Anorexia, See HPI Musculoskeletal: COMPLAINS OF: Joint pain Hematologic/lymphatic: DENIES: Bruising, Lymphadenopathy Immunologic/allergic: DENIES: Eczema, Urticaria Neurologic: COMPLAINS OF: Abnormal gait Past Family Social History Past Medical History HTN Spinal stenosis GERD LVH SIL on CPAP at night Depression Chronic back pain Dysphagia Parkinson syndrome Hard of hearing 2D echo (10/2016): - LV with mild concentric hypertrophy - EF 55-60% - Diastolic dysfunction -Pulmonary artery pressure of 45 mmHg Past Surgical History ORIF of left arm fracture 04/27/15 Cholecystectomy BRIAN with BSO L3-5 laminectomy/microdiskectomy Cochlear implant EGD with dilatation Negative Lexiscan nuclear test October 2016 Reported Medications Procardia XL (Nifedipine) 30 Mg Tab 30 Mg PO DAILY HOLD FOR SBP BELOW 130 Duoneb (Ipratropium-Albuterol Neb) 0.5-2.5 Mg/3 Ml Neb 1 Ampule NEB Q6HR PRN 30 Days Diflucan (Fluconazole) 100 Mg Tab 100 Mg PO DAILY 2 Days Catapres (Clonidine) 0.2 Mg Tab 0.2 Mg PO Q6H PRN 30 Days [id number]-1 168 HR Patch (Clonidine) 0.2 Mg/24 Hr Patch 1 Patch TD Q7D 30 Days Cipro (Ciprofloxacin HCl) 250 Mg Tab 250 Mg PO Q12HR 3 Days Gabapentin 100 Mg Cap 100 Mg PO TID 30 Days Oxycodone-Acetaminophen 5-325 mg Tab 1 Tab PO Q6H PRN Ditropan (Oxybutynin Chloride) 5 Mg Tab 5 Mg PO DAILY Omeprazole 20 Mg Tab 20 Mg PO BID Lisinopril 20 Mg Tab 20 Mg PO DAILY Lexapro (Escitalopram Oxalate) 10 Mg Tab 10 Mg PO DAILY Genteal Tears Opth Drops (Artificial Tears Opth Drops) 0.1-0.2-0.3% Soln 1 Drop EACH EYE DAILY Allergies: Coded Allergies: Cymbalta (Unverified Adverse Reaction, Severe, NAUSEA, 11/02/16) Sinemet 10/100 (Unverified Adverse Reaction, Severe, HYPERTENSIOIN, LETHARGY, 11/02/16) *MDRO Multi-Drug Resistant Organism (Verified Adverse Reaction, Unknown, ) ESBL k.Pneumoniae (urine)-11/02/16 Family History Noncontributory Social History She grew up in [facility] but has spent most of her life locally She lives at home and family provides 24 7 around the clock care No tobacco, alcohol or illicit drugs 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 Hard of hearing. SKIN: No rashes, ecchymoses or lesions. Cool and dry. HEAD: Atraumatic. Normocephalic. No temporal or scalp tenderness. EYES: Pupils equal round and reactive. Extraocular motions intact. No scleral icterus. No injection or drainage. ENT: Nose without bleeding. Thick nasal discharge noted with inferior turbinate inflammatory changes. Slight tenderness to palpation over maxillary sinuses. Airway patent. NECK: Trachea midline. No JVD or lymphadenopathy. Supple, nontender, no meningeal signs. CARDIOVASCULAR: Regular rate and rhythm with 2/6 systolic ejection murmur noted in the left sternal border. No rubs RESPIRATORY: Clear to auscultation. Breath sounds equal bilaterally with somewhat diminished breath sounds at bases. Fair air movement. No wheezes, rales, or rhonchi. GASTROINTESTINAL: Abdomen soft, non-tender, nondistended. No hepato-splenomegaly , or palpable masses. No guarding. MUSCULOSKELETAL: Extremities without clubbing, cyanosis, or edema. No calf tenderness. NEUROLOGICAL: Awake and alert. Cranial nerves II through XII intact. Motor and sensory grossly within normal limits. Five out of 5 muscle strength in all muscle groups. Normal speech. Laboratory Laboratory Tests Test 12/28/16 12/28/16 12/28/16 17:00 18:00 18:25 White Blood Count 15.2 Red Blood Count 4.68 Hemoglobin 13.3 Hematocrit 42.5 Mean Corpuscular Volume 90.8 Mean Corpuscular Hemoglobin 28.5 Mean Corpuscular Hemoglobin 31.3 Concent Red Cell Distribution Width 14.1 Platelet Count 283 Mean Platelet Volume 10.7 Neutrophils (%) (Auto) 80.8 Lymphocytes (%) (Auto) 10.3 Monocytes (%) (Auto) 8.1 Eosinophils (%) (Auto) 0.2 Basophils (%) (Auto) 0.6 Neutrophils # (Auto) 12.2 Lymphocytes # (Auto) 1.6 Monocytes # (Auto) 1.2 Eosinophils # (Auto) 0.0 Basophils # (Auto) 0.1 CBC Comment DIFF FINAL Differential Comment Prothrombin Time 11.1 Prothromb Time International 1.0 Ratio Activated Partial 22.6 Thromboplast Time Sodium Level 139 Potassium Level 4.4 Chloride Level 104 Carbon Dioxide Level 25.8 Anion Gap 9 Blood Urea Nitrogen 7 Creatinine 0.55 Estimat Glomerular Filtration 128 Rate Random Glucose 93 Calcium Level 8.6 Total Bilirubin 0.4 Aspartate Amino Transf 40 (AST/SGOT) Alanine Aminotransferase 48 (ALT/SGPT) Alkaline Phosphatase 229 Total Creatine Kinase 94 Troponin I LESS THAN 0.02 Total Protein 7.2 Albumin 2.6 Thyroid Stimulating Hormone 1.510 3rd Gen Lactic Acid Level 1.4 Urine Color YELLOW Urine Turbidity HAZY Urine pH 5.5 Urine Specific Bruno 1.028 Urine Protein 30 Urine Glucose (UA) NEG Urine Ketones TRACE Urine Occult Blood SMALL Urine Nitrite NEG Urine Bilirubin NEG Urine Urobilinogen LESS THAN 2.0 Urine Leukocyte Esterase TRACE Urine RBC 8 Urine WBC 8 Urine Squamous Epithelial 2 Cells Urine Bacteria RARE Urine Mucus MOD Urine Yeast (Budding) MOD Microscopic Urinalysis Comment CULTURE INDICATED Date/Time Procedure Status Source Growth 12/28/16 18:25 Urine Culture Received Urine Clean Catch Pending 12/28/16 18:00 Aerobic Blood Culture Received Blood Peripheral Pending 12/28/16 18:00 Anaerobic Blood Culture Received Blood Peripheral Pending Result Diagram: 12/28/16 1700 12/28/16 1700 Imaging Last 72 hours Impressions Chest X-Ray 12/28/16 1632 Signed Impressions: Service Date/Time: Wednesday, December 28, 2016 16:47 - CONCLUSION: No acute disease. No significant change has occurred. Alex White MD Assessment and Plan Problem List: (1) Dyspnea Status: Acute Plan: Somewhat recurrent issue. Patient does not appear in respiratory distress and her lungs are relatively clear on exam. She likely has some underlying bronchitis and sinusitis contributing to her sensation of dyspnea. Provide antibiotics and one-time dose of steroids as well as supplemental oxygen with nebulizers. (2) Bronchitis Status: Acute Plan: As above. (3) Sinusitis Status: Acute Plan: Provide Flonase, one time dose of steroid and antibiotics. Advised patient to use Flonase as an outpatient regularly and Smiley as needed. (4) Hypertension Status: Chronic Plan: Continue home medication (5) Chronic back pain Status: Chronic Plan: Continue medication Discussed Condition With Patient, her daughter and ER healthcare provider Problem Qualifiers (1) Hypertension: Qualified Code: I10 - Essential hypertension (2) Chronic back pain: Mitchell Fernandez MD PhD December 28, 2016 20:11
[2016-12-28] MEDS ORDERED: methylPREDNISolone SOD SUCC 40 MG/1 ML VIAL IV PUSH ONE (20:15)
[2016-12-28] MEDS ORDERED: SODIUM CHLORID 0.9% 500 ML INJ 500 ML IV SCH (20:15)
[2016-12-28] MEDS ORDERED: RESP: ALBUTEROL 2.5 MG/IPRATROPIUM 0.5 MG NEB (PRN) NEB (20:30)
[2016-12-28] MEDS: FLUTICASONE PROPIONATE 50 MCG/ACT 16 GM NASAL SPRAY NASAL SCH ×2 (21:00→23:28)
[2016-12-28] MEDS ORDERED: NON-FORMULARY DRUG (Omeprazole 20 MG) PO SCH (21:00)
[2016-12-28] MEDS: PANTOPRAZOLE SOD 20 MG DELAYED RELEASE TAB PO SCH (21:48)
[2016-12-28 21:49] VITALS: BP 180/77; PULSE 108; RESP 16; O2SAT 100
[2016-12-28] MEDS: cloNIDine HCL 0.2 MG TAB PO PRN (21:49)
[2016-12-28] MEDS ORDERED: FLOR250C PO (21:58)
[2016-12-28 22:52] VITALS: BP 118/58; PULSE 104; RESP 18; TEMP 99; O2SAT 97
[2016-12-28] MEDS: oxyCODONE/ACETAMINOPHEN 5 MG/325 MG TAB PO PRN (23:28)
[2016-12-29] VITALS (8 sets, daily range): BP systolic 119–162; BP diastolic 58–71; PULSE 94–107; RESP 15–20; TEMP 98.3–99.8; O2SAT 95–100
[2016-12-29] MEDS: oxyCODONE/ACETAMINOPHEN 5 MG/325 MG TAB PO PRN ×2 (07:49→18:05)
[2016-12-29] MEDS ORDERED: AZITHROMYCIN 250 MG TAB PO SCH (09:00)
[2016-12-29] MEDS ORDERED: cefTRIAXone INJ 1,000 MG in SODIUM CHLORIDE 0.9% INJ 100 ML IV ONE (09:00)
[2016-12-29] MEDS ORDERED: [UNRECOGNIZED DRUG - OTHER] EACH EYE SCH (09:00)
[2016-12-29] MEDS: ARTIFICIAL TEARS OPTH SOLN 15 ML BTL EACH EYE SCH ×2 (09:00→17:52)
--- NOTE | 2016-12-29 09:37 | HHI.PR ---
Subjective Remarks Pt reports that she feels better this morning. She feels like she needs oxygen at home. Pts nurse reports that the pt had significant dysphagia this morning when trying to take one pill in applesauce and regurgitated it back up. Objective Vitals Vital Signs Date Time Temp Pulse Resp B/P Pulse Ox O2 Delivery O2 Flow Rate FiO2 12/29/16 07:33 98.3 107 16 148/67 100 12/29/16 05:10 99.2 94 18 121/60 98 12/29/16 03:20 95 Nasal Cannula 2.00 12/29/16 00:17 101 18 119/58 97 12/28/16 22:52 99.0 104 18 118/58 97 12/28/16 21:49 108 16 180/77 100 Nasal Cannula 2 12/28/16 19:46 109 20 171/76 99 Nasal Cannula 2 12/28/16 17:11 99 Nasal Cannula 3.00 12/28/16 16:14 98.5 115 22 150/79 99 Nasal Cannula 2 12/28/16 12/28/16 12/29/16 15:00 23:00 07:00 Intake Total 777 ml Balance 777 ml Intake IV Total 777 ml Result Diagram: 12/28/16 1700 12/28/16 1700 Other Results Laboratory Tests Test 12/28/16 12/28/16 12/28/16 17:00 18:00 18:25 White Blood Count 15.2 TH/MM3 Red Blood Count 4.68 MIL/MM3 Hemoglobin 13.3 GM/DL Hematocrit 42.5 % Mean Corpuscular Volume 90.8 FL Mean Corpuscular Hemoglobin 28.5 PG Mean Corpuscular Hemoglobin 31.3 % Concent Red Cell Distribution Width 14.1 % Platelet Count 283 TH/MM3 Mean Platelet Volume 10.7 FL Neutrophils (%) (Auto) 80.8 % Lymphocytes (%) (Auto) 10.3 % Monocytes (%) (Auto) 8.1 % Eosinophils (%) (Auto) 0.2 % Basophils (%) (Auto) 0.6 % Neutrophils # (Auto) 12.2 TH/MM3 Lymphocytes # (Auto) 1.6 TH/MM3 Monocytes # (Auto) 1.2 TH/MM3 Eosinophils # (Auto) 0.0 TH/MM3 Basophils # (Auto) 0.1 TH/MM3 CBC Comment DIFF FINAL Differential Comment Prothrombin Time 11.1 SEC Prothromb Time International 1.0 RATIO Ratio Activated Partial 22.6 SEC Thromboplast Time Sodium Level 139 MEQ/L Potassium Level 4.4 MEQ/L Chloride Level 104 MEQ/L Carbon Dioxide Level 25.8 MEQ/L Anion Gap 9 MEQ/L Blood Urea Nitrogen 7 MG/DL Creatinine 0.55 MG/DL Estimat Glomerular Filtration 128 ML/MIN Rate Random Glucose 93 MG/DL Calcium Level 8.6 MG/DL Total Bilirubin 0.4 MG/DL Aspartate Amino Transf 40 U/L (AST/SGOT) Alanine Aminotransferase 48 U/L (ALT/SGPT) Alkaline Phosphatase 229 U/L Total Creatine Kinase 94 U/L Troponin I LESS THAN 0.02 NG/ML Total Protein 7.2 GM/DL Albumin 2.6 GM/DL Thyroid Stimulating Hormone 1.510 uIU/ML 3rd Gen B-Type Natriuretic Peptide 69 PG/ML Lactic Acid Level 1.4 mmol/L Urine Color YELLOW Urine Turbidity HAZY Urine pH 5.5 Urine Specific [place] 1.028 Urine Protein 30 mg/dL Urine Glucose (UA) NEG mg/dL Urine Ketones TRACE mg/dL Urine Occult Blood SMALL Urine Nitrite NEG Urine Bilirubin NEG Urine Urobilinogen LESS THAN 2.0 MG/DL Urine Leukocyte Esterase TRACE Urine RBC 8 /hpf Urine WBC 8 /hpf Urine Squamous Epithelial 2 /hpf Cells Urine Bacteria RARE /hpf Urine Mucus MOD /lpf Urine Yeast (Budding) MOD Microscopic Urinalysis Comment CULTURE INDICATED Imaging Last 72 hours Impressions Chest X-Ray 12/28/16 1632 Signed Impressions: Service Date/Time: Wednesday, December 28, 2016 16:47 - CONCLUSION: No acute disease. No significant change has occurred. Alex White MD Objective Remarks General: NAD, AAOx3 Chest: CTA Cardiac: Irregular, tachy Abd: +BS, soft, NT/ND Ext: No edema A/P Problem List: (1) Dyspnea Status: Acute Plan: - Pt was admitted with worsening dyspnea, described more as a a feeling of being unable to catch her breath/breath out of her nose. - Patient does not appear in respiratory distress and her lungs are relatively clear on exam. - At admission it was felt that she likely has some underlying bronchitis and sinusitis contributing to her sensation of dyspnea. - She has no hx of CHF or COPD. - Pt was previously admitted in 10/2016 with similar symptoms and was found to be aspirating. Pt has hx of esophageal strictures and dysphagia. - She had an EGD on 11/05/16 --> oral and esophageal jr and was injected distally with Botox. - She states that she has not had any dysphagia at home but for the last week or so she has felt very full with eating minimal food. - CXR with no acute disease - Pt was given a dose of Solu-Medrol at admission and was continued on antibiotics, supplemental oxygen and PRN nebulizers. - Pt feels like she needs oxygen at home. - Her HR is slightly elevated and irregular on exam - Place pt on Telemetry this morning. - ST evaluation for swallow testing, nurse reports that the pt had difficulty with taking a pill in applesauce this morning and regurgitated it back up. - Previous MBS in 10/2016 noted aspiration with both liquid and honey thickened barium contrast consistencies so I will change current diet to previous recommendations until pt is seen by ST. - Pt is likely chronically aspirating. - During previous admission family did not want PEG tube placed. (2) Sinusitis Status: Acute Plan: - Pt provide with Flonase at admission - She is being given antibiotics and she received one dose of steroids at admission. (3) Hypertension Status: Chronic Plan: - Continue home medication (4) Chronic back pain Status: Chronic Plan: - Continue medication Assessment and Plan Patient examined. Assessment and plan formulated with Gosia Lemos PA-C. I agree with the above concern for recurrent aspiration. modify diet. walk test for o2. Problem Qualifiers (1) Hypertension: Qualified Code: I10 - Essential hypertension (2) Chronic back pain: Gosia Lemos December 29, 2016 09:37 Sanford Vee MD December 29, 2016 14:37
[2016-12-29 09:44] LABS: AUTOMATED NEUTROPHIL # 18.4 TH/MM3 (1.8-7.7); BASOPHIL % 0.2 % (0.0-2.0); HEMATOCRIT 40.3 % (35.0-46.0); HEMO FLAGS DIFF FINAL; LYMPH % 7.1 % (9.0-44.0); LYMPHOCYTE # 1.4 TH/MM3 (1.0-4.8); MEAN CELL VOLUME 91.1 FL (80.0-100.0); MEAN CORPUSCULAR HEMOGLOBIN 29.2 PG (27.0-34.0); MONO % 2.3 % (0.0-8.0); NEUT % 90.4 % (16.0-70.0); PLATELET COUNT 280 TH/MM3 (150-450); RED BLOOD COUNT 4.43 MIL/MM3 (4.00-5.30); WHITE BLOOD COUNT 20.3 TH/MM3 (4.0-11.0)
[2016-12-29 09:54] LABS: ALKALINE PHOSPHATASE 216 U/L (45-117); ALT (GPT) 45 U/L (10-53); ANION GAP 10 MEQ/L (5-15); AST (GOT) 25 U/L (15-37); BICARBONATE 23.7 MEQ/L (21.0-32.0); BLOOD UREA NITROGEN 7 MG/DL (7-18); CHLORIDE 106 MEQ/L (98-107); GLOMERULAR FILTRATION RATE 184 ML/MIN (>89); POTASSIUM 3.7 MEQ/L (3.5-5.1); SODIUM (NA) 140 MEQ/L (136-145); TOTAL BILIRUBIN ADULT 0.3 MG/DL (0.2-1.0)
[2016-12-29] MEDS: GABAPENTIN 100 MG CAP PO SCH ×3 (10:44→17:52)
[2016-12-29] MEDS: ESCITALOPRAM OXALATE 10 MG TAB PO SCH (10:44)
[2016-12-29] MEDS: NIFEdipine 30 MG SUSTAINED RELEASE TAB PO SCH (10:45)
[2016-12-29] MEDS: PANTOPRAZOLE SOD 20 MG DELAYED RELEASE TAB PO SCH ×2 (10:45→19:57)
[2016-12-29] MEDS: LISINOPRIL 20 MG TAB PO SCH (10:45)
--- NOTE | 2016-12-29 14:52 | EKG ---
Date Performed: 12/28/2016 Time Performed: 17:25:32 PTAGE: 81 years EKG: SINUS TACHYCARDIA WITH OCCASIONAL VENTRICULAR PREMATURE COMPLEXES WITH OCCASIONAL SUPRAVENT RICULAR PREMATURE COMPLEXES NONSPECIFIC ST & T-WAVE ABNORMALITY ABNORMAL RHYTHM ECG Compared to prior tracing sinus rate has increased PREVIOUS TRACING : 11/02/2016 20.14 DOCTOR: Luis A Gutierrez Interpretating Date/Time 12/29/2016 14:52:17
[2016-12-29] MEDS: PIPERACIL-TAZO 3.375 GM PREMIX 50 ML IV SCH ×2 (15:57→19:58)
[2016-12-29] MEDS: ONDANSETRON HCL 4 MG/2 ML VIAL IV PUSH PRN (18:24)
[2016-12-29] MEDS: FLUTICASONE PROPIONATE 50 MCG/ACT 16 GM NASAL SPRAY NASAL SCH (19:57)
[2016-12-30] VITALS (7 sets, daily range): BP systolic 143–203; BP diastolic 67–92; PULSE 91–105; RESP 18; TEMP 98.4–99.3; O2SAT 91–100
[2016-12-30] MEDS: PIPERACIL-TAZO 3.375 GM PREMIX 50 ML IV SCH ×4 (02:37→23:45)
[2016-12-30] MEDS: ONDANSETRON HCL 4 MG/2 ML VIAL IV PUSH PRN ×2 (04:07→08:47)
[2016-12-30] MEDS: oxyCODONE/ACETAMINOPHEN 5 MG/325 MG TAB PO PRN ×3 (04:24→22:41)
[2016-12-30 05:49] LABS: AUTOMATED NEUTROPHIL # 14.4 TH/MM3 (1.8-7.7); BASOPHIL # 0.1 TH/MM3 (0-0.2); BASOPHIL % 0.3 % (0.0-2.0); EOSINOPHIL % 0.2 % (0.0-4.0); HEMATOCRIT 40.2 % (35.0-46.0); HEMO FLAGS DIFF FINAL; LYMPH % 14.3 % (9.0-44.0); LYMPHOCYTE # 2.6 TH/MM3 (1.0-4.8); MEAN CELL VOLUME 89.4 FL (80.0-100.0); MEAN CORPUSCULAR HEMOGLOBIN 28.7 PG (27.0-34.0); MEAN CORPUSCULAR HGB CONC 32.1 % (32.0-36.0); MONO % 5.9 % (0.0-8.0); NEUT % 79.3 % (16.0-70.0); PLATELET COUNT 275 TH/MM3 (150-450); RED BLOOD COUNT 4.49 MIL/MM3 (4.00-5.30); RED CELL DISTRIBUTION WIDTH 13.9 % (11.6-17.2); WHITE BLOOD COUNT 18.1 TH/MM3 (4.0-11.0)
[2016-12-30 06:05] LABS: BICARBONATE 26.1 MEQ/L (21.0-32.0); MAGNESIUM 2.1 MG/DL (1.5-2.5); POTASSIUM 3.3 MEQ/L (3.5-5.1)
[2016-12-30] MEDS: ARTIFICIAL TEARS OPTH SOLN 15 ML BTL EACH EYE SCH (08:39)
[2016-12-30] MEDS: FLUTICASONE PROPIONATE 50 MCG/ACT 16 GM NASAL SPRAY NASAL SCH ×2 (08:39→22:43)
[2016-12-30] MEDS: ESCITALOPRAM OXALATE 10 MG TAB PO SCH (08:41)
[2016-12-30] MEDS: GABAPENTIN 100 MG CAP PO SCH ×3 (08:41→17:42)
[2016-12-30] MEDS: LISINOPRIL 20 MG TAB PO SCH (08:41)
[2016-12-30] MEDS ORDERED: POTASSIUM CHLORIDE 10 MEQ CAP PO ONE (09:00)
[2016-12-30] MEDS: NIFEdipine 30 MG SUSTAINED RELEASE TAB PO SCH (09:00)
[2016-12-30] MEDS: PANTOPRAZOLE SOD 20 MG DELAYED RELEASE TAB PO SCH (09:00)
--- NOTE | 2016-12-30 09:24 | HHI.PR ---
Subjective Remarks Pt is still noted to be tachycardic on telemetry with HR running in the 110-140' s Pt noted to have a lot of PAC/PVCs She is still requiring supplemental O2 She complains of an upset stomach since she ate the pureed food yesterday. Objective Vitals Vital Signs Date Time Temp Pulse Resp B/P Pulse Ox O2 Delivery O2 Flow Rate FiO2 12/30/16 08:10 98.7 105 18 154/72 100 12/30/16 05:24 16 12/30/16 02:38 Nasal Cannula 2.00 12/30/16 01:29 101 12/30/16 01:04 98.4 99 18 143/67 91 12/29/16 20:01 99.8 100 20 133/70 99 12/29/16 19:19 97 12/29/16 15:43 98.7 104 20 162/71 100 12/29/16 11:25 98.5 101 15 146/67 100 12/29/16 12/29/16 12/30/16 15:00 23:00 07:00 Output Total 300 ml Balance -300 ml Output Urine Total 300 ml # Voids 3 # Bowel Movements 1 Result Diagram: 12/30/16 0407 12/30/16 0407 Other Results Laboratory Tests Test 12/28/16 12/28/16 12/28/16 12/29/16 17:00 18:00 18:25 08:37 White Blood Count 15.2 TH/MM3 20.3 TH/MM3 Red Blood Count 4.68 MIL/MM3 4.43 MIL/MM3 Hemoglobin 13.3 GM/DL 12.9 GM/DL Hematocrit 42.5 % 40.3 % Mean Corpuscular Volume 90.8 FL 91.1 FL Mean Corpuscular Hemoglobin 28.5 PG 29.2 PG Mean Corpuscular Hemoglobin 31.3 % 32.0 % Concent Red Cell Distribution Width 14.1 % 14.0 % Platelet Count 283 TH/MM3 280 TH/MM3 Mean Platelet Volume 10.7 FL 10.2 FL Neutrophils (%) (Auto) 80.8 % 90.4 % Lymphocytes (%) (Auto) 10.3 % 7.1 % Monocytes (%) (Auto) 8.1 % 2.3 % Eosinophils (%) (Auto) 0.2 % 0.0 % Basophils (%) (Auto) 0.6 % 0.2 % Neutrophils # (Auto) 12.2 TH/MM3 18.4 TH/MM3 Lymphocytes # (Auto) 1.6 TH/MM3 1.4 TH/MM3 Monocytes # (Auto) 1.2 TH/MM3 0.5 TH/MM3 Eosinophils # (Auto) 0.0 TH/MM3 0.0 TH/MM3 Basophils # (Auto) 0.1 TH/MM3 0.0 TH/MM3 CBC Comment DIFF FINAL DIFF FINAL Differential Comment Prothrombin Time 11.1 SEC Prothromb Time International 1.0 RATIO Ratio Activated Partial 22.6 SEC Thromboplast Time Sodium Level 139 MEQ/L 140 MEQ/L Potassium Level 4.4 MEQ/L 3.7 MEQ/L Chloride Level 104 MEQ/L 106 MEQ/L Carbon Dioxide Level 25.8 MEQ/L 23.7 MEQ/L Anion Gap 9 MEQ/L 10 MEQ/L Blood Urea Nitrogen 7 MG/DL 7 MG/DL Creatinine 0.55 MG/DL 0.40 MG/DL Estimat Glomerular Filtration 128 ML/MIN 184 ML/MIN Rate Random Glucose 93 MG/DL 105 MG/DL Calcium Level 8.6 MG/DL 8.6 MG/DL Total Bilirubin 0.4 MG/DL 0.3 MG/DL Aspartate Amino Transf 40 U/L 25 U/L (AST/SGOT) Alanine Aminotransferase 48 U/L 45 U/L (ALT/SGPT) Alkaline Phosphatase 229 U/L 216 U/L Total Creatine Kinase 94 U/L Troponin I LESS THAN 0.02 NG/ML Total Protein 7.2 GM/DL 7.2 GM/DL Albumin 2.6 GM/DL 2.6 GM/DL Thyroid Stimulating Hormone 1.510 uIU/ML 3rd Gen B-Type Natriuretic Peptide 69 PG/ML Lactic Acid Level 1.4 mmol/L Urine Color YELLOW Urine Turbidity HAZY Urine pH 5.5 Urine Specific [place] 1.028 Urine Protein 30 mg/dL Urine Glucose (UA) NEG mg/dL Urine Ketones TRACE mg/dL Urine Occult Blood SMALL Urine Nitrite NEG Urine Bilirubin NEG Urine Urobilinogen LESS THAN 2.0 MG/DL Urine Leukocyte Esterase TRACE Urine RBC 8 /hpf Urine WBC 8 /hpf Urine Squamous Epithelial 2 /hpf Cells Urine Bacteria RARE /hpf Urine Mucus MOD /lpf Urine Yeast (Budding) MOD Microscopic Urinalysis Comment CULTURE INDICATED Test 12/30/16 04:07 White Blood Count 18.1 TH/MM3 Red Blood Count 4.49 MIL/MM3 Hemoglobin 12.9 GM/DL Hematocrit 40.2 % Mean Corpuscular Volume 89.4 FL Mean Corpuscular Hemoglobin 28.7 PG Mean Corpuscular Hemoglobin 32.1 % Concent Red Cell Distribution Width 13.9 % Platelet Count 275 TH/MM3 Mean Platelet Volume 10.5 FL Neutrophils (%) (Auto) 79.3 % Lymphocytes (%) (Auto) 14.3 % Monocytes (%) (Auto) 5.9 % Eosinophils (%) (Auto) 0.2 % Basophils (%) (Auto) 0.3 % Neutrophils # (Auto) 14.4 TH/MM3 Lymphocytes # (Auto) 2.6 TH/MM3 Monocytes # (Auto) 1.1 TH/MM3 Eosinophils # (Auto) 0.0 TH/MM3 Basophils # (Auto) 0.1 TH/MM3 CBC Comment DIFF FINAL Differential Comment Sodium Level 140 MEQ/L Potassium Level 3.3 MEQ/L Chloride Level 106 MEQ/L Carbon Dioxide Level 26.1 MEQ/L Anion Gap 8 MEQ/L Blood Urea Nitrogen 6 MG/DL Creatinine 0.42 MG/DL Estimat Glomerular Filtration 174 ML/MIN Rate Random Glucose 83 MG/DL Calcium Level 9.2 MG/DL Magnesium Level 2.1 MG/DL Imaging Last 72 hours Impressions Chest X-Ray 12/28/16 1632 Signed Impressions: Service Date/Time: Wednesday, December 28, 2016 16:47 - CONCLUSION: No acute disease. No significant change has occurred. Alex White MD Objective Remarks General: NAD, AAOx3 Chest: CTA Cardiac: Irregular, tachy Abd: +BS, soft, NT/ND Ext: No edema A/P Problem List: (1) Dyspnea Status: Acute Plan: - Pt was admitted with worsening dyspnea, described more as a a feeling of being unable to catch her breath/breath out of her nose. - Patient does not appear in respiratory distress and her lungs are relatively clear on exam. - At admission it was felt that she likely has some underlying bronchitis and sinusitis contributing to her sensation of dyspnea. - She has no hx of CHF or COPD. - Pt was previously admitted in 10/2016 with similar symptoms and was found to be aspirating. Pt has hx of esophageal strictures and dysphagia. - She had an EGD on 11/05/16 --> oral and esophageal jr and was injected distally with Botox. - She states that she has not had any dysphagia at home but for the last week or so she has felt very full with eating minimal food. - CXR with no acute disease - Pt was given a dose of Solu-Medrol at admission and was continued on antibiotics, supplemental oxygen and PRN nebulizers. - Telemetry with noted tachycardia with multiple PACs/PVCs - Change Procardia XL to Metoprolol 25mg po BID this morning as the Metoprolol can be crushed and given in applesauce. - Home O2 walk test - ST recommended mechanical soft diet with nectar thickened liquids. No obvious s/s of aspiration per ST notes. - During previous admission family did not want PEG tube placed. - Antibiotics changed to Zosyn on 12/29 to cover for possible aspiration. - PT evaluation today - Once HR is better under control we will plan for discharge home with HHC/PT (2) Sinusitis Status: Acute Plan: - Pt provide with Flonase at admission - She is being given antibiotics and she received one dose of steroids at admission. (3) Hypertension Status: Chronic Plan: - Cont. Lisinopril - Change Procardia to Metoprolol (4) Chronic back pain Status: Chronic Plan: - Continue medication Assessment and Plan Patient examined. Assessment and plan formulated with Gosia Lemos PA-C. I agree with the above. aspiration. sinusitis. sinus tach with pac/pvc general weakness. discussed with pt and family. will d/c home tomorrow. Problem Qualifiers (1) Hypertension: Qualified Code: I10 - Essential hypertension (2) Chronic back pain: Gosia Lemos December 30, 2016 09:24 Sanford Vee MD December 30, 2016 14:43
[2016-12-30] MEDS: PANTOPRAZOLE SODIUM 40 MG VIAL IV PUSH SCH (10:24)
[2016-12-30] MEDS: METOPROLOL TARTRATE 25 MG TAB PO SCH ×2 (10:24→22:41)
[2016-12-30] MEDS ORDERED: LORATADINE 10 MG TAB PO ONE (14:45)
[2016-12-30] MEDS: cloNIDine HCL 0.2 MG TAB PO PRN (17:42)
[2016-12-31] VITALS (10 sets, daily range): BP systolic 137–237; BP diastolic 67–100; PULSE 62–85; RESP 17–23; TEMP 98.2–98.8; O2SAT 96–99
[2016-12-31] MEDS: PIPERACIL-TAZO 3.375 GM PREMIX 50 ML IV SCH ×3 (04:17→15:00)
[2016-12-31] MEDS: LORATADINE 10 MG TAB PO SCH (08:41)
[2016-12-31] MEDS: ARTIFICIAL TEARS OPTH SOLN 15 ML BTL EACH EYE SCH (08:41)
[2016-12-31] MEDS: METOPROLOL TARTRATE 25 MG TAB PO SCH ×2 (08:41→20:28)
[2016-12-31] MEDS: ESCITALOPRAM OXALATE 10 MG TAB PO SCH (08:41)
[2016-12-31] MEDS: FLUTICASONE PROPIONATE 50 MCG/ACT 16 GM NASAL SPRAY NASAL SCH ×2 (08:41→20:29)
[2016-12-31] MEDS: GABAPENTIN 100 MG CAP PO SCH ×3 (08:42→16:46)
[2016-12-31] MEDS: LISINOPRIL 20 MG TAB PO SCH (08:42)
[2016-12-31] MEDS: PANTOPRAZOLE SODIUM 40 MG VIAL IV PUSH SCH (08:45)
--- NOTE | 2016-12-31 08:59 | HHI.PR ---
Subjective Remarks No new complaints. Pt still on supplemental O2 BP significantly elevated this morning. Objective Vitals Vital Signs Date Time Temp Pulse Resp B/P Pulse Ox O2 Delivery O2 Flow Rate FiO2 12/31/16 07:42 237/100 12/31/16 07:36 98.6 85 17 182/86 99 12/31/16 04:36 98.7 77 18 138/77 97 12/31/16 02:30 71 12/31/16 00:24 98.4 80 18 137/78 98 12/30/16 23:46 18 12/30/16 20:33 Nasal Cannula 2.00 12/30/16 16:58 191/92 12/30/16 16:47 98.5 91 18 203/86 96 12/30/16 11:47 99.3 91 18 163/83 99 12/30/16 11:05 100 Nasal Cannula 2.00 12/30/16 12/30/16 12/31/16 15:00 23:00 07:00 # Voids 2 Result Diagram: 12/30/16 0407 12/30/16 0407 Other Results Laboratory Tests Test 12/30/16 04:07 White Blood Count 18.1 TH/MM3 Red Blood Count 4.49 MIL/MM3 Hemoglobin 12.9 GM/DL Hematocrit 40.2 % Mean Corpuscular Volume 89.4 FL Mean Corpuscular Hemoglobin 28.7 PG Mean Corpuscular Hemoglobin 32.1 % Concent Red Cell Distribution Width 13.9 % Platelet Count 275 TH/MM3 Mean Platelet Volume 10.5 FL Neutrophils (%) (Auto) 79.3 % Lymphocytes (%) (Auto) 14.3 % Monocytes (%) (Auto) 5.9 % Eosinophils (%) (Auto) 0.2 % Basophils (%) (Auto) 0.3 % Neutrophils # (Auto) 14.4 TH/MM3 Lymphocytes # (Auto) 2.6 TH/MM3 Monocytes # (Auto) 1.1 TH/MM3 Eosinophils # (Auto) 0.0 TH/MM3 Basophils # (Auto) 0.1 TH/MM3 CBC Comment DIFF FINAL Differential Comment Sodium Level 140 MEQ/L Potassium Level 3.3 MEQ/L Chloride Level 106 MEQ/L Carbon Dioxide Level 26.1 MEQ/L Anion Gap 8 MEQ/L Blood Urea Nitrogen 6 MG/DL Creatinine 0.42 MG/DL Estimat Glomerular Filtration 174 ML/MIN Rate Random Glucose 83 MG/DL Calcium Level 9.2 MG/DL Magnesium Level 2.1 MG/DL Imaging Last 72 hours Impressions Chest X-Ray 12/28/16 1632 Signed Impressions: Service Date/Time: Wednesday, December 28, 2016 16:47 - CONCLUSION: No acute disease. No significant change has occurred. Alex White MD Objective Remarks General: NAD, AAOx3 Chest: CTA Cardiac: Irregular, rate controlled Abd: +BS, soft, NT/ND Ext: No edema A/P Problem List: (1) Dyspnea Status: Acute Plan: - Pt was admitted with worsening dyspnea, described more as a a feeling of being unable to catch her breath/breath out of her nose. - Patient does not appear in respiratory distress and her lungs are relatively clear on exam. - At admission it was felt that she likely has some underlying bronchitis and sinusitis contributing to her sensation of dyspnea. - She has no hx of CHF or COPD. - Pt was previously admitted in 10/2016 with similar symptoms and was found to be aspirating. Pt has hx of esophageal strictures and dysphagia. - She had an EGD on 11/05/16 --> oral and esophageal jr and was injected distally with Botox. - She states that she has not had any dysphagia at home but for the last week or so she has felt very full with eating minimal food. - CXR with no acute disease - Pt was given a dose of Solu-Medrol at admission and was continued on antibiotics, supplemental oxygen and PRN nebulizers. - Telemetry with noted tachycardia with multiple PACs/PVCs - Change Procardia XL to Metoprolol 25mg po BID this morning as the Metoprolol can be crushed and given in applesauce. - Home O2 walk test - ST recommended mechanical soft diet with nectar thickened liquids. Pt with noted s/s of aspiration with thin liquids per the ST noted yesterday. - During previous admission family did not want PEG tube placed. - Antibiotics changed to Zosyn on 12/29 to cover for possible aspiration. - PT evaluated, pt only walked 8' x 2 but family reports that this is her baseline. No PT recommended for home. (2) Sinusitis Status: Acute Plan: - Pt provide with Flonase at admission - She is being given antibiotics and she received one dose of steroids at admission. - Pt was started on Claritin as well (3) Hypertension Status: Chronic Plan: - BP significantly elevated this morning - Cont. Lisinopril - Cont. Metoprolol 25mg po BID - Clonidine PRN (4) Chronic back pain Status: Chronic Plan: - Continue medication Assessment and Plan Patient examined. Assessment and plan formulated with Gosia Lemos PA-C. I agree with the above. poor po intake. general weakness. aspiration htn. diarrhea related to abx. hypokalemia discussed with family. hold d/c until tomorrow. replace kcl. stop abx.check cdiff. add back procardia modify diet. refused snf. d/c in AM if stable. high readmit risk. Problem Qualifiers (1) Hypertension: Qualified Code: I10 - Essential hypertension (2) Chronic back pain: Gosia Lemos December 31, 2016 08:59 Sanford Vee MD December 31, 2016 18:17
--- NOTE | 2016-12-31 09:02 | HHI.FF ---
Face to Face Verification Diagnosis: (1) Aspiration into airway (2) Sinusitis (3) Hypertension (4) Dysphagia Speech Therapy Order: To Improve: Swallowing Home Health Nursing Order: Signs/symptoms of disease process Nursing assessment with vital signs I have seen patient Radha Coronado on 12/31/16. My clinical findings support the need for the requested home health care services because: Ltd mobility - disease progression Deconditioned w/ increased weakness High risk of falls I certify that my clinical findings support that this patient is homebound because: Impaired cognitive ability/safety Unsafe to leave home unassisted Gosia Lemos December 31, 2016 09:02
[2016-12-31] MEDS: ONDANSETRON HCL 4 MG/2 ML VIAL IV PUSH PRN (10:52)
[2016-12-31] MEDS: oxyCODONE/ACETAMINOPHEN 5 MG/325 MG TAB PO PRN (11:06)
[2016-12-31] MEDS: cloNIDine HCL 0.2 MG TAB PO PRN (12:31)
[2016-12-31 13:40] LABS: BICARBONATE 26.2 MEQ/L (21.0-32.0)
[2016-12-31 13:44] LABS: POTASSIUM 2.9 MEQ/L (3.5-5.1)
[2016-12-31] MEDS ORDERED: POTASSIUM CHLORIDE 10 MEQ CAP PO ONE (16:00)
[2016-12-31] MEDS ORDERED: POTASSIUM CHLORIDE 10 MEQ CAP PO SCH (16:00)
[2016-12-31] MEDS: POTASSIUM CHLORIDE 10 MEQ CAP PO SCH ×2 (16:47→20:28)
[2016-12-31 22:58] LABS: C. DIFF EPI 027 PRESUMPTIVE NEGATIVE (NEGATIVE); C. DIFF TOXIN PCR NEGATIVE (NEGATIVE)
[2017-01-01] VITALS: BP 195/85; PULSE 71; RESP 20; TEMP 98.5; O2SAT 97
[2017-01-01] MEDS: cloNIDine HCL 0.2 MG TAB PO PRN (01:09)
[2017-01-01 04:00] VITALS: BP 204/82; PULSE 74; RESP 19; TEMP 98.5; O2SAT 100
[2017-01-01] MEDS: METOPROLOL TARTRATE 50 MG TAB PO SCH ×2 (04:58→08:02)
[2017-01-01] MEDS ORDERED: NIFEdipine 30 MG SUSTAINED RELEASE TAB PO SCH ×3 (07:30→09:00)
[2017-01-01] MEDS ORDERED: LOPERAMIDE HCL 2 MG CAP PO PRN (07:30)
[2017-01-01] MEDS ORDERED: LOPERAMIDE HCL 2 MG CAP PO ONE (07:30)
[2017-01-01 07:44] VITALS: BP 221/112; PULSE 65; RESP 21; TEMP 99.1; O2SAT 97
[2017-01-01] MEDS: ESCITALOPRAM OXALATE 10 MG TAB PO SCH (08:02)
[2017-01-01] MEDS: GABAPENTIN 100 MG CAP PO SCH (08:02)
[2017-01-01] MEDS: LISINOPRIL 20 MG TAB PO SCH (08:03)
[2017-01-01] MEDS: FLUTICASONE PROPIONATE 50 MCG/ACT 16 GM NASAL SPRAY NASAL SCH (08:03)
[2017-01-01] MEDS: ARTIFICIAL TEARS OPTH SOLN 15 ML BTL EACH EYE SCH (08:03)
[2017-01-01] MEDS: LORATADINE 10 MG TAB PO SCH (08:03)
--- NOTE | 2017-01-01 09:11 | HHI.PR ---
Subjective Remarks Pt reports one loose stool last night. Her BP was significantly elevated this morning 221/112 and pt just received all her BP medications, so we will wait for a repeat BP reading. Objective Vitals Vital Signs Date Time Temp Pulse Resp B/P Pulse Ox O2 Delivery O2 Flow Rate FiO2 01/01/17 07:44 99.1 65 21 221/112 97 01/01/17 04:00 98.5 74 19 204/82 100 01/01/17 00:00 98.5 71 20 195/85 97 12/31/16 21:47 66 144/72 12/31/16 20:53 98.2 75 19 182/83 96 12/31/16 20:00 71 12/31/16 15:16 98.8 62 20 151/67 98 12/31/16 11:18 98.7 76 23 180/81 97 12/31/16 12/31/16 01/01/17 15:00 23:00 07:00 # Voids 3 # Bowel Movements 3 Result Diagram: 12/30/16 0407 12/31/162119 Other Results Laboratory Tests Test 12/31/16 12/31/16 12/31/16 12:40 20:40 21:20 Sodium Level 140 MEQ/L Potassium Level 2.9 MEQ/L 3.5 MEQ/L Chloride Level 104 MEQ/L Carbon Dioxide Level 26.2 MEQ/L Anion Gap 10 MEQ/L Blood Urea Nitrogen 9 MG/DL Creatinine 0.52 MG/DL Estimat Glomerular Filtration 136 ML/MIN Rate Random Glucose 104 MG/DL Calcium Level 9.2 MG/DL Stool C. difficile Toxin (PCR) NEGATIVE Stl C. difficile Toxin PRESUMPTIVE Epiderm 027 NEGATIVE Imaging Last 72 hours Impressions Chest X-Ray 12/28/16 1632 Signed Impressions: Service Date/Time: Wednesday, December 28, 2016 16:47 - CONCLUSION: No acute disease. No significant change has occurred. Alex White MD Objective Remarks General: NAD, AAOx3 Chest: CTA Cardiac: Irregular, rate controlled Abd: +BS, soft, NT/ND Ext: No edema A/P Problem List: (1) Dyspnea Status: Acute Plan: - Pt was admitted with worsening dyspnea, described more as a a feeling of being unable to catch her breath/breath out of her nose. - Patient does not appear in respiratory distress and her lungs are relatively clear on exam. - At admission it was felt that she likely has some underlying bronchitis and sinusitis contributing to her sensation of dyspnea. - She has no hx of CHF or COPD. - Pt was previously admitted in 10/2016 with similar symptoms and was found to be aspirating. Pt has hx of esophageal strictures and dysphagia. - She had an EGD on 11/05/16 --> oral and esophageal jr and was injected distally with Botox. - She states that she has not had any dysphagia at home but for the last week or so she has felt very full with eating minimal food. - CXR with no acute disease - Pt was given a dose of Solu-Medrol at admission and was continued on antibiotics, supplemental oxygen and PRN nebulizers. - Telemetry with noted tachycardia with multiple PACs/PVCs - Change Procardia XL to Metoprolol 25mg po BID - Pts BP has been quite high periodically the last 2 days. - Procardia 30mg po daily was added back on on 01/01. Monitor BP and when more stable, anticipate discharge to home. - ST recommended mechanical soft diet with nectar thickened liquids. Pt with noted s/s of aspiration with thin liquids per the ST noted yesterday. - During previous admission family did not want PEG tube placed. - Antibiotics changed to Zosyn on 12/29 to cover for possible aspiration. - Pt developed some diarrhea yesterday and her K+ decreased to 2.7 on 12/31. Pt was given K+ supplementation and this improved. - Stools were negative for C. diff. - Zosyn was stopped on 12/31. Diarrhea is improving. - PT evaluated, pt only walked 8' x 2 but family reports that this is her baseline. No PT recommended for home. (2) Sinusitis Status: Acute Plan: - Pt provide with Flonase at admission - She is being given antibiotics and she received one dose of steroids at admission. - Pt was started on Claritin as well (3) Hypertension Status: Chronic Plan: - BP significantly elevated this morning - Cont. Lisinopril - Cont. Metoprolol 25mg po BID - Procardia XL 30mg po daily added on 01/01 - Clonidine PRN (4) Chronic back pain Status: Chronic Plan: - Continue medication Assessment and Plan Patient examined. Assessment and plan formulated with Gosia Canelo PA-C. I agree with the above. aspiration. sinusitis. htn. diarrhea related to abx. refused snf. d/c home Problem Qualifiers (1) Hypertension: Qualified Code: I10 - Essential hypertension (2) Chronic back pain: Gosia Lemos January 01, 2017 09:11 Sanford Vee MD January 01, 2017 21:07
[2017-01-01] MEDS: PANTOPRAZOLE SODIUM 40 MG VIAL IV PUSH SCH (10:00)
[2017-01-01 10:06] VITALS: BP 168/78
[2017-01-01 10:46] LABS: AUTOMATED NEUTROPHIL # 11.6 TH/MM3 (1.8-7.7); BASOPHIL % 0.3 % (0.0-2.0); EOSINOPHIL # 0.1 TH/MM3 (0-0.4); EOSINOPHIL % 0.5 % (0.0-4.0); HEMATOCRIT 39.2 % (35.0-46.0); HEMO FLAGS DIFF FINAL; LYMPH % 11.5 % (9.0-44.0); LYMPHOCYTE # 1.6 TH/MM3 (1.0-4.8); MEAN CELL VOLUME 89.4 FL (80.0-100.0); MEAN CORPUSCULAR HEMOGLOBIN 28.8 PG (27.0-34.0); MEAN CORPUSCULAR HGB CONC 32.3 % (32.0-36.0); MONO % 5.7 % (0.0-8.0); PLATELET COUNT 269 TH/MM3 (150-450); RED BLOOD COUNT 4.38 MIL/MM3 (4.00-5.30); RED CELL DISTRIBUTION WIDTH 13.9 % (11.6-17.2); WHITE BLOOD COUNT 14.2 TH/MM3 (4.0-11.0)
[2017-01-01 11:05] LABS: BICARBONATE 26.8 MEQ/L (21.0-32.0); MAGNESIUM 2.1 MG/DL (1.5-2.5); POTASSIUM 3.8 MEQ/L (3.5-5.1)
[2017-01-01 11:27] VITALS: BP 149/66; PULSE 55; RESP 14; TEMP 99.2; O2SAT 99
[2017-01-01] MEDS ORDERED: METO-309 PO (13:26)
== END 2017-01-01 15:22 | disposition home or self-care (01) | DRG 202 ==
LOC: NEPE 15:39 → NEDA 18:30 → NEPFCDU 22:21 → OBSVTOIN 12-31 15:33
PROVIDERS: ADMIT Hospitalist; ATTEND Hospitalist
DX: J40 Bronchitis, not specified as acute or chronic (principal); J18.9 Pneumonia, unspecified organism; G20 Parkinson's disease; I27.2 Other secondary pulmonary hypertension; R13.10 Dysphagia, unspecified; I10 Essential (primary) hypertension; E78.5 Hyperlipidemia, unspecified; J32.9 Chronic sinusitis, unspecified; G47.33 Obstructive sleep apnea (adult) (pediatric); H91.90 Unspecified hearing loss, unspecified ear; M48.00 Spinal stenosis, site unspecified; K21.9 Gastro-esophageal reflux disease without esophagitis; G89.29 Other chronic pain; E87.6 Hypokalemia; F40.240 Claustrophobia; I49.3 Ventricular premature depolarization; R00.0 Tachycardia, unspecified; M81.0 Age-related osteoporosis without current pathological fracture; Z86.73 Personal history of transient ischemic attack (TIA), and cerebral infarction without residual deficits
CPT/HCPCS: 71010; 80048; 80053; 81001; 82550; 83605; 83735; 83880; 84132; 84443; 84484; 85025; 85610; 85730; 87040; 87086; 87493; 93005; 94664; C9113; G0378; G8987-GP; G8988-GP; G8996-GN; G8997-GN; G8998-GN; J0456; J0696; J2405; J2543; J2920; J7030; J7040; J7050; J7613

== ENCOUNTER → 2017-01-20 | Day surgery (SDC) | payer MEDICARE ==
[~2017-01-20] MED LIST changes: -CIPR250T52 PO; -CLON.2T TD; -DIFL100T PO; +FLOR250C PO; +LACTATED RINGER'S 1000 ML INJ 1,000 ML ONE; +METO-309 PO; +PROPOFOL 100 MG/10 ML INJ IV ONE; +ceFAZolin INJ 1,000 MG VIAL ONE
--- NOTE | 2017-01-20 13:52 | GIPROC ---
[facility] [address], [id number] EGD WITH PEG PROCEDURE REPORT EXAM DATE: 01/20/2017 PATIENT NAME: Radha Coronado MR#: [id number] BIRTHDATE: 1935 ATTENDING: Arvind Andrews MD ORDER #: [id number] CHANGE AGENT: Kia Burris RN STATUS: outpatient INDICATIONS: The patient is a 81 yr old female here for an EGD with PEG due to weight loss and placement of PEG PROCEDURE PERFORMED: EGD with PEG placement MEDICATIONS: None and Per Anesthesia. TOPICAL ANESTHETIC: CONSENT: The patient understands the risks and benefits of the procedure and understands that these risks include, but are not limited to: sedation, allergic reaction, infection, perforation and/or bleeding. Alternative means of evaluation and treatment include, among others: physical exam, x-rays, and/or surgical intervention. The patient elects to proceed with this endoscopic procedure. medical equipment was checked for proper function. Hand hygiene and appropriate measures for infection prevention was taken. After the risks, benefits and alternatives of the procedure were thoroughly explained, Informed consent was verified, confirmed and timeout was successfully executed by the treatment team. The patient was anesthetized with topical anesthesia and the EC-[id number] ([id number]) endoscope was introduced through the mouth and advanced to the second portion of the duodenum. The instrument was slowly withdrawn as the mucosa was fully examined. There was severe jr esophagitis throughout the whole esophagus. A hiatal hernia was found 3 cm Moderate gastritis was found in the antrum. erythema. Normal EGD otherwise The stomach was then inflated with air, and by a combination of transillumination and manual palpation, the site for the gastrostomy tube placement was selected and marked on the anterior abdominal wall. The skin of the anterior abdomen was surgically prepped and draped with sterile towels. Utilizing strict sterile technique, the selected site was then anesthetized with 1% xylocaine by injection into the skin and subcutaneous tissue. A 1 cm incision was made through the skin and subcutaneous tissue, and the needle/cannula assembly was then passed through the abdominal wall and through the anterior wall of the stomach, maintaining visualization with the endoscope. A snare device previously placed through the instrument channel was then opened and placed around the cannula, the needle was removed, and the insertion wire was passed through the cannula and into the stomach lumen. The snare was then loosened from the cannula, and repositioned to snare the insertion wire. The snare was then pulled up to the endoscope distal tip, and the scope was then withdrawn bringing with it the snare and insertion wire. The insertion wire was then released from the snare, and then loop-attached to the Bard 20 Fr gastrostomy tube. Using the "pull technique", the G-tube was then pulled into place by traction on the insertion wire at the abdominal wall end. The G-tube insertion site was then cleansed once again, and the external bolster was placed over the tube to secure it to the abdominal wall. A sterile dressing was then applied, and the procedure terminated. no abnormalities The gastroscope was then slowly withdrawn and removed. ADVERSE EVENT: There were no complications. IMPRESSIONS: 1. 3 cm A hiatal hernia was found 2. Moderate gastritis was found in the antrum 3. jr esophagitis RECOMMENDATIONS: 1. PEG recomendations: 1- NPO for 6 hours except for meds 2- Flush PEG tube every 6 hours with water and after each PEG feeding 3- May resume regular diet in the morning 4- May use Ensure or Boost etc. for PEG tube feeding 2. Follow-up: GI clinic 3 week(s) 3. Diflucan 100mg po daily for 10 days REPEAT EXAM: Arvind Andrews MD eSigned: Arvind Andrews MD 01/20/2017 1:52 PM cc: Luz Cuellar PATIENT NAME: Radha Coronado MR#: [id number]
== END | disposition home or self-care (01) ==
LOC: ESDC 11:01
PROVIDERS: ATTEND Internal Medicine Gastroenterology
DX: R63.4 Abnormal weight loss (principal); K44.9 Diaphragmatic hernia without obstruction or gangrene; K29.70 Gastritis, unspecified, without bleeding; B37.81 Candidal esophagitis
CPT/HCPCS: 00740; 43246; J0690; J7120

== ENCOUNTER 2017-02-19 09:42 | Emergency (ER) | payer MEDICARE ==
[~2017-02-19 09:42] MED LIST changes: -LACTATED RINGER'S 1000 ML INJ 1,000 ML ONE; -PROPOFOL 100 MG/10 ML INJ IV ONE; -ceFAZolin INJ 1,000 MG VIAL ONE
[2017-02-19 09:44] VITALS: BP 140/65; PULSE 86; RESP 28; TEMP 99.5; O2SAT 97
[2017-02-19] MEDS ORDERED: AMLO2.5T PO (10:00)
[2017-02-19] MEDS ORDERED: HYOS0.128 PO (10:00)
--- NOTE | 2017-02-19 10:16 | PD ---
HPI Chief Complaint: Fall Time Seen by Provider: 10:00 Travel History International Travel<30 days: No Contact w/Intl Traveler<30days: No Traveled to known affect area: No History of Present Illness HPI 81-year-old female complains of right hip pain right knee pain and shortness of breath. Patient's family states that patient fell 2 days ago. Patient states that she injured her right hip and right knee at that time. Patient denies any head injury. Patient denies any headache or neck pain. Patient states that she has been short of breath since yesterday. Patient has history of COPD and has been using nebulizer at home. Patient states that she has intermittent wheezing at home. Patient denies abdominal pain. Patient denies any nausea vomiting diarrhea. Patient has a feeding tube which she uses occasionally for nutritional supplement. Patient has not has to use the feeding tube for the past 2 weeks. Patient has history hypertension however has not on medication recently for that. Patient states that her blood pressure has been under control without medications. Patient denies any fever chills. Patient denies any dysuria or frequency. PFSH Past Medical History Arthritis: Yes Asthma: No Anxiety: No Depression: Yes Heart Rhythm Problems: No Cancer: No Cardiovascular Problems: Yes High Cholesterol: No Chemotherapy: No Chest Pain: No Congestive Heart Failure: No COPD: No Cerebrovascular Accident: No Diabetes: No Diminished Hearing: Yes Endocrine: No Gastrointestinal Disorders: Yes (GERD, constipation, esophageal dil/botox) GERD: No Genitourinary: Yes (Incontinence) Headaches: No Hepatitis: No Hiatal Hernia: Yes Heparin Induced Thrombocytopen: No Hypertension: Yes Immune Disorder: No Implanted Vascular Access Dvce: Yes Kidney Stones: No Musculoskeletal: Yes (Neuropathy, spinal stenosis, osteoporosis) Neurologic: Yes (TIA) Psychiatric: Yes (Claustrophobia) Reproductive: No Respiratory: Yes Migraines: No Radiation Therapy: No Renal Failure: No Seizures: No Sickle Cell Disease: No Sleep Apnea: Yes Thyroid Disease: No Ulcer: Yes ?: Not : 6 Para: 6 Past Surgical History Abdominal Surgery: Yes (Cholecystecomy, insertion nerve stimulator (abdomen)) AICD: No Arteriovenous Shunt: No Body Medical Devices: Abdomen stimulator, cochlear implant Cardiac Surgery: No Cholecystectomy: Yes Ear Surgery: Yes (Cochlear left eat implant) Endocrine Surgery: No Eye Surgery: No Genitourinary Surgery: No Gynecologic Surgery: Yes (Hysterectomy) Hysterectomy: Yes Insulin Pump: No Joint Replacement: No Neurologic Surgery: No Oral Surgery: No Pacemaker: No Thoracic Surgery: No Other Surgery: Yes Social History Alcohol Use: No Tobacco Use: No Substance Use: No Allergies-Medications (Allergen,Severity, Reaction): Coded Allergies: Carbidopa (Verified Allergy, Severe, 02/19/17) Cymbalta (Unverified Adverse Reaction, Severe, NAUSEA, 11/02/16) Sinemet 10/100 (Unverified Adverse Reaction, Severe, HYPERTENSIOIN, LETHARGY, 11/02/16) *MDRO Multi-Drug Resistant Organism (Verified Adverse Reaction, Unknown, ) ESBL k.Pneumoniae (urine)-11/02/16 Reported Meds & Prescriptions Reported Meds & Active Scripts Active Lopressor (Metoprolol Tartrate) 50 Mg Tab 50 Mg PO Q12HR 30 Days Duoneb (Ipratropium-Albuterol Neb) 0.5-2.5 Mg/3 Ml Neb 1 Ampule NEB Q6HR PRN 30 Days Gabapentin 100 Mg Cap 100 Mg PO TID 30 Days Oxycodone-Acetaminophen 5-325 mg Tab 1 Tab PO Q6H PRN Reported Hyoscyamine (Hyoscyamine Sulfate) 0.125 Mg Tab 0.125 Mg PO Q6H Amlodipine (Amlodipine Besylate) 2.5 Mg Tab 2.5 Mg PO DAILY Florastor (Saccharomyces Boulardii) 250 Mg Cap 250 Mg PO TID Omeprazole 20 Mg Tab 20 Mg PO BID Lisinopril 20 Mg Tab 20 Mg PO DAILY Lexapro (Escitalopram Oxalate) 10 Mg Tab 10 Mg PO DAILY Genteal Tears Opth Drops (Artificial Tears Opth Drops) 0.1-0.2-0.3% Soln 1 Drop EACH EYE DAILY Review of Systems General / Constitutional: No: Fever Eyes: No: Visual changes HENT: No: Headaches Cardiovascular: No: Chest Pain or Discomfort Respiratory: Positive: Shortness of Breath, Wheezing Gastrointestinal: No: Abdominal Pain Genitourinary: No: Dysuria Musculoskeletal: Positive: Pain Skin: No Rash Neurologic: No: Weakness Psychiatric: No: Depression Endocrine: No: Polydipsia Hematologic/Lymphatic: No: Easy Bruising Physical Exam Narrative GENERAL: Well-nourished, well-developed patient. SKIN: Focused skin assessment warm/dry. HEAD: Normocephalic. EYES: No scleral icterus. No injection or drainage. NECK: Supple, trachea midline. No JVD or lymphadenopathy. CARDIOVASCULAR: Regular rate and rhythm without murmurs, gallops, or rubs. RESPIRATORY: Breath sounds equal bilaterally. No accessory muscle use. Patient has rhonchi bibasilar. No wheezes. GASTROINTESTINAL: Abdomen soft, non-tender, nondistended. MUSCULOSKELETAL: No cyanosis, or edema. Patient has moderate diffuse tenderness lateral aspect the right hip. Full range of motion right hip joint. Moderate diffuse tenderness of the right knee joint. Mild soft tissue swelling noted no. No effusion noted. Knee joints stable. Mild diffuse tenderness over the right ankle joint. BACK: Nontender without obvious deformity. No CVA tenderness. Neurologic exam normal. Data Data Last Documented VS Vital Signs Date Time Temp Pulse Resp B/P Pulse Ox O2 Delivery O2 Flow Rate FiO2 02/19/17 10:35 96 02/19/17 09:44 99.5 86 28 140/65 Room Air Orders Complete Blood Count With Diff (02/19/17 10:08) Basic Metabolic Panel (Bmp) (02/19/17 10:08) Urinalysis - C+S If Indicated (02/19/17 10:08) Chest, Single Ap (02/19/17 10:08) Iv Access Insert/Monitor (02/19/17 10:08) Ecg Monitoring (02/19/17 10:08) Oximetry (02/19/17 10:08) Ankle, Complete ([id number]) (02/19/17 10:08) Hip, Uni(Ap&Lat) W Ap Pelvis (02/19/17 10:08) Knee, Complete (4vws) (02/19/17 10:08) Prothrombin Time / Inr (Pt) (02/19/17 10:14) Act Partial Throm Time (Ptt) (02/19/17 10:14) Labs Laboratory Tests Test 02/19/17 10:20 White Blood Count 11.2 TH/MM3 Red Blood Count 3.97 MIL/MM3 Hemoglobin 11.6 GM/DL Hematocrit 35.9 % Mean Corpuscular Volume 90.5 FL Mean Corpuscular Hemoglobin 29.1 PG Mean Corpuscular Hemoglobin 32.2 % Concent Red Cell Distribution Width 17.0 % Platelet Count 214 TH/MM3 Mean Platelet Volume 9.8 FL Neutrophils (%) (Auto) 75.0 % Lymphocytes (%) (Auto) 13.8 % Monocytes (%) (Auto) 8.4 % Eosinophils (%) (Auto) 1.9 % Basophils (%) (Auto) 0.9 % Neutrophils # (Auto) 8.4 TH/MM3 Lymphocytes # (Auto) 1.5 TH/MM3 Monocytes # (Auto) 0.9 TH/MM3 Eosinophils # (Auto) 0.2 TH/MM3 Basophils # (Auto) 0.1 TH/MM3 CBC Comment DIFF FINAL Differential Comment Prothrombin Time 10.4 SEC Prothromb Time International 0.9 RATIO Ratio Activated Partial 22.6 SEC Thromboplast Time Sodium Level 140 MEQ/L Potassium Level 4.7 MEQ/L Chloride Level 107 MEQ/L Carbon Dioxide Level 27.2 MEQ/L Anion Gap 6 MEQ/L Blood Urea Nitrogen 12 MG/DL Creatinine 0.46 MG/DL Estimat Glomerular Filtration 157 ML/MIN Rate Random Glucose 76 MG/DL Calcium Level 8.9 MG/DL MDM Medical Decision Making Medical Screen Exam Complete: Yes Emergency Medical Condition: Yes Interpretation(s) Last Impressions Knee X-Ray 02/19/17 1008 Signed Impressions: Service Date/Time: Sunday, February 19, 2017 11:14 - CONCLUSION: No acute fracture or dislocation. Alex White MD Hip and Pelvis X-Ray 02/19/17 1008 Signed Impressions: Service Date/Time: Sunday, February 19, 2017 11:14 - CONCLUSION: 1. No acute fracture or dislocation. Nacho Salguero MD Chest X-Ray 02/19/17 1008 Signed Impressions: Service Date/Time: Sunday, February 19, 2017 10:57 - CONCLUSION: No acute cardiopulmonary disease. Nacho Salguero MD Ankle X-Ray 02/19/17 1008 Signed Impressions: Service Date/Time: Sunday, February 19, 2017 10:57 - CONCLUSION: No acute fracture or dislocation. Nacho Salguero MD 1302 p.m. CBC WBC 11.2. 75 neutrophil. BMP within normal limit. Differential Diagnosis Differential diagnosis including acute exacerbation COPD, bronchitis, pneumonia , PE, pneumothorax, contusion, fracture, dislocation. Narrative Course 81-year-old female with right hip pain, right knee pain right ankle pain and shortness of breath. Status post fall. History of COPD. Diagnosis Primary Impression: Multiple contusions Patient Instructions: General Instructions Additional Instructions: Tylenol for pain. Continue with all medications. Albuterol treatment is needed for shortness of breath. Follow-up with personal physician. Return if worse. Med/Other Pt SpecificInfo: No Change to Meds Disposition: 01 DISCHARGE HOME Condition: Stable Felipe Gómez MD Feb 19, 2017 10:16
[2017-02-19 10:35] VITALS: O2SAT 96
[2017-02-19 10:39] LABS: AUTOMATED NEUTROPHIL # 8.4 TH/MM3 (1.8-7.7); BASOPHIL # 0.1 TH/MM3 (0-0.2); BASOPHIL % 0.9 % (0.0-2.0); EOSINOPHIL # 0.2 TH/MM3 (0-0.4); EOSINOPHIL % 1.9 % (0.0-4.0); HEMATOCRIT 35.9 % (35.0-46.0); HEMO FLAGS DIFF FINAL; LYMPH % 13.8 % (9.0-44.0); LYMPHOCYTE # 1.5 TH/MM3 (1.0-4.8); MEAN CELL VOLUME 90.5 FL (80.0-100.0); MEAN CORPUSCULAR HEMOGLOBIN 29.1 PG (27.0-34.0); MEAN CORPUSCULAR HGB CONC 32.2 % (32.0-36.0); MONO % 8.4 % (0.0-8.0); PLATELET COUNT 214 TH/MM3 (150-450); RED BLOOD COUNT 3.97 MIL/MM3 (4.00-5.30); WHITE BLOOD COUNT 11.2 TH/MM3 (4.0-11.0)
[2017-02-19 10:50] LABS: APTT (PATIENT) 22.6 SEC (24.3-30.1); INTERNATIONAL NORMALIZED RATIO 0.9 RATIO; PROTHROMBIN TIME - PATIENT 10.4 SEC (9.8-11.6)
[2017-02-19 10:58] LABS: BICARBONATE 27.2 MEQ/L (21.0-32.0)
[2017-02-19 11:03] LABS: POTASSIUM 4.7 MEQ/L (3.5-5.1)
--- NOTE | 2017-02-19 11:36 | RADRPT ---
EXAM DATE/TIME: 02/19/2017 10:57 [facility] COMPARISON: No previous studies available for comparison. INDICATIONS : Right ankle pain post fall. MEDICAL HISTORY : None. SURGICAL HISTORY : None. ENCOUNTER: Initial ACUITY: 2 days PAIN SCORE: 8/10 LOCATION: Right Ankle FINDINGS: Three view exam was performed of the right ankle. The bony structures are in normal alignment. No e vidence of fracture, dislocation, or soft tissue swelling. The ankle mortise is intact. No radiopaq ue foreign bodies are seen. Diffuse osteopenia. Vascular calcifications involving the posterior tibia l artery. CONCLUSION: No acute fracture or dislocation. Nacho Salguero MD on February 19, 2017 at 11:33 Board Certified Radiologist. This report was verified electronically.
--- NOTE | 2017-02-19 11:38 | RADRPT ---
EXAM DATE/TIME: 02/19/2017 10:57 [facility] COMPARISON: CHEST SINGLE AP, December 28, 2016, 16:47. INDICATIONS : Short of breath post fall. MEDICAL HISTORY : Chronic obstructive pulmonary disease. Hypertension SURGICAL HISTORY : Spinal cord stimulator in back. ENCOUNTER: Initial ACUITY: 1 day PAIN SCORE: 0/10 LOCATION: Bilateral chest FINDINGS: A single view of the chest demonstrates the lungs to be symmetrically aerated without evidence of mas s, infiltrate or effusion. The cardiomediastinal contours are unremarkable. Apparent spinal stimula tor in place. Left humeral plate and screw fixation. Remaining osseous structures appear intact. CONCLUSION: No acute cardiopulmonary disease. Nacho Salguero MD on February 19, 2017 at 11:35 Board Certified Radiologist. This report was verified electronically.
--- NOTE | 2017-02-19 11:40 | RADRPT ---
EXAM DATE/TIME: 02/19/2017 11:14 [facility] COMPARISON: No previous studies available for comparison. INDICATIONS : Right hip pain post fall. MEDICAL HISTORY : None. SURGICAL HISTORY : None. ENCOUNTER: Initial ACUITY: 2 days PAIN SCORE: 8/10 LOCATION: Right Hip FINDINGS: Examination of the right hip was performed with AP Pelvis. Osseous structures appear intact without e vidence for acute bony fracture. Degenerative changes noted about the hips bilaterally. Osseous struc tures appear diffusely osteopenic. The visualized sacral arches are intact. Soft tissues are grossly unremarkable. CONCLUSION: 1. No acute fracture or dislocation. Nacho Salguero MD on February 19, 2017 at 11:36 Board Certified Radiologist. This report was verified electronically.
--- NOTE | 2017-02-19 11:41 | RADRPT ---
EXAM DATE/TIME: 02/19/2017 11:14 [facility] COMPARISON: KNEE RIGHT COMPLETE (4VWS), August 02, 2015, 12:24. INDICATIONS : Right anterior knee pain post fall. MEDICAL HISTORY : None. SURGICAL HISTORY : Hardware placed for previous femur fracture. ENCOUNTER: Initial ACUITY: One day PAIN SCORE: 8/10 LOCATION: Right Knee. FINDINGS: Four view examination of the right knee demonstrates no evidence of acute fracture or dislocation. Th ere is evidence of previous internal fixation of the distal tibia. The hardware is grossly intact. No joint dislocation. There is osteopenia of the bony structures. No joint effusion is demonstrated. Th e hardware is grossly intact. CONCLUSION: No acute fracture or dislocation. Alex White MD on February 19, 2017 at 11:38 Board Certified Radiologist. This report was verified electronically.
== END 2017-02-19 13:47 | disposition home or self-care (01) ==
LOC: NEPC 09:42
DX: S70.01XA Contusion of right hip, initial encounter (principal); S80.01XA Contusion of right knee, initial encounter; S90.01XA Contusion of right ankle, initial encounter; R06.02 Shortness of breath; J44.9 Chronic obstructive pulmonary disease, unspecified; K21.9 Gastro-esophageal reflux disease without esophagitis; G62.9 Polyneuropathy, unspecified; M81.0 Age-related osteoporosis without current pathological fracture; W19.XXXA Unspecified fall, initial encounter
CPT/HCPCS: 71010; 73502; 73564; 73610; 80048; 85025; 85610; 85730; 99284